=== PATIENT | female | born 1940 | race Caucasian/White ===

== ENCOUNTER → 2017-07-08 08:03 | Outpatient (CLI) | payer MEDICARE, OTHER, SELFPAY ==
[2017-07-08 08:54] LABS: AST(SGOT) 17 U/L (15-37); Alanine Aminotransfer ALT/SGPT 28 U/L (13-56); Albumin, Serum 3.5 g/dL (3.2-5.0); Alkaline Phosphatase 116 U/L (45-117); Bilirubin, Direct 0.12 mg/dL (0.00-0.30); Cholesterol 132 mg/dL (200); Globulin 4.4 g/dL (2.2-4.2); High Density Lipoprotein 41 mg/dL; Protein, Total 7.9 g/dL (6.4-8.2); Triglycerides 171 mg/dL; Very Low Density Lipoprotein 34 mg/dL (5-40)
== END ==
PROVIDERS: Family Provider Family Medicine; PCP Family Medicine; Visit Provider Nurse Practitioner Family
DX: E78.5 Hyperlipidemia, unspecified (principal); Z79.899 Other long term (current) drug therapy
CPT/HCPCS: 36415; 80061; 80076

== ENCOUNTER → 2018-03-28 10:29 | Outpatient (CLI) | payer MEDICARE, OTHER, SELFPAY ==
[2018-03-17 15:46] VITALS: BMI 30.7
--- NOTE | 2018-03-28 10:32 | STEWCON_ITS ---
Reason For Study: S/P CABG Stress Results Protocol: Dobutamine Stress Echo Maximum Predicted HR: 145 bpm Target HR: 123 bpm % Maximum Predicted HR: 94 % DurationHeart Rate Stage (mm:ss) (bpm) BP Dose Comment BASELINE 75 155/75 DILUTED DEFINITY 6 ML USED DSE- 10 MCG 3:41 78 157/74 10.00 DSE- 20 MCG 3:17 91 181/77 20.00 DSE- 30 MCG 3:50 116 154/[id number] 0.25 MG IVP GIVEN @ 1120 DSE- 40 MCG 3:34 136 152/76 40.00 RECOVERY 97 131/73 Stress Duration: 14:22 mm:ss Maximum Stress HR: 136 bpm Baseline Echocardiogram Findings The estimated ejection fraction is 50 %. Stress Echo Wall motion Data Resting WM Intermediate WM Stress WM Resting Wall Motion Wall Motion Stress No regional wall motion No regional wall motion abnormalities noted. abnormalities noted. EKG Data The baseline ECG displays normal sinus rhythm. The patient was titrated from 10 mcg to a maximum of 40 mcg of dobutamine during the stress. The maximum heart rate attained was 136 beats per minute. This was 93% of maximum predicted heart rate. During dobutamine infusion, there were no ST or T wave changes noted to suggest ischemia. No clinical angina was noted. No arrhythmias noted. Interpretation Summary The estimated ejection fraction is 50 %. Normal, adequate, dobutamine echocardiogram. Negative for ischemia by EKG and echocardiographic criteria. No anginal symptoms noted. No arrhythmias noted. Decreased sensitivity due to poor echo windows requiring Definity agent. Hypertensive BP response to dobutamine. Final LVEF of 65%. Test terminated due to attainment of target heart rate. No complications. The study was technically difficult. Contrast injection was performed. Ordering Physician: Tee Jimenez Referring Physician: Tee Jimenez Performed By: Cholo Keyes RCS
== END ==
PROVIDERS: Family Provider Family Medicine; PCP Family Medicine; Referring Provider Internal Medicine Cardiovascular Disease; Visit Provider Internal Medicine Cardiovascular Disease
DX: Z95.1 Presence of aortocoronary bypass graft (principal); I25.10 Atherosclerotic heart disease of native coronary artery without angina pectoris; I49.3 Ventricular premature depolarization; E78.5 Hyperlipidemia, unspecified
CPT/HCPCS: 93017; 93350; J7040; Q9957; A4216; C8928

== ENCOUNTER → 2018-10-10 08:14 | Outpatient (CLI) | payer MEDICARE, OTHER, SELFPAY ==
[2018-10-03 10:11] VITALS: BMI 30.7
[2018-10-10 09:33] LABS: AST(SGOT) 16 U/L (15-37); Alanine Aminotransfer ALT/SGPT 31 U/L (13-56); Albumin, Serum 3.4 g/dL (3.2-5.0); Alkaline Phosphatase 117 U/L (45-117); Bilirubin, Direct 0.09 mg/dL (0.00-0.30); Cholesterol 136 mg/dL (200); High Density Lipoprotein 43 mg/dL; Protein, Total 7.4 g/dL (6.4-8.2); Triglycerides 162 mg/dL; Very Low Density Lipoprotein 32 mg/dL (5-40)
== END ==
PROVIDERS: Family Provider Family Medicine; PCP Family Medicine; Referring Provider Internal Medicine Cardiovascular Disease; Visit Provider Internal Medicine Cardiovascular Disease
DX: E78.5 Hyperlipidemia, unspecified (principal); I25.10 Atherosclerotic heart disease of native coronary artery without angina pectoris
CPT/HCPCS: 36415; 80061; 80076

== ENCOUNTER → 2019-04-20 08:08 | Outpatient (CLI) | payer MEDICARE, OTHER, SELFPAY ==
[2019-04-20 09:03] LABS: Hematocrit 36.1 % (37-47); Hemoglobin 11.4 g/dL (12.0-15.0); Mean Corp Hgb Conc 31.6 g/dL (32-36); Mean Corpuscular Hgb 31.1 pg (27.0-32.0); Mean Corpuscular Volume 98.6 fL (81-99); Platelet Count 213 K/mm3 (150-450); RBC Distribution Width CV 12.8 % (11.6-14.6); Red Blood Count 3.66 M/mm3 (4.2-5.4); White Blood Count 7.3 K/mm3 (4.4-11.0)
[2019-04-20 09:33] LABS: ALB/GLOB Ratio 0.9 RATIO (0.9-2.4); AST(SGOT) 21 U/L (15-37); Alanine Aminotransfer ALT/SGPT 32 U/L (13-56); Albumin, Serum 3.5 g/dL (3.2-5.0); Alkaline Phosphatase 123 U/L (45-117); Anion Gap 6 (5-15); BUN 29 mg/dL (7-18); BUN/Creat Ratio 20.9 RATIO (10-20); Bilirubin, Direct 0.11 mg/dL (0.00-0.30); Chloride 112 mmol/L (98-107); Cholesterol 157 mg/dL (200); Creatinine, Serum 1.39 mg/dL (0.55-1.02); EST Glomerular Filtration Rate 39 mL/min (>60); Est Glom Filt Rate - Afr Amer 47 mL/min (>60); Ferritin 19 ng/mL (8-252); Globulin 4.1 g/dL (2.2-4.2); Glucose 105 mg/dL (74-106); High Density Lipoprotein 50 mg/dL; Iron 76 ug/dL (50-170); Iron Binding Capacity,Total 402 ug/dL (250-450); PERCENT IRON SATURATION 18.9 % (15.0-55.0); Potassium 4.9 mmol/L (3.5-5.1); Protein, Total 7.6 g/dL (6.4-8.2); Sodium Level 143 mmol/L (136-145); Thyroid Stim Hormone (TSH) 2.62 uIU/mL (0.358-3.74); Triglycerides 162 mg/dL; Very Low Density Lipoprotein 32 mg/dL (5-40)
== END ==
PROVIDERS: PCP Student in an Organized Health Care Education/Training Program; Referring Provider Internal Medicine Cardiovascular Disease; Visit Provider Internal Medicine Cardiovascular Disease
DX: E11.9 Type 2 diabetes mellitus without complications (principal); E78.00 Pure hypercholesterolemia, unspecified; E78.5 Hyperlipidemia, unspecified; Z78.0 Asymptomatic menopausal state; Z78.9 Other specified health status
CPT/HCPCS: 80053; 80061; 82248; 82728; 83540; 83550; 84443; 85027

== ENCOUNTER → 2019-04-22 07:49 | Outpatient (CLI) | payer MEDICARE, OTHER, SELFPAY ==
--- NOTE | 2019-04-22 07:50 | ECHOD_ITS ---
Reason For Study: CAD/ASHD Procedure This was a 2D Doppler, Color Flow transthoracic echocardiogram. Exam performed in department. Left Ventricle Normal size and thickness. The estimated ejection fraction is 65 %. Stage 1 diastolic dysfunction. No regional wall motion abnormalities noted. Right Ventricle Normal size and thickness. Normal systolic function. Atria Normal left atrium. Normal right atrium. Normal atrial septum. Mitral Valve Mild diffuse mitral valve thickening. Severe mitral annular calcification extending into the posterior leaflet. Trivial mitral valve insufficiency. Tricuspid Valve Normal tricuspid valve. Trivial tricuspid valve insufficiency. Right ventricular systolic pressure estimated to be 29 mmHg. Aortic Valve Trisinus/trileaflet aortic valve. Aortic sclerosis, no stenosis. Pulmonic Valve Normal pulmonic valve. Great Vessels Normal aortic root. Normal arch. Mild atherosclerosis of the aortic arch. Normal inferior vena cava. Inferior vena cava collapse with sniff. Pericardium/Pleural No pericardial effusion. MMode/2D Measurements & Calculations LVIDd: 4.8 cm IVSd: 1.1 cm Ao root diam: 2.9 cm LVIDs: 3.3 cm LVPWd: 1.2 cm RVDd: 3.1 cm FS: 32.3 % LAV(MOD-bp): 54.3 ml LVAd ap4: 22.6 cm2 SV(MOD-sp4): 38.2 ml LAV(MOD-bp) Indexed: 31.9 ml/m2 EDV(MOD-sp4): 59.6 ml LAV(MOD-sp2): 46.6 ml EDV(sp4-el): 61.8 ml LAV(MOD-sp4): 62.3 ml LVAs ap4: 12.5 cm2 ESV(MOD-sp4): 21.4 ml ESV(sp4-el): 21.1 ml EF(MOD-sp4): 64.1 % EF(sp4-el): 65.9 % SV(sp4-el): 40.7 ml LA A4 area: 19.8 cm2 LA dimension(2D): 4.9 cm RA A4 area: 12.3 cm2 Time Measurements MV dec time: 0.14 sec Doppler Measurements & Calculations MV E max presley: 94.4 cm/sec Lat Peak E' Presley: 6.8 cm/sec Med Peak E' Presley: 3.4 cm/sec MV A max presley: 131.6 cm/sec E/E' lat: 13.8 E/E' med: 27.6 MV E/A: 0.72 MV V2 max: 148.8 cm/sec MV P1/2t max presley: 115.8 cm/sec Ao V2 max: 150.2 cm/sec MV max P.9 mmHg MV P1/2t: 85.0 msec Ao max P.0 mmHg MV V2 mean: 93.8 cm/sec Ao V2 mean: 101.2 cm/sec MV mean P.8 mmHg MV dec slope: 399.3 cm/sec2 Ao mean P.6 mmHg MV V2 VTI: 40.1 cm MVA(P1/2t): 2.6 cm2 Ao V2 VTI: 34.8 cm LV V1 max: 102.8 cm/sec PA V2 max: 108.0 cm/sec TR max presley: 246.0 cm/sec LV V1 max P.2 mmHg TR max P.2 mmHg Interpretation Summary The estimated ejection fraction is 65 %. Stage 1 diastolic dysfunction. Trivial mitral valve insufficiency. Trivial tricuspid valve insufficiency. Right ventricular systolic pressure estimated to be 29 mmHg. Compared to echo report dated 03/23/2013, LV function and RVSP have remained about the same, but mitral annular calcification has gone from moderate to severe. This is of no clinical significance. Ordering Physician: Tee Jimenez Referring Physician: Rosalino Del Valle Performed By: Vilma Felder, MIRELA, RVT
== END ==
PROVIDERS: PCP Student in an Organized Health Care Education/Training Program; Referring Provider Internal Medicine Cardiovascular Disease; Visit Provider Internal Medicine Cardiovascular Disease
DX: I25.10 Atherosclerotic heart disease of native coronary artery without angina pectoris (principal); Z95.1 Presence of aortocoronary bypass graft
CPT/HCPCS: 93306

== ENCOUNTER → 2019-05-06 09:11 | Outpatient (CLI) | payer MEDICARE, OTHER, SELFPAY ==
--- NOTE | 2019-05-06 09:12 | STEWCON_ITS ---
Reason For Study: CAD Stress Results Protocol: Dobutamine Stress Echo With Definity Maximum Predicted HR: 143 bpm Target HR: 122 bpm % Maximum Predicted HR: 85 % Heart Stage Duration Rate BP Comment (mm:ss) (bpm) Basejline 65 156/78No Chest Pain; 6 ML Diluted Definity DSE 10 MCG 3:06 65 146/70No Chest Pain DSE 20 MCG 3:00 82 150/73No Chest Pain DSE 30 MCG 3:00 98 170/72No Chest Pain; Atropine 0.25 MG IVP DSE 40 No Chest Pain; Atropine 0.25 MG At 10:00 Min and 0.50 MG Atropine MCG 4:45 121 165/80At 11:25 Min Recovery 97 142/62No Chest Pain Stress Duration: 13:51 mm:ss Maximum Stress HR: 121 bpm METS: 1 Baseline Echocardiogram Findings The estimated ejection fraction is 65 %. Stress Echo Wall motion Data Resting WM Intermediate WM Stress WM Resting Wall Motion No regional wall motion abnormalities noted. EKG Data The baseline ECG displays normal sinus rhythm. The patient was titrated from 10 mcg to a maximum of 40 mcg of dobutamine during the stress. The maximum heart rate attained was 142 beats per minute. This was 99% of maximum predicted heart rate. During dobutamine infusion, there were no ST or T wave changes noted to suggest ischemia. No clinical angina was noted. Interpretation Summary The estimated ejection fraction is 65 %. Normal, adequate, dobutamine echocardiogram. Negative for ischemia by EKG and echocardiographic criteria. No anginal symptoms noted. Rare PVCs noted. Appropriate blood pressure response to dobutamine. Final LVEF is 75%. Test terminated due to attainment target heart rate. Decrease sensitivity due to poor echo windows requiring Definity agent. Patient tolerated the procedure well. No complications. The study was technically difficult. Contrast injection was performed. Ordering Physician: Tee Jimenez Referring Physician: Tee Jimenez Performed By: Vilma Felder, MIRELA, RVT
== END ==
PROVIDERS: PCP Student in an Organized Health Care Education/Training Program; Referring Provider Internal Medicine Cardiovascular Disease; Visit Provider Internal Medicine Cardiovascular Disease
DX: I25.10 Atherosclerotic heart disease of native coronary artery without angina pectoris (principal); Z95.1 Presence of aortocoronary bypass graft
CPT/HCPCS: 93017; 93350; J7040; Q9957; A4216; C8928

== ENCOUNTER → 2019-10-19 08:49 | Outpatient (CLI) | payer MEDICARE, OTHER, SELFPAY ==
[2019-10-19 09:27] LABS: Hematocrit 37.5 % (37-47); Hemoglobin 12.4 g/dL (12.0-15.0); Mean Corp Hgb Conc 33.1 g/dL (32-36); Mean Corpuscular Hgb 32.1 pg (27.0-32.0); Mean Corpuscular Volume 97.2 fL (81-99); Mean Platelet Vol. 11.2 fl (6.2-12.0); Platelet Count 204 K/mm3 (150-450); RBC Distribution Width CV 12.5 % (11.6-14.6); RBC Distribution Width SD 44.9 fl (35.1-43.9); Red Blood Count 3.86 M/mm3 (4.2-5.4); White Blood Count 8.4 K/mm3 (4.4-11.0)
[2019-10-19 09:54] LABS: Vitamin D,25 Hydroxy 39.1 ng/mL
[2019-10-19 09:55] LABS: AST(SGOT) 17 U/L (15-37); Alanine Aminotransfer ALT/SGPT 34 U/L (13-56); Albumin, Serum 3.6 g/dL (3.2-5.0); Alkaline Phosphatase 116 U/L (45-117); Anion Gap 4 (5-15); BUN 29 mg/dL (7-18); BUN/Creat Ratio 18.4 RATIO (10-20); Bilirubin, Direct 0.12 mg/dL (0.00-0.30); Calcium,Total 8.7 mg/dL (8.5-10.1); Chloride 112 mmol/L (98-107); Cholesterol 146 mg/dL (200); Creatinine, Serum 1.58 mg/dL (0.55-1.02); EST Glomerular Filtration Rate 34 mL/min (>60); Est Glom Filt Rate - Afr Amer 41 mL/min (>60); Ferritin 31 ng/mL (8-252); Globulin 3.9 g/dL (2.2-4.2); Glucose 127 mg/dL (74-106); High Density Lipoprotein 47 mg/dL; Iron Binding Capacity,Total 349 ug/dL (250-450); Phosphorus 4.1 mg/dL (2.5-4.9); Potassium 4.7 mmol/L (3.5-5.1); Protein, Total 7.5 g/dL (6.4-8.2); Sodium Level 142 mmol/L (136-145); Triglycerides 133 mg/dL; Very Low Density Lipoprotein 27 mg/dL (5-40)
== END ==
PROVIDERS: Internal Medicine Cardiovascular Disease; PCP Student in an Organized Health Care Education/Training Program; Referring Provider Student in an Organized Health Care Education/Training Program; Visit Provider Student in an Organized Health Care Education/Training Program
DX: E11.22 Type 2 diabetes mellitus with diabetic chronic kidney disease (principal); N18.3 Chronic kidney disease, stage 3 (moderate); E61.1 Iron deficiency; E78.00 Pure hypercholesterolemia, unspecified; E78.5 Hyperlipidemia, unspecified
CPT/HCPCS: 36415; 80048; 80061; 80076; 82306; 82728; 83550; 83970; 84100; 85027

== ENCOUNTER 2020-03-17 21:50 | Inpatient (IN) | payer MEDICARE, OTHER, SELFPAY ==
[2019-11-26 08:12] VITALS: BMI 28.9
[2020-03-17 21:50] VITALS: BP 168/66; PULSE 98; RESP 16; TEMP 36.3; O2SAT 97; BMI 33.9
--- NOTE | 2020-03-17 21:53 | EKG12_ITS ---
Test Reason : SYNCOPE Blood Pressure : / mmHG Vent. Rate : 091 BPM Atrial Rate : 091 BPM P-R Int : 252 ms QRS Dur : 104 ms QT Int : 386 ms P-R-T Axes : 059 -13 054 degrees QTc Int : 474 ms Sinus rhythm with 1st degree A-V block Low voltage QRS Septal infarct , age undetermined Abnormal ECG Confirmed by JOSE JAMIL, VALENCIA ([id number]), assignment editor CESAR CRESPO ([id number]) on 03/23/2020 6:22:17 AM Referred By: JONH Confirmed By:VALENCIA GARCIA MD
--- NOTE | 2020-03-17 21:54 | ED.RN ---
CALLED FOR EKG PER DR REQUEST, NO OLD EKGS IN [facility], FOUND [facility] IN [facility]
--- NOTE | 2020-03-17 21:55 | ED.VIS.GEN ---
History of Present Illness Chief Complaint: Syncope Informant: Patient, Living Skills Advisor Onset: Weeks - 1 Context: Sudden Onset Timing: Intermittent - 5-10 episodes total, Lasts - minute or less Quality: lightheaded and near-syncope Current Severity: - - gone Maximum Severity: Severe Worsened by: nothing in particular Relieved by: nothing in particular Associated Symptoms: denies. no recent illness. no cp, sob, headache, n/v. Narrative: Patient has been having lightheadedness episodes since 1 week ago, not every day. Tonight it was occurring more often and she was losing consciousness. Her caught her wants. She never fell and injured anything with all of these episodes. Upon EMS picking her up and transporting her, they state they had her on the monitor and witnessed her either go into asystole or fine ventricular fibrillation just before she lost consciousness and this occurred 5 times for them. She is awake now and feels fine. No other prodromal symptoms except for the lightheadedness. She does have a history of heart disease and had a CABG in the past, she does not know the details of all of her cardiac history. She takes no anticoagulants. She does not have a pacemaker. - Past Medical History (1) Atherosclerotic heart disease of [place] coronary artery without angina pectoris Status: Chronic (2) Diabetes mellitus Status: Chronic (3) Hyperlipidemia Status: Chronic (4) Hypertension Status: Chronic Past Medical History - Allergies and Home Meds Allergies/Adverse Reactions: Allergies Sulfa (Sulfonamide Antibiotics) Allergy (Verified 03/17/20 21:54) Unknown Primary Care Physician: Rosalino Del Valle DO [Primary Care Provider] - Doctors: Cardiology - Dr. Lee Surgical History: coronary bypass surgery Lives: Spouse/ Significant Other Smoking Status: Never smoker Review of Systems General: Denies: Chills, Fever, Sweats Eyes: Denies: Visual changes - bilaterally, Diplopia ENT: Denies: Rhinorrhea, Sore throat Cardiovascular: Denies: Chest pain, Palpitations Respiratory: Denies: Dyspnea, Cough, Dyspnea on exertion Gastrointestinal: Denies: Abdominal pain, Nausea, Vomiting, Diarrhea, Melena, Hematochezia Genitourinary: Denies: Dysuria, Hematuria, Frequency Musculoskeletal: Denies: Myalgias, Neck pain, Back pain, Swelling, Extremity Pain Skin: Denies: Rash, Wounds Neurological: Denies: Headache, Weakness, Numbness Physical Exam Vital Signs/Narrative: Vital Signs Temp Pulse Resp BP Pulse Ox 03/17/20 21:50 97.3 F L 98 16 168/66 H 97 Inital Vital Signs reviewed: Yes General: Well nourished, Well developed, No Acute Distress Head: Normocephalic, Atraumatic Eyes: Perrl, EOMI ENT: Moist mucous membranes, No rhinorrhea Neck: Supple, Nontender, No lymphadenopathy, No JVD Cardiovascular: Regular rate, Regular rhythm, No murmurs Respiratory: No distress, CTA bilaterally, Chest nontender Abdomen: Soft, Nontender, Nondistended, Normal bowel sounds Back: Nontender, Normal Inspection Extremities: Nontender, No edema. Negative for: Calf Tenderness Skin: Normal color, No rash, No Trauma Neurological: Alert, Oriented x3, Cranial nerves II-XII grossly intact, Normal Strength, Normal Sensation Psychological: Normal affect, Normal Mood Diagnostic/Tx/Re-eval Laboratory Results 03/17/20 03/17/20 21:55 21:55 WBC 15.0 H RBC 3.22 L Hgb 10.4 L Hct 31.6 L MCV 98.1 MCH 32.3 H MCHC 32.9 RDW Std Deviation 44.3 H RDW Coeff of Vicki 12.3 Plt Count 235 MPV 11.2 Immature Gran % (Auto) 0.600 Neut % (Auto) 82.0 H Lymph % (Auto) 9.3 L [place] % (Auto) 6.3 Eos % (Auto) 1.5 Baso % (Auto) 0.3 Absolute Neuts (auto) 12.3 H Absolute Lymphs (auto) 1.39 Nucleated RBC % 0 Sodium 140 Potassium 4.7 Chloride 113 H Carbon Dioxide 23.0 Anion Gap 4 L BUN 38 H Creatinine 1.53 H Estim Creat Clear Calc 23.24 Est GFR (MDRD) Af Amer 42 L Est GFR (MDRD) Non-Af 35 L BUN/Creatinine Ratio 24.8 H Glucose 215 H Calcium 8.4 L Magnesium 2.7 H Troponin I < 0.015 - Rhythm Strip Rhythm Strip: Sinus Rhythm Rate: 90 Ectopy: None - EKG Initial EKG Interpretation: Sinus Rhythm, No Acute Injury Pattern, AV Block - 1st deg AVB Prior: Unchanged - Medical Decision Making Patient's work-up is as above, no major electrolyte disorders, her magnesium is not low it is actually a little high. In watching her in the ER, she had several episodes of approximately 10-second asystolic pauses with P waves and complete AV blockade. She would recover uneventfully each time. Discussed with Dr. Gray, advises ICU admission and holding her carvedilol which is the only apparent AV robert sarah that she is on. Pacer pads are in place. ED Disposition - Plan for ED Patient: Disposition: Acute Care Hospital [facility] Diagnosis: High-grade atrioventricular block, Cardiac syncope Referrals: Rosalino Del Valle DO [Primary Care Provider] -
--- NOTE | 2020-03-17 22:12 | ED.RN ---
Patient is on the phone with registration and states im blacking out again Pts eyes rolled back and she dropped the phone. Monitor showed asystole. Patient came to within 3 seconds. Patient alert and oriented when yelling her name. Pt denies chest pain, denies headache, denies any symptoms or pain.
[2020-03-17 22:15] VITALS: BP 163/62; PULSE 92; RESP 19; O2SAT 95
[2020-03-17 22:24] LABS: Absolute Lymphocyte Count 1.39 X10^3/uL (0.83-4.51); Absolute Neutrophil Count 12.3 X10^3/uL (2.0-7.7); Basophil# 0.05 X10^3/uL; Basophil% 0.3 % (0-1); Eosinophil# 0.23 X10^3/uL; Eosinophils% 1.5 % (0-5); Hematocrit 31.6 % (37-47); Hemoglobin 10.4 g/dL (12.0-15.0); Lymphocyte # 1.39 X10^3/ul (4.0); Lymphocyte % 9.3 % (19-41); Mean Corp Hgb Conc 32.9 g/dL (32-36); Mean Corpuscular Hgb 32.3 pg (27.0-32.0); Mean Corpuscular Volume 98.1 fL (81-99); Mean Platelet Vol. 11.2 fl (6.2-12.0); Monocyte# 0.94 X10^3/uL; Monocyte% 6.3 % (0-10); NRBC Flagged by Analyzer 0 % (0-5); Neutrophil # 12.27 X10^3/uL (2.7-7.7); Platelet Count 235 K/mm3 (150-450); RBC Distribution Width CV 12.3 % (11.6-14.6); RBC Distribution Width SD 44.3 fl (35.1-43.9); Red Blood Count 3.22 M/mm3 (4.2-5.4)
--- NOTE | 2020-03-17 22:30 | ED.RN ---
patients monitor rang out with asystole alarm, this RN ran to patients bedside. Pt A&Ox3 and denying any pain. Pt states i blacked out again. Dr Gillis aware of all episodes. Rhythm stripe printed and placed in chart.
[2020-03-17 22:36] LABS: Anion Gap 4 (5-15); BUN 38 mg/dL (7-18); BUN/Creat Ratio 24.8 RATIO (10-20); Calcium,Total 8.4 mg/dL (8.5-10.1); Chloride 113 mmol/L (98-107); Creatinine, Serum 1.53 mg/dL (0.55-1.02); EST Glomerular Filtration Rate 35 mL/min (>60); Est Glom Filt Rate - Afr Amer 42 mL/min (>60); Estimated Creatinine Clearance 23.24 ml/min; Glucose 215 mg/dL (74-106); Magnesium 2.7 mg/dL (1.6-2.6); Potassium 4.7 mmol/L (3.5-5.1); Sodium Level 140 mmol/L (136-145)
[2020-03-17 22:45] VITALS: BP 140/63; PULSE 84; RESP 17; O2SAT 95
--- NOTE | 2020-03-17 22:48 | ED.RN ---
Patients monitor rang out asystole again, this RN ran to patients bedside and she states it happened again. continues to deny any symptoms. Dr Gillis aware.
[2020-03-17 23:00] VITALS: BP 132/74; PULSE 88; RESP 16; O2SAT 94
[2020-03-17 23:17] VITALS: BP 121/77; PULSE 85; RESP 18; O2SAT 95
[2020-03-17 23:38] VITALS: BP 156/71; PULSE 85; RESP 17; TEMP 36.6; O2SAT 96
--- NOTE | 2020-03-17 23:54 | HP.PCM_ITS ---
Problem List (1) High-grade atrioventricular block Status: Acute (2) Cardiac syncope Status: Acute (3) S/P CABG x 5 Status: Chronic Comment: Per Dr. Dean @ [facility] (4) Atherosclerotic heart disease of [place] coronary artery without angina pectoris Status: Chronic Qualifiers: [place] vs. transplanted heart: [place] heart Qualified Code(s): I25.10 - Atherosclerotic heart disease of [place] coronary artery without angina pectoris (5) Sinus tachycardia Status: Chronic (6) PVC (premature ventricular contraction) Status: Chronic (7) Diabetes mellitus Status: Chronic (8) Hyperlipidemia Status: Chronic Qualifiers: Hyperlipidemia type: mixed hyperlipidemia Qualified Code(s): E78.2 - Mixed hyperlipidemia (9) Hypertension Status: Chronic Qualifiers: Hypertension type: essential hypertension Qualified Code(s): I10 - Essential (primary) hypertension History of Present Illness Date of Admission: 03/17/20 Chief Complaint: syncope The patient is a 79 year old F with a significant history of CAD status post CABG; diabetes mellitus; hypertension; hyperlipidemia; and PVCs who presents emergency department with syncope. Has symptoms started on the same day of presentation. She described a syncopal episode x1. Also she described an episode where she fell and is unsure whether she had a syncopal episode at that time too. Per paramedics patient had multiple episodes of asystole. At the emergency department EKG showed first-degree AV block. However telemetry showed high-grade AV block. Emergent department doctor discussed the case with cardiology who recommended that patient's beta-sarah should be held and cardiology will follow on consult. At the emergency department patient had multiple episodes of asystole and was paced. Past Medical History Past Medical History (Chronic Problems): Chronic Problems (Last Reviewed 03/18/20 @ 00:[address] Peter Lee MD) S/P CABG x 5 (Chronic 06/13/13) Per Dr. Dean @ [facility] Atherosclerotic heart disease of [place] coronary artery without angina pectoris (Chronic) Sinus tachycardia (Chronic) PVC (premature ventricular contraction) (Chronic) Diabetes mellitus (Chronic) Hyperlipidemia (Chronic) Hypertension (Chronic) Medical History: Medical History (Last Reviewed 03/18/20 @ 00:[address] Peter Lee MD) Atherosclerotic heart disease of [place] coronary artery without angina pectoris (Chronic) I25.10 Sinus tachycardia (Chronic) R00.0 PVC (premature ventricular contraction) (Chronic) I49.3 Diabetes mellitus (Chronic) E11.9 Hyperlipidemia (Chronic) E78.5 Hypertension (Chronic) I10 History of left heart catheterization Onset Date: 04/03/13 Z98.890 Allergies Sulfa (Sulfonamide Antibiotics) Allergy (Verified 03/17/20 21:54) Unknown Home Medications: Ambulatory Orders Medication Instructions Recorded Aspirin [Aspirin, Baby] 81 mg PO DAILY@0800 04/02/13 ferrous sulfate 325 mg (65 mg 325 mg PO DAILY 30 Days 02/05/17 iron) tablet multivitamin 1 tab PO QDAY 02/05/17 insulin glargine 100 unit/mL (3 22 unit SC DAILY ml 10/03/18 mL) subcutaneous pen amlodipine 10 mg tablet 10 mg PO QDAY #90 tab 04/09/19 carvedilol 25 mg tablet 25 mg PO BID #180 tab 04/09/19 hydrochlorothiazide 25 mg tablet 25 mg PO DAILY 04/09/19 isosorbide mononitrate 60 mg 60 mg PO BID #180 tab 04/09/19 tablet,extended release 24 hr losartan 100 mg tablet 100 mg PO DAILY 04/09/19 rosuvastatin 20 mg tablet 20 mg PO DAILY 30 Days #90 tab 04/09/19 Surgical History: Surgical History (Last Reviewed 03/18/20 @ 00:[address] Peter Lee MD) S/P CABG x 5 (Chronic) Onset Date: 06/13/[address] Dean @ [place] H/O endarterectomy Z98.890 with endoscopic vein harvesting and epiaortic mapping History of tubal ligation Z98.51 S/P CABG (coronary artery bypass graft) Onset Date: 06/04/13 Z95.1 HERNANDEZ to LAD, SVG to D1, Lcx, SVG to D2, SVG to RCA Surgical History: coronary bypass surgery Lives: Spouse/ Significant Other Smoking Status: Never smoker - *Family History Maternal Family History: Family History (Last Reviewed 03/18/20 @ 00:[address] Peter Lee MD) Father CAD (coronary artery disease) Mother Diabetes Brother Lung cancer Brother Lung cancer Review of Systems Constitutional: Denies: Chills, Fever, Weight Change HEENT: Denies: Head Aches, Sinus Congestion, Sinus Drainage Cardiovascular: Reports: Light Headedness, Syncope. Denies: Chest Pain, Palpi tations Respiratory: Denies: Cough, Shortness of breath at rest, Sputum production Gastrointestinal: Denies: Abdominal Pain, Nausea, Vomiting Genitourinary: Denies: Dysuria Musculoskeletal: Denies: Joint Pain, Joint Tenderness Skin: Denies: Rash, Wounds Neurological: Denies: Numbness, Tingling, Focal weakness Psychiatric: Denies: Anxiety, Depression, Homicidal Ideations, Suicidal Ideations Hematologic/ Lymphatic: Denies: Easy Bruising, Easy Bleeding VTE Information - Inpt Only VTE Present on Admission: No VTE Mechan Device Prophylaxis: SCD's VTE Pharm Prophylaxis ordered?: No Patient Problems: Active and Suspected Problems (Last Reviewed 03/18/20 @ 00:[address] Peter Lee MD) High-grade atrioventricular block (Acute) Cardiac syncope (Acute) - Physical Exam Vitals/I&O's: Vital Signs Temp Pulse Resp BP Pulse Ox 98 F 85 17 156/71 H 96 03/17/20 23:38 03/17/20 23:38 03/17/20 23:38 03/17/20 23:38 03/17/20 23:38 Oxygen Delivery Method Room Air Weight: 81.5 kg Body Mass Index (BMI) 33.9 General: Alert, Oriented x3, Cooperative HEENT: Atraumatic, PERRLA, EOMI, Normocephalic Neck: Supple, No JVD, Negative Carotid Bruits Lungs: Clear to auscultation, Normal air movement Cardiovascular: Normal S1, Normal S2, No murmurs, Irregular Rate, - - With transcutaneous pacemaker Abdomen: Bowel Sounds Present, Soft, Non Tender Extremities: No edema, Capillary Refill Less than 3 Seconds Skin: No rashes, No breakdown Musculoskeletal: No Tenderness to Palpation of Joints or Extremities Neurological: Cranial nerves II-XII grossly intact Psych/Mental Status: Normal Affect, Appropriate Laboratory Results 03/17/20 21:55: WBC 15.0 H, RBC 3.22 L, Hgb 10.4 L, Hct 31.6 L, MCV 98.1, MCH 32.3 H, MCHC 32.9, RDW Std Deviation 44.3 H, RDW Coeff of Vicki 12.3, Plt Count 235, MPV 11.2, Immature Gran % (Auto) 0.600, Neut % (Auto) 82.0 H, Lymph % (Auto) 9.3 L, [place] % (Auto) 6.3, Eos % (Auto) 1.5, Baso % (Auto) 0.3, Absolute Neuts (auto) 12.3 H, Absolute Lymphs (auto) 1.39, Nucleated RBC % 0 03/17/20 21:55: Sodium 140, Potassium 4.7, Chloride 113 H, Carbon Dioxide 23.0, Anion Gap 4 L, BUN 38 H, Creatinine 1.53 H, Estim Creat Clear Calc 23.24, Est GFR (MDRD) Af Amer 42 L, Est GFR (MDRD) Non-Af 35 L, BUN/Creatinine Ratio 24.8 H , Glucose 215 H, Calcium 8.4 L, Magnesium 2.7 H, Troponin I < 0.015 Assessment/Plan All Active Problems (Last Reviewed 03/18/20 @ 00:[address] Peter Lee MD) High-grade atrioventricular block (Acute) Cardiac syncope (Acute) The patient is a 79 year old F with a significant history of CAD status post CABG; diabetes mellitus; hypertension; hyperlipidemia; and PVCs who presents emergency department with syncope and found to have multiple episodes of asystole and high degree heart block on telemetry. Cardiac syncope Carvedilol held. Transcutaneous pacer placed at emergency department. Patient paced on demand at emergency department; continued Cardiology consult. N.p.o. except meds and anticipation of cutaneous/surgical intervention. CAD status post CABG Aspirin continued Hypertension Blood pressure is not within goal Carvedilol held secondary to high-grade AV block Hydrochlorothiazide continued Imdur continued Losartan continue As needed hydralazine ordered. Trend blood pressure and adjust blood pressure medications. Diabetes mellitus Patient with hyperglycemia on presentation In the setting of n.p.o. we will adjust home basal insulin. Accu-Chek QA [facility] with correction scale insulin ordered. 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 No chemical thromboprophylaxis in the setting of possible continued/surgical intervention. Inpatient E&M: 24751 Init Hosp L3
[2020-03-18] VITALS (28 sets, daily range): BP systolic 112–160; BP diastolic 39–111; PULSE 53–86; RESP 10–21; TEMP 36.6–37.1; O2SAT 92–97; BMI 28.9
[2020-03-18 00:25] LABS: Bedside Glucose 177 mg/dL (70-110)
[2020-03-18 04:07] LABS: Absolute Lymphocyte Count 0.97 X10^3/uL (0.83-4.51); Absolute Neutrophil Count 8.9 X10^3/uL (2.0-7.7); Basophil# 0.01 X10^3/uL; Basophil% 0.1 % (0-1); Eosinophil# 0.02 X10^3/uL; Eosinophils% 0.2 % (0-5); Hematocrit 28.6 % (37-47); Hemoglobin 9.4 g/dL (12.0-15.0); Lymphocyte # 0.97 X10^3/ul (4.0); Lymphocyte % 9.5 % (19-41); Mean Corp Hgb Conc 32.9 g/dL (32-36); Mean Corpuscular Hgb 32.4 pg (27.0-32.0); Mean Corpuscular Volume 98.6 fL (81-99); Mean Platelet Vol. 10.9 fl (6.2-12.0); Monocyte# 0.35 X10^3/uL; Monocyte% 3.4 % (0-10); NRBC Flagged by Analyzer 0 % (0-5); Neutrophil # 8.88 X10^3/uL (2.7-7.7); Neutrophil % 86.6 % (47-70); Platelet Count 204 K/mm3 (150-450); RBC Distribution Width CV 12.4 % (11.6-14.6); RBC Distribution Width SD 44.6 fl (35.1-43.9); White Blood Count 10.3 K/mm3 (4.4-11.0)
[2020-03-18 04:15] LABS: International Normalized Ratio 1.1; Prothrombin Time (Protime)PT. 13.6 SECONDS (11.7-14.9)
[2020-03-18 04:20] LABS: Anion Gap 3 (5-15); BUN 32 mg/dL (7-18); BUN/Creat Ratio 22.9 RATIO (10-20); Calcium,Total 8.3 mg/dL (8.5-10.1); Chloride 113 mmol/L (98-107); EST Glomerular Filtration Rate 39 mL/min (>60); Est Glom Filt Rate - Afr Amer 47 mL/min (>60); Estimated Creatinine Clearance 26.62 ml/min; Glucose 122 mg/dL (74-106); Potassium 4.5 mmol/L (3.5-5.1); Sodium Level 142 mmol/L (136-145)
--- NOTE | 2020-03-18 07:31 | PN_ITS ---
Patient Problems: Active and Suspected Problems (Last Reviewed 03/18/20 @ 00:[address] Peter Lee MD) High-grade atrioventricular block (Acute) Cardiac syncope (Acute) Reason for Visit: High degree AV block with syncopal episode Subjective: Patient is a 79-year-old female admitted with a syncopal episode found to have high degree AV block transfer cutaneous pacemaker placed admitted to the intensive care unit for further management Objective: GENERAL: cooperative HEENT: Atraumatic; EYES; Anicteric, Normal Conjunctiva NECK; supple, normal thyroid, RESPIRATORY: Diminished to auscultation CARDIOVASCULAR: Regular S1 S2, GI: soft, normoactive bowel sounds, : No Renal angle tenderness; EXTREMITIES: No edema, no clubbing, MUSCULOSKELETAL: no muscle waisting NEURO: Awake; no lateralizing signs. SKIN: No Rash PSYCH; Flat affect Vitals/I&O's: Vital Signs Temp Pulse Resp BP Pulse Ox 98.2 F 74 15 143/51 H 96 03/18/20 04:00 03/18/20 06:00 03/18/20 06:00 03/18/20 06:00 03/18/20 06:00 Oxygen Delivery Method Room Air Weight: 71.7 kg Body Mass Index (BMI) 28.9 Intake and Output for Last 24 Hours 03/16/20 03/17/20 03/18/20 23:59 23:59 23:59 Output Total 250 / 250 Balance -250 / -250 Laboratory Results 03/17/20 21:55: WBC 15.0 H, RBC 3.22 L, Hgb 10.4 L, Hct 31.6 L, MCV 98.1, MCH 32.3 H, MCHC 32.9, RDW Std Deviation 44.3 H, RDW Coeff of Vicki 12.3, Plt Count 235, MPV 11.2, Immature Gran % (Auto) 0.600, Neut % (Auto) 82.0 H, Lymph % (Auto) 9.3 L, Bibb % (Auto) 6.3, Eos % (Auto) 1.5, Baso % (Auto) 0.3, Absolute Neuts (auto) 12.3 H, Absolute Lymphs (auto) 1.39, Nucleated RBC % 0 03/17/20 21:55: Sodium 140, Potassium 4.7, Chloride 113 H, Carbon Dioxide 23.0, Anion Gap 4 L, BUN 38 H, Creatinine 1.53 H, Estim Creat Clear Calc 23.24, Est GFR (MDRD) Af Amer 42 L, Est GFR (MDRD) Non-Af 35 L, BUN/Creatinine Ratio 24.8 H , Glucose 215 H, Calcium 8.4 L, Magnesium 2.7 H, Troponin I < 0.015 03/18/20 00:20: POC Glucose 177 H 03/18/20 04:00: WBC 10.3, RBC 2.90 L, Hgb 9.4 L, Hct 28.6 L, MCV 98.6, MCH 32.4 H, MCHC 32.9, RDW Std Deviation 44.6 H, RDW Coeff of Vicki 12.4, Plt Count 204, MPV 10.9, Immature Gran % (Auto) 0.200, Neut % (Auto) 86.6 H, Lymph % (Auto) 9.5 L, Bibb % (Auto) 3.4, Eos % (Auto) 0.2, Baso % (Auto) 0.1, Absolute Neuts (auto) 8.9 H, Absolute Lymphs (auto) 0.97, Nucleated RBC % 0 03/18/20 04:00: Sodium 142, Potassium 4.5, Chloride 113 H, Carbon Dioxide 26.0, Anion Gap 3 L, BUN 32 H, Creatinine 1.40 H, Estim Creat Clear Calc 26.62, Est GFR (MDRD) Af Amer 47 L, Est GFR (MDRD) Non-Af 39 L, BUN/Creatinine Ratio 22.9 H , Glucose 122 H, Calcium 8.3 L 03/18/20 04:00: PT 13.6, INR 1.1 Current Medications Acetaminophen (Acetaminophen 325 Mg Tablet) 650 mg PO Q6H PRN PRN PRN Reason: Pain Score 1-10/Temp > 100.7 F Amlodipine Besylate (Amlodipine 10 Mg Tablet) 10 mg PO DAILY [facility]THA Aspirin (Aspirin 81 Mg Tab.Chew) 81 mg PO DAILY@0800 [facility] Atorvastatin Calcium (Atorvastatin Calcium 40 Mg Tablet) 40 mg PO QHS [facility]THA Dextrose (Dextrose 50%-Water 25 Gm/50 Ml Disp.Syrin) 0 gm IV X1 PRN; Protocol PRN Reason: Hypoglycemia Dextrose (Dextrose 50%-Water 25 Gm/50 Ml Disp.Syrin) 0 gm IV X1 PRN; Protocol PRN Reason: Hypoglycemia Ferrous Sulfate (Ferrous Sulfate 325 Mg Tablet) 325 mg PO DAILYCM [facility] Glucagon (Glucagon 1 Mg/Ml Syringe) 1 mg IM .X1 PRN PRN Reason: Hypoglycemia Hydralazine HCl (Hydralazine 20 Mg/Ml Vial) 5 mg IV Q4H PRN PRN PRN Reason: SBP > 160 OR DBP > 120 Hydrochlorothiazide (Hydrochlorothiazide 25 Mg Tablet) 25 mg PO DAILY [facility] Sodium Chloride () 250 mls @ 15 mls/hr IV .[id number] PRN PRN Reason: Saline Flush Sodium Chloride () 250 mls @ 15 mls/hr IV .[id number] PRN PRN Reason: Additional IVPB Infusion Insulin Glargine (Insulin Glargine 100 Units/Ml Pen) 10 units SC DAILY [facility] Insulin Human Lispro (Insulin Lispro 100 Unit/Ml Insuln.Pen) 0 unit SC Q6 [facility]; Protocol Last Admin: 03/18/20 05:12 Dose: Not Given Documented by: Isosorbide Mononitrate (Isosorbide Mononitrate 60 Mg Tablet) 60 mg PO BID [facility] Losartan Potassium (Losartan Potassium 100 Mg Tablet) 100 mg PO DAILY [facility] Melatonin (Melatonin 3 Mg Tablet) 3 mg PO QHS PRN PRN PRN Reason: INSOMNIA Multivitamins (Multivitamins,Therapeutic Tablet) [facility] Ondansetron HCl (Ondansetron 4 Mg/2 Ml Vial) 4 mg IV Q8H PRN PRN PRN Reason: NAUSEA/VOMITING Prochlorperazine Edisylate (Prochlorperazine 10 Mg/2 Ml Vial) 5 mg IV Q4H PRN PRN PRN Reason: Breakthrough Nausea/Vomiting Senna/Docusate Sodium (Senna/Docusate Sodium 1 Tablet) 2 tablet PO BID PRN PRN PRN Reason: Constipation Sodium Chloride (0.9% Saline Lock 10 Ml Syringe) 10 - 40 ml IV UD PRN PRN Reason: SALINE FLUSH STROKE Vital Signs/Narrative: Vital Signs Temp Pulse Resp BP Pulse Ox 03/18/20 06:00 74 15 143/51 H 96 03/18/20 05:00 70 15 122/58 H 95 03/18/20 04:00 98.2 F 76 16 142/68 H 96 Medical Necessity - Tobacco Use Smoking Status: Never smoker Assessment/Plan All Active Problems (Last Reviewed 03/18/20 @ 00:[address] Peter Lee MD) High-grade atrioventricular block (Acute) Cardiac syncope (Acute) Patient is a 79-year-old female admitted with a syncopal episode found to have high degree AV block transfer cutaneous pacemaker placed admitted to the intensive care unit for further management 1. 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 in anticipation of placement of a permanent pacemaker 2. Coronary artery disease ?Status post CABG patient is on aspirin continued 3. Essential hypertension ?Patient is on HCTZ and losartan continued was on carvedilol held in view of her high degree AV block 4. Diabetes mellitus type II -patient's oral hypoglycemics held. -Placed on long acting insulin, Accu-Cheks a.c. and at bedtime and covered with sliding scale insulin 5. Anemia - Secondary to chronic disorder monitoring H&H and transfuse if patient becomes symptomatic or hemoglobin falls below 7 6. 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 Paroxysmal A. fib ?Rate controlled currently paced 8. DVT prophylaxis ?SCDs for now with plans to initiate systemic anticoagulation after patient's procedure Advance planning; did discuss with the patient regarding advanced directives as well as CODE STATUS. Did explain the various scenarios involved ( FULL CODE, DNR CCA, DNR CCA with no intubation, and DNR CC and what each meant) patient will code with CPR and intubation if needed. Order was placed. Time spent on discussion 18 minutes. Inpatient E&M: 74983 Subs Hosp L3 Procedures: 53004 Advncd Care Plan 30 Min
[2020-03-18] MEDS: hydrALAZINE 20 MG/ML Vial 5 MG IV (08:00)
--- NOTE | 2020-03-18 08:43 | CON.PCM_ITS ---
Reason for Consult Date of Consultation: 03/18/20 History of Present Illness: SILVIO NO, is a 79 F who presented to the emergency room yesterday with a syncopal episode. She says that she has had a few of these episodes over the last week to 10 days. Yesterday she was getting ready for a sandwich and then she felt that she was going to pass out and so he literally slid onto the ground. She was brought to the emergency room and put on telemetric monitoring. While she was there monitoring demonstrated a long pause noted. The she has history of hypertension, diabetes, hyperlipidemia, coronary artery disease status post bypass surgery in June [address] Dean at [facility] with a HERNANDEZ to the LAD, SVG to diagonal 1, SVG to diagonal 2, SVG to lateral circumflex, and SVG to RCA with a right coronary artery endarterectomy, and paroxysmal atrial fibrillation postoperatively. Her echocardiogram dated 03/23/13 showed an EF of 60%, and mild to moderate mitral annular calcification. She has been on a beta- sarah. Pt denies chest, arm, jaw, or neck discomfort. Pt denies symptoms of CHF, or palpitations. Pt denies edema or claudication issues. Pt. denies orthopnea, PND, fever, chills, chronic cough, blood in urine, blood in stool, myalgia, or unexplainable fatigue. Past Medical History Allergies/Adverse Reactions: Allergies Sulfa (Sulfonamide Antibiotics) Allergy (Verified 03/17/20 21:54) Unknown Home Medications: Ambulatory Orders Medication Instructions Recorded Aspirin [Aspirin, Baby] 81 mg PO DAILY@0800 04/02/13 ferrous sulfate 325 mg (65 mg 325 mg PO DAILY 30 Days 02/05/17 iron) tablet multivitamin 1 tab PO QDAY 02/05/17 insulin glargine 100 unit/mL (3 22 unit SC DAILY ml 10/03/18 mL) subcutaneous pen amlodipine 10 mg tablet 10 mg PO QDAY #90 tab 04/09/19 carvedilol 25 mg tablet 25 mg PO BID #180 tab 04/09/19 hydrochlorothiazide 25 mg tablet 25 mg PO DAILY 04/09/19 isosorbide mononitrate 60 mg 60 mg PO BID #180 tab 04/09/19 tablet,extended release 24 hr losartan 100 mg tablet 100 mg PO DAILY 04/09/19 rosuvastatin 20 mg tablet 20 mg PO DAILY 30 Days #90 tab 04/09/19 Past Medical History (Chronic Problems): Chronic Problems (Last Reviewed 03/18/20 @ 00:[address] Peter Lee MD) S/P CABG x 5 (Chronic 06/13/13) Per Dr. Dean @ [facility] Atherosclerotic heart disease of [place] coronary artery without angina pectoris (Chronic) Sinus tachycardia (Chronic) PVC (premature ventricular contraction) (Chronic) Diabetes mellitus (Chronic) Hyperlipidemia (Chronic) Hypertension (Chronic) Surgical History: coronary bypass surgery - *Family History Maternal Family History: Family History (Last Reviewed 03/18/20 @ 00:[address] Peter Lee MD) Father CAD (coronary artery disease) Mother Diabetes Brother Lung cancer Brother Lung cancer Lives: Spouse/ Significant Other Smoking Status: Never smoker Alcohol: None Drugs: None Review of Systems - Review of Systems General: Reports: Fatigue, Weakness. Denies: Fever, Night Sweats HEENT: Denies: Vision Change Cardiovascular: Denies: Chest Discomfort, Shortness of Breath, Orthopnea, PND, Peripheral Edema, Palpitations, Lightheadedness, Dizziness, Near Syncope, Syncope Respiratory: Denies: Cough, Sputum Production, Hemoptysis Gastrointestinal: Denies: Hematemesis, Hematochezia, Melena Genitourinary: Denies: Dysuria, Hematuria Skin: Denies: Rash Neurological: Reports: Dizziness Psychiatric: Denies: Anxiety Endocrine: Denies: Unexplained Weight Loss Hematologic/ Lymphatic: Reports: Anemia Subjectve: Pleasant lady in no distress Objective: Vital Signs Temp Pulse Resp BP Pulse Ox 98.2 F 74 15 143/51 H 96 03/18/20 04:00 03/18/20 06:00 03/18/20 06:00 03/18/20 06:00 03/18/20 06:00 Oxygen Delivery Method Room Air Weight: 158 lb 1.143 oz Body Mass Index (BMI) 28.9 Intake and Output for Last 24 Hours 03/16/20 03/17/20 03/18/20 23:59 23:59 23:59 Output Total 250 / 250 Balance -250 / -250 General: Awake, Alert, Oriented x 3 HEENT: PERRL, EOMI, Sclera Non Icteric Neck: Supple, Good ROM, No Lymph Node Enlargement Lungs: Clear to auscultation Cardiovascular: Regular Rhythm, Normal S1, Normal S2, No Murmurs, No Rubs, No Gallops Vascular: No Carotid Bruits, Normal Femoral Pulses, Normal Radial Pulses, Normal Dorsalis Pedal Pulse, Normal Posterior Tibial Pulses Abdomen: Bowel Sounds Present, Soft, Non Tender, No HSM, No Organomegaly Extremities: No Cyanosis, No Clubbing, No edema Musculoskeletal: No Erythema Skin: No Rashes Lymphatic: No Lymph Node Enlargement Neurological: No Focal Motor or Sensory Deficit Psych/Mental Status: Appropriate 03/17/20 21:55: WBC 15.0 H, RBC 3.22 L, Hgb 10.4 L, Hct 31.6 L, MCV 98.1, MCH 32.3 H, MCHC 32.9, Plt Count 235, MPV 11.2, Immature Gran % (Auto) 0.600, Neut % (Auto) 82.0 H, Lymph % (Auto) 9.3 L, [place]ina % (Auto) 6.3, Eos % (Auto) 1.5, Baso % (Auto) 0.3, Absolute Neuts (auto) 12.3 H, Nucleated RBC % 0 03/17/20 21:55: Sodium 140, Potassium 4.7, Chloride 113 H, Carbon Dioxide 23.0, Anion Gap 4 L, BUN 38 H, Creatinine 1.53 H, Est GFR (MDRD) Af Amer 42 L, Est GFR (MDRD) Non-Af 35 L, BUN/Creatinine Ratio 24.8 H, Glucose 215 H, Calcium 8.4 L, Magnesium 2.7 H, Troponin I < 0.015 03/18/20 04:00: WBC 10.3, RBC 2.90 L, Hgb 9.4 L, Hct 28.6 L, MCV 98.6, MCH 32.4 H, MCHC 32.9, Plt Count 204, MPV 10.9, Immature Gran % (Auto) 0.200, Neut % (Auto) 86.6 H, Lymph % (Auto) 9.5 L, Medina % (Auto) 3.4, Eos % (Auto) 0.2, Baso % (Auto) 0.1, Absolute Neuts (auto) 8.9 H, Nucleated RBC % 0 03/18/20 04:00: Sodium 142, Potassium 4.5, Chloride 113 H, Carbon Dioxide 26.0, Anion Gap 3 L, BUN 32 H, Creatinine 1.40 H, Est GFR (MDRD) Af Amer 47 L, Est GFR (MDRD) Non-Af 39 L, BUN/Creatinine Ratio 22.9 H, Glucose 122 H, Calcium 8.3 L 03/18/20 04:00: PT 13.6, INR 1.1 Rhythm: Sinus rhythm with periods of pauses greater than 10 seconds with capture of the transcutaneous pacemaker EKG: Normal sinus rhythm with no acute changes ECHO: Normal left ventricular ejection fraction estimated EF 65% from 2019 Stress Test: Cardiac Cath: PCI: CT Surgery: Holter monitor: EPS: PPM: CXR: Chest CT Scan: Assessment/Plan 1. Syncope secondary to complete AV block * Patient presented with recurrent syncopal episodes with evidence of high-grade AV block. * The above is likely exacerbated by the beta-sarah. * Would recommend holding off on the beta-sarah for now * Discussed with the patient about a permanent pacemaker implantation. Risk benefits alternatives explained to the patient who understands and agrees to proceed. This will be carried out later today. * 2. Coronary artery disease * Patient status post coronary artery bypass surgery. Appears to be doing well at this time with no evidence of angina. Current EKG demonstrates no acute changes and troponin is negative. * 3. Hypertension * Patient appears to be hypertensive at this time. We will continue to symptomatically treat with known negatively chronotropic agents. * 4. History of atrial fibrillation * Patient appears to have had some postoperative atrial fibrillation. Currently is maintaining sinus rhythm. * On no anticoagulation. * * Thank you for allowing me to participate in the care of your patient. Please don't hesitate to call if any issues arise.
[2020-03-18] MEDS: Dextrose 5%/0.9% NaCl 1,000 ML 75 ML IV (10:00)
--- NOTE | 2020-03-18 11:00 | CASEMGMT ---
RN CM [employer] ARCHITECT CM to room to meet with patient for initial transition planning/care coordination assessment. RN CRYSTAL introduced self and role at [facility].? Pt voices understanding and consents to assessment at this time.? Pt resting in bed in no distress at this time.? Pt is A/O at this time and answers all questions appropriately.?? Care providers, pharmacy, and demographics verified/updated at this time. PCP: Dr Del Valle Specialists: none Preferred Pharmacy: [facility] Insurance: MCR, [employer] Prescription Benefit:? Yes Living Will/HPOA:? States does not have LW or HCPOA .? Interested in more information but states does not want to talk with SW at this time to complete paperwork.? Provided information on advanced directives and given Social Service rac card with number to call if chooses in the future to utilize [facility] social work for advanced directive completion. Educated patient that, if patient so chooses, can come back to [facility] and meet with a SW as an outpatient to complete health care advanced directives. Patient expresses understanding. LNOK: SonRiaz Living Arrangements: Lives alone in one-story home w/2 steps to enter. Independent. Son lives nearby and supportive--stating they talk 1-2 x's/day. He goes grocery shopping/runs errands for her since COVID pandemic. Transportation: Pt states drives self and states no transportation concerns at this time.? Son will take her home @ d/c. DME: ? Has a shower chair. Denies needs for further DME HHC/SNF: No history of either. No needs identified. Denies need for HHC Pt wishes to return home and states has no concerns with going home at time of discharge. CM to follow for any discharge planning/needs.? Pt voices concerns/needs at this time.? Advised pt to ask for CM if any questions/concerns/needs arise.? Voices understanding. PLAN: ?Home w/support of son and discharge plans in place. Sb PATTERSON RN, CM
[2020-03-18] MEDS: amLODIPine 10 MG Tablet PO (11:10)
[2020-03-18] MEDS: Losartan Potassium 100 MG Tablet PO (11:10)
[2020-03-18] MEDS: Aspirin 81 MG TAB.CHEW PO (11:24)
[2020-03-18] MEDS: Ferrous Sulfate 325 MG Tablet PO (11:24)
[2020-03-18 12:26] LABS: Bedside Glucose 123 mg/dL (70-110)
--- NOTE | 2020-03-18 14:25 | CL.IE_ITS ---
Patient: SILVIO NO Study Date: 03/18/2020 Performing: Robi March MD : 1940 Age: 79 Gender: female PROCEDURES PERFORMED [id number] PACER INSERT+DUAL LEADS INDICATIONS Sinoatrial node dysfunction/Sick sinus syndrome PROCEDURE DETAILS The patient was brought to the Catheterization Lab in the postabsorptive nonsedated state. Infor med consent was obtained prior to the procedure. Local anesthetic was given subcutaneously to the le ft subclavian region with Lidocaine 2%. Access was achieved and a guidewire was advanced into the lef t subclavian vein. Incision was made to the left subclavicular area. A peel-away sheath was inserted into the left subclavian vein - 9F. PPM ventricular lead was inserted / positioned to right ventricul ar apex. PPM ventricular lead testing performed. PPM ventricular lead testing performed. A peel-away sheath was inserted into the left subclavian vein - 7f. PPM atrial lead was inserted / positioned to the right atrial appendage. PPM atrial lead testing performed. The Atrial lead sutured in place with 2-0 Silk. The Ventricular PM lead sutured in place with 2-0 Silk. Device pocket was irrigated with an tibiotic - ANCEF. PPM generator was attached to the lead(s) and inserted into the pocket. Subcutaneous closure was completed with 3-0 Vicryl. Skin closure was completed with 4-0 Vicryl. Steri -strips applied to left subclavicular incision. The patient tolerated the procedure well. Estimated Blood Loss: 15 ml's IMPLANTED / EX-PLANTED DEVICES IMPLANTED DEVICE(S): PPM Atrial lead - Dewaxer: [employer], Model # 7840 , Serial # [id number] PPM Ventricular lead - Dewaxer: [employer], Model # 7841 , Serial # [id number] PPM Generator - Dewaxer: [employer], Model # L111 , Serial # [id number] DEVICE PARAMETERS ATRIAL LEAD PARAMETERS: P wave- 1.4 (mV) Current- 1.3 (mA) threshold- 0.6 (V) impedence- 483 (OHMS) VENTRICULAR LEAD PARAMETERS: R wave- 17 (mV) Current- 0.6 (mA) threshold- 0.4 (V) impedence- 724 (OHMS) DEVICE PARAMETERS: Mode- DDD Lower rate- 60 Upper rate- 130 CONCLUSIONS / RECOMMENDATIONS Device Conclusions: Successful implantation of a dual chamber pacemaker Device Recommendations: Follow up with Primary Care Physician PROCEDURE MEDICATIONS Fentanyl 50 mcg IV Versed 1 mg IV Versed 1 mg IV Versed 1 mg IV Oxygen: 2 L/min via nasal cannula Antibiotic given in appropriate timeframe. Ancef 2 Gm IV @ 03/18/2020 12:59:40 Signed By Robi March MD On 03/18/2020 14:24:53 Robi March MD
--- NOTE | 2020-03-18 14:34 | NURSING ---
Pt left for laboratory supervisor at 1225, stable, paced at 40 w/ mA 40.
--- NOTE | 2020-03-18 16:00 | PCM.DC.PACE ---
<Robi March - Last Filed: 03/18/20 16:00> Discharge Diet: No Restrictions Discharge Activity: May Not Drive Call your doctor if your incision/area has: Continuous Slow Oozing, Sudden Increased Bleeding, Increased Pain/ Swelling, Increased Redness, Foul Smelling Discharge, Swelling at the incision site Call your doctor if you observe: Fever of 101 or Higher, Shortness of breath, Dizziness, Fainting spells, Swelling in the ankles, Chest pain, Prolonged hiccoughing, Increased palpitations (irregular heartbeat) Suture Line Care: Avoid Pulling/Pushing, Avoid Pinching/Bending Cleanse incision/area with: Do not get Incision Wet, Keep Dressing Clean & Dry Additional Dressing/Incision Instructions:: When dressing is removed, wash and dry incision. Keep covered with a light bandage if it is rubbing against your clothing. Do not cover the incision with an airtight bandage. Change the bandage daily. Do not remove steri strips. The strips will fall off on their own. Additional Instructions: Signs and Symptoms to Report to Your Doctor at Once - call your doctor's office or Doctor's Registry ([phone]) Call 911 or go to the nearest Emergency Department if you feel you need urgent care. *Infection (fever, increased redness or swelling at the incision site, drainage from the incision increased pain at the pacemaker site) *Shortness of breath *Dizziness *Fainting spells *Swelling in the ankles *Chest pain *Prolonged hiccoughing *Increased palpitaitons (irregular heartbeat) Medications: Take your pain medication as directed. Refer to your discharge instruction sheet for a list of medications you are to take. Allergies/Adverse Reactions: Allergies Sulfa (Sulfonamide Antibiotics) Allergy (Verified 03/17/20 21:54) Unknown Medications to take at Discharge Aspirin [Aspirin, Baby] 81 mg PO DAILY@0800 04/02/13 ferrous sulfate 325 mg (65 mg iron) tablet 325 mg PO DAILY 30 Days 02/05/17 multivitamin 1 tab PO QDAY 02/05/17 insulin glargine 100 unit/mL (3 mL) subcutaneous pen 22 unit SC DAILY ml 10/03/18 amlodipine 10 mg tablet 10 mg PO QDAY #90 tab 04/09/19 hydrochlorothiazide 25 mg tablet 25 mg PO DAILY 04/09/19 isosorbide mononitrate 60 mg tablet,extended release 24 hr 60 mg PO BID #180 tab 04/09/19 losartan 100 mg tablet 100 mg PO DAILY 04/09/19 rosuvastatin 20 mg tablet 20 mg PO DAILY 30 Days #90 tab 04/09/19 Primary Care Physician: Rosalino Del Valle DO [Primary Care Provider] - Test Results: Test results from this visit will be discussed in further detail at your follow-up appointment, if applicable. When: Saturday at 1 pm. [facility] Proposed Discharge Date: 03/19/20 <Osorio Lee - Last Filed: 03/19/20 10:38> Additional Instructions: Signs and Symptoms to Report to Your Doctor at Once - call your doctor's office or Doctor's Registry ([phone]) Call 911 or go to the nearest Emergency Department if you feel you need urgent care. *Infection (fever, increased redness or swelling at the incision site, drainage from the incision increased pain at the pacemaker site) *Shortness of breath *Dizziness *Fainting spells *Swelling in the ankles *Chest pain *Prolonged hiccoughing *Increased palpitaitons (irregular heartbeat) Medications: Take your pain medication as directed. Refer to your discharge instruction sheet for a list of medications you are to take. Test Results: Test results from this visit will be discussed in further detail at your follow-up appointment, if applicable.
[2020-03-18 18:26] LABS: Bedside Glucose 88 mg/dL (70-110)
[2020-03-18] MEDS: Isosorbide Mononitrate 60 MG Tablet PO (21:58)
[2020-03-18] MEDS: Atorvastatin Calcium 40 MG Tablet PO (21:58)
[2020-03-18] MEDS: 0.9% Saline Lock 10 ML Syringe IV (23:33)
[2020-03-18 23:40] LABS: Bedside Glucose 122 mg/dL (70-110)
[2020-03-19 02:58] VITALS: PULSE 69
[2020-03-19 03:45] VITALS: BP 126/57; PULSE 80; RESP 18; TEMP 37.1; O2SAT 94
--- NOTE | 2020-03-19 05:55 | RAD_ITS ---
STUDY: X-RAY CHEST REASON FOR EXAM: Female, 79 years old. Post permanent ICD/pacemaker. TECHNIQUE: PA and lateral views of the chest. COMPARISON: 04/01/2013 FINDINGS: Interval placement of left subclavian dual-lead pacemaker with no pneumothorax. Interval median sternotomy. The lungs are clear and expanded. Elevated right hemidiaphragm which is unchanged. Normal size heart. Normal mediastinum and liza. Normal visualized pulmonary arteries. Normal visualized aortic arch and descending thoracic aorta. Normal visualized thoracic spine. Normal visualized ribs, clavicles, and shoulders. There is no demonstrated abnormality of the visualized soft tissue structures of the upper abdomen. RAD/Chest PA and Lateral IMPRESSION: No active disease. Electronically Signed: Tru Tapia MD at 6:59 EST Tel , Service support ,
[2020-03-19 06:53] VITALS: O2SAT 93
[2020-03-19 07:06] LABS: Bedside Glucose 101 mg/dL (70-110)
[2020-03-19 08:00] VITALS: PULSE 80
[2020-03-19] MEDS: Losartan Potassium 100 MG Tablet PO (08:40)
[2020-03-19] MEDS: Ferrous Sulfate 325 MG Tablet PO (08:40)
[2020-03-19] MEDS: Multivitamins,Therapeutic Tablet 1 TABLET PO (08:40)
[2020-03-19] MEDS: Aspirin 81 MG TAB.CHEW PO (08:40)
[2020-03-19] MEDS: Isosorbide Mononitrate 60 MG Tablet PO (08:41)
[2020-03-19] MEDS: hydroCHLOROthiazide 25 MG Tablet PO (08:41)
[2020-03-19] MEDS: amLODIPine 10 MG Tablet PO (08:42)
[2020-03-19 09:45] VITALS: BP 136/83; PULSE 78; RESP 16; TEMP 36.7; O2SAT 97
--- NOTE | 2020-03-19 10:38 | PCM.PN.CARD ---
Subjectve: The patient is awake and alert. She has no new complaints. She states overall since her PPM was placed she does feel better. Objective: Vital Signs Temp Pulse Resp BP Pulse Ox 98.1 F 78 16 136/83 H 97 03/19/20 09:45 03/19/20 09:45 03/19/20 09:45 03/19/20 09:45 03/19/20 09:45 Oxygen Delivery Method Room Air Weight: 161 lb 6.054 oz Body Mass Index (BMI) 28.9 Intake and Output for Last 24 Hours 03/17/20 03/18/20 03/19/20 23:59 23:59 23:59 Intake Total 1270 / 1320 50 / 50 Output Total 800 / 800 Balance 470 / 520 50 / 50 General: Awake, Alert, Oriented x 3, Cooperative, No Acute Distress HEENT: Atraumatic, Normocephalic, PERRL, EOMI, Sclera Non Icteric Neck: Supple, Good ROM, No JVD Chest Wall: Left Pectoral Incision - Surgical dressing: Clean and dry Lungs: Clear to auscultation Cardiovascular: Regular Rhythm, Normal S1, Normal S2 Abdomen: Bowel Sounds Present, Soft Extremities: No edema Neurological: No Focal Motor or Sensory Deficit Psych/Mental Status: Appropriate Rhythm: Sinus rhythm; electronic ventricular paced rhythm PPM: PPM follow-up report: Per Dr. March: PPM appears to be functioning appropriately. CXR: FINDINGS: Interval placement of left subclavian dual-lead pacemaker with no pneumothorax. Interval median sternotomy. The lungs are clear and expanded. Elevated right hemidiaphragm which is unchanged. Normal size heart. Normal mediastinum and liza. Normal visualized pulmonary arteries. Normal visualized aortic arch and descending thoracic aorta. Normal visualized thoracic spine. Normal visualized ribs, clavicles, and shoulders. There is no demonstrated abnormality of the visualized soft tissue structures of the upper abdomen. RAD/Chest PA and Lateral IMPRESSION: No active disease. Electronically Signed: Tru Tapia MD at 6:59 EST Medical Necessity - Tobacco Use Smoking Status: Never smoker Assessment/Plan 1. 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 At the moment she appears to be symptomatically/hemodynamically stable. The plan is for continued outpatient PPM follow-up. 2. CAD status post CABG The patient has a history of remote CABG. She has been without any acute coronary symptoms. She will continue risk factor modification medical therapy as deemed appropriate. 3. Paroxysmal afibrillation The patient has a history of paroxysmal atrial fibrillation. At the present time she appears to be remaining in sinus rhythm or now an electronic ventricular paced rhythm. She will continue medical therapy and follow-up. 4. Hyperlipidemia She will continue medical management as deemed appropriate. 5. Hypertension Her blood pressure will be followed with adjustment of medications as needed. Comment: The patient's case has been discussed and reviewed with Dr. Dolan. This note was generated using a voice recognition system and there may be incorrect words, spelling or punctuation that were not noted when reviewing the office note prior to saving.
--- NOTE | 2020-03-19 10:38 | PCM.DC ---
- Discharge Diagnoses Current Active Problems: Current Active and Chronic Problems (Last Updated 03/19/20 @ 08:46 by Linda Mullen) High-grade atrioventricular block (Acute) Cardiac syncope (Acute) S/P CABG x 5 (Chronic 06/13/13) Per Dr. Dean @ [place] Atherosclerotic heart disease of [place] coronary artery without angina pectoris (Chronic) Sinus tachycardia (Chronic) PVC (premature ventricular contraction) (Chronic) Diabetes mellitus (Chronic) Hyperlipidemia (Chronic) Hypertension (Chronic) You will use the following diet at home:: No restrictions Discharge Activity: May Not Drive Call your doctor if your incision/area has: Continuous Slow Oozing, Sudden Increased Bleeding, Increased Pain/ Swelling, Increased Redness, Foul Smelling Discharge, Swelling at the incision site Call your doctor if you observe: Fever of 101 or Higher, Shortness of breath, Dizziness, Fainting spells, Swelling in the ankles, Chest pain, Prolonged hiccoughing, Increased palpitations (irregular heartbeat) Suture Line Care: Avoid Pulling/Pushing, Avoid Pinching/Bending Cleanse incision/area with: Do not get Incision Wet, Keep Dressing Clean & Dry Additional Dressing/Incision Instructions:: When dressing is removed, wash and dry incision. Keep covered with a light bandage if it is rubbing against your clothing. Do not cover the incision with an airtight bandage. Change the bandage daily. Do not remove steri strips. The strips will fall off on their own. Allergies/Adverse Reactions: Allergies Sulfa (Sulfonamide Antibiotics) Allergy (Verified 03/17/20 21:54) Unknown Medications to take at Discharge Aspirin [Aspirin, Baby] 81 mg PO DAILY@0800 04/02/13 ferrous sulfate 325 mg (65 mg iron) tablet 325 mg PO DAILY 30 Days 02/05/17 multivitamin 1 tab PO QDAY 02/05/17 insulin glargine 100 unit/mL (3 mL) subcutaneous pen 22 unit SC DAILY ml 10/03/18 amlodipine 10 mg tablet 10 mg PO QDAY #90 tab 04/09/19 hydrochlorothiazide 25 mg tablet 25 mg PO DAILY 04/09/19 isosorbide mononitrate 60 mg tablet,extended release 24 hr 60 mg PO BID #180 tab 04/09/19 losartan 100 mg tablet 100 mg PO DAILY 04/09/19 rosuvastatin 20 mg tablet 20 mg PO DAILY 30 Days #90 tab 04/09/19 Primary Care Physician: Rosalino Del Valle DO [Primary Care Provider] - Please follow up with your Primary Care Physician in: Also schedule an appointment Test Results: Test results from this visit will be discussed in further detail at your follow-up appointment, if applicable. When: Saturday at 1 pm. @[facility] Proposed Discharge Date: 03/19/20
--- NOTE | 2020-03-19 10:39 | DS.PCM_ITS ---
Discharge Date and Diagnosis - Problem List Patient Problems: Active and Suspected Problems (Last Updated 03/19/20 @ 08:46 by Linda Mullen) High-grade atrioventricular block (Acute) Cardiac syncope (Acute) Date of Admission: 03/17/20 Date of Discharge: 03/19/20 - Primary Discharge Diagnosis Acute Problems: Active Problems (Last Updated 03/19/20 @ 08:46 by Linda Mullen) High-grade atrioventricular block (Acute) Cardiac syncope (Acute) - Secondary Discharge Diagnosis Chronic Problems: Chronic Problems (Last Updated 03/19/20 @ 08:46 by Linda Mullen) Sick sinus syndrome (Chronic) Cardiac pacemaker in situ (Chronic 03/18/20) PPM Atrial lead - Project Admin: [employer], Model # 7840 , Serial # [id number] PPM Ventricular lead - Project Admin: [employer], Model # 7841 , Serial # [id number] PPM Generator - Project Admin: [employer], Model # L111 , Serial # [id number] S/P CABG x 5 (Chronic 06/13/13) Per Dr. Dean @ [place] Atherosclerotic heart disease of [place] coronary artery without angina pectoris (Chronic) Sinus tachycardia (Chronic) PVC (premature ventricular contraction) (Chronic) Diabetes mellitus (Chronic) Hyperlipidemia (Chronic) Hypertension (Chronic) Hospital Course and Treatment Imaging Results: 03/19/20 05:55 Chest PA and Lateral [RAD] AM (NON MEDS) Summary of Care Provided: Patient is a 79-year-old female admitted with a syncopal episode found to have high degree AV block transfer cutaneous pacemaker placed admitted to the intensive care unit for further management 1. 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 in anticipation of placement of a permanent pacemaker -03/19/2020; patient underwent pacemaker placement on 03/18/[address] March. Dual-chamber pacemaker was placed 2. Coronary artery disease ?Status post CABG patient is on aspirin continued 3. Essential hypertension ?Patient is on HCTZ and losartan continued was on carvedilol held in view of her high degree AV block 4. Diabetes mellitus type II -patient's oral hypoglycemics held. -Placed on long acting insulin, Accu-Cheks a.c. and at bedtime and covered with sliding scale insulin 5. Anemia - Secondary to chronic disorder monitoring H&H and transfuse if patient becomes symptomatic or hemoglobin falls below 7 6. 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 Paroxysmal A. fib Patient Problems: Active and Suspected Problems (Last Updated 03/19/20 @ 08:46 by Linda Mullen) High-grade atrioventricular block (Acute) Cardiac syncope (Acute) Objective: GENERAL: cooperative HEENT: Atraumatic; EYES; Anicteric, Normal Conjunctiva NECK; supple, normal thyroid, RESPIRATORY: Diminished to auscultation CARDIOVASCULAR: Regular S1 S2, GI: soft, normoactive bowel sounds, : No Renal angle tenderness; EXTREMITIES: Left upper extremity in a sling - Physical Exam Vitals/I&O's: Vital Signs Temp Pulse Resp BP Pulse Ox 98.1 F 78 16 136/83 H 97 03/19/20 09:45 03/19/20 09:45 03/19/20 09:45 03/19/20 09:45 03/19/20 09:45 Oxygen Delivery Method Room Air Weight: 73.2 kg Body Mass Index (BMI) 28.9 Intake and Output for Last 24 Hours 03/17/20 03/18/20 03/19/20 23:59 23:59 23:59 Intake Total 1270 / 1320 50 / 50 Output Total 800 / 800 Balance 470 / 520 50 / 50 Laboratory Results 03/18/20 09:10: COVID-19 (EDVIN) Not Detected 03/18/20 12:20: POC Glucose 123 H 03/18/20 18:18: POC Glucose 88 03/18/20 23:32: POC Glucose 122 H 03/19/20 06:29: POC Glucose 101 03/19/20 09:10: MRSA (PCR) Pending Current Medications Acetaminophen (Acetaminophen 325 Mg Tablet) 650 mg PO Q6H PRN PRN PRN Reason: Pain Score 1-10/Temp > 100.7 F Amlodipine Besylate (Amlodipine 10 Mg Tablet) 10 mg PO DAILY [facility] Last Admin: 03/19/20 08:42 Dose: 10 mg Documented by: Aspirin (Aspirin 81 Mg Tab.Chew) 81 mg PO DAILY@0800 [facility] Last Admin: 03/19/20 08:40 Dose: 81 mg Documented by: Atorvastatin Calcium (Atorvastatin Calcium 40 Mg Tablet) 40 mg PO QHS [facility] Last Admin: 03/18/20 21:58 Dose: 40 mg Documented by: Dextrose (Dextrose 50%-Water 25 Gm/50 Ml Disp.Syrin) 0 gm IV X1 PRN; Protocol PRN Reason: Hypoglycemia Dextrose (Dextrose 50%-Water 25 Gm/50 Ml Disp.Syrin) 0 gm IV X1 PRN; Protocol PRN Reason: Hypoglycemia Ferrous Sulfate ([facility]ous Sulfate 325 Mg Tablet) [facility] Admin: 03/19/20 08:40 Dose: 325 mg Documented by: Glucagon (Glucagon 1 Mg/Ml Syringe) 1 mg IM .X1 PRN PRN Reason: Hypoglycemia Hydralazine HCl (Hydralazine 20 Mg/Ml Vial) 5 mg IV Q4H PRN PRN PRN Reason: SBP > 160 OR DBP > 120 Last Admin: 03/18/20 08:00 Dose: 5 mg Documented by: Hydrochlorothiazide (Hydrochlorothiazide 25 Mg Tablet) 25 mg PO DAILY [facility] Last Admin: 03/19/20 08:41 Dose: 25 mg Documented by: Sodium Chloride () 250 mls @ 15 mls/hr IV .[id number] PRN PRN Reason: Saline Flush Sodium Chloride () 250 mls @ 15 mls/hr IV .[id number] PRN PRN Reason: Additional IVPB Infusion Sodium Chloride () 1,000 mls @ 15 mls/hr IV .Q48H [facility] Last Admin: 03/18/20 10:23 Dose: Not Given Documented by: Insulin Glargine (Insulin Glargine 100 Units/Ml Pen) 10 units SC DAILY [facility] Last Admin: 03/19/20 08:41 Dose: 10 u Documented by: Insulin Human Lispro (Insulin Lispro 100 Unit/Ml Insuln.Pen) 0 unit SC [facility]; Protocol Last Admin: 03/19/20 06:34 Dose: Not Given Documented by: Isosorbide Mononitrate (Isosorbide Mononitrate 60 Mg Tablet) 60 mg PO BID [facility] Last Admin: 03/19/20 08:41 Dose: 60 mg Documented by: Losartan Potassium (Losartan Potassium 100 Mg Tablet) 100 mg PO DAILY [facility] Last Admin: 03/19/20 08:40 Dose: 100 mg Documented by: Melatonin (Melatonin 3 Mg Tablet) 3 mg PO QHS PRN PRN PRN Reason: INSOMNIA Multivitamins (Multivitamins,Therapeutic Tablet) 1 tablet PO DAILY [facility] Last Admin: 03/19/20 08:40 Dose: 1 tablet Documented by: Ondansetron HCl (Ondansetron 4 Mg/2 Ml Vial) 4 mg IV Q8H PRN PRN PRN Reason: NAUSEA/VOMITING Prochlorperazine Edisylate (Prochlorperazine 10 Mg/2 Ml Vial) 5 mg IV Q4H PRN PRN PRN Reason: Breakthrough Nausea/Vomiting Senna/Docusate Sodium (Senna/Docusate Sodium 1 Tablet) 2 tablet PO BID PRN PRN PRN Reason: Constipation Sodium Chloride (0.9% Saline Lock 10 Ml Syringe) 10 - 40 ml IV UD PRN PRN Reason: SALINE FLUSH Last Admin: 03/18/20 23:33 Dose: 10 ml Documented by: Discharge Diet: No Restrictions Discharge Activity: May Not Drive Call your doctor if your incision/area has: Continuous Slow Oozing, Sudden Increased Bleeding, Increased Pain/ Swelling, Increased Redness, Foul Smelling Discharge, Swelling at the incision site Call your doctor if you observe: Fever of 101 or Higher, Shortness of breath, Dizziness, Fainting spells, Swelling in the ankles, Chest pain, Prolonged hiccoughing, Increased palpitations (irregular heartbeat) Suture Line Care: Avoid Pulling/Pushing, Avoid Pinching/Bending Cleanse incision/area with: Do not get Incision Wet, Keep Dressing Clean & Dry Additional Dressing/Incision Instructions:: When dressing is removed, wash and dry incision. Keep covered with a light bandage if it is rubbing against your clothing. Do not cover the incision with an airtight bandage. Change the bandage daily. Do not remove steri strips. The strips will fall off on their own. Home Medications: Medications to take at Discharge Aspirin [Aspirin, Baby] 81 mg PO DAILY@0800 04/02/13 ferrous sulfate 325 mg (65 mg iron) tablet 325 mg PO DAILY 30 Days 02/05/17 multivitamin 1 tab PO QDAY 02/05/17 insulin glargine 100 unit/mL (3 mL) subcutaneous pen 22 unit SC DAILY ml 10/03/18 amlodipine 10 mg tablet 10 mg PO QDAY #90 tab 04/09/19 hydrochlorothiazide 25 mg tablet 25 mg PO DAILY 02/06/20 isosorbide mononitrate 60 mg tablet,extended release 24 hr 60 mg PO BID #180 tab 04/09/19 losartan 100 mg tablet 100 mg PO DAILY 04/09/19 rosuvastatin 20 mg tablet 20 mg PO DAILY 30 Days #90 tab 04/09/19 Primary Care Physician: Rosalino Del Valle DO [Primary Care Provider] - Please follow up with your Primary Care Physician in: Also schedule an appointment When: Saturday at 1 pm. [facility] Additional Instructions: Signs and Symptoms to Report to Your Doctor at Once - call your doctor's office or Doctor's Registry ([phone]) Call 911 or go to the nearest Emergency Department if you feel you need urgent care. *Infection (fever, increased redness or swelling at the incision site, drainage from the incision increased pain at the pacemaker site) *Shortness of breath *Dizziness *Fainting spells *Swelling in the ankles *Chest pain *Prolonged hiccoughing *Increased palpitaitons (irregular heartbeat) Medications: Take your pain medication as directed. Refer to your discharge instruction sheet for a list of medications you are to take. Disposition: Home Minutes spent on discharge:: 45 Patient Condition:: Stable Medical Necessity - Tobacco Use Smoking Status: Never smoker Meaningful Use Info Meaningful Use Diagnoses (Choose all that apply): None applicable Inpatient E&M: [id number] [facility]
[2020-03-19 11:53] LABS: M R Staph aureus DNA By PCR Negative (Negative); Probe Check PASS; Specimen Processing Control PASS
--- NOTE | 2020-03-21 16:11 | CASEMGMT ---
JUSTEN ROJAS Discharge Follow-up Phone Call: KIRSTEN: Denisa Strata: 3 Call Date: 03/21/20 Discharge Date: 03/19/20 Time of Call: 1410 Duration: 1 min Admitting Diagnosis: Cardiac syncope JUSTEN ROJAS attempted to complete follow-up phone call after recent hospitalization. No answer, voice message left with return contact information.
== END 2020-03-19 11:49 | disposition home or self-care (01) | DRG 242 ==
LOC: ED 23:09 → ICU 03-18 07:19 → PCU 03-21 09:29
PROVIDERS: Internal Medicine Cardiovascular Disease; Admitting Provider Hospitalist; Emergency Provider Emergency Medicine; PCP Student in an Organized Health Care Education/Training Program; Visit Provider Internal Medicine
DX: R55 Syncope and collapse (principal); I46.9 Cardiac arrest, cause unspecified; I44.2 Atrioventricular block, complete; I25.10 Atherosclerotic heart disease of native coronary artery without angina pectoris; Z95.1 Presence of aortocoronary bypass graft; E78.2 Mixed hyperlipidemia; I12.9 Hypertensive chronic kidney disease with stage 1 through stage 4 chronic kidney disease, or unspecified chronic kidney disease; E11.22 Type 2 diabetes mellitus with diabetic chronic kidney disease; N18.30 Chronic kidney disease, stage 3 unspecified; E11.65 Type 2 diabetes mellitus with hyperglycemia; I49.5 Sick sinus syndrome; D64.9 Anemia, unspecified; I48.0 Paroxysmal atrial fibrillation
CPT/HCPCS: 33208; 71046; 80048; 82962; 83735; 84484; 85025; 85610; 87635; 87641; 93005; 99152; 99153; 99285; J7030; J7050; A4216; C1894; U0002

== ENCOUNTER 2020-05-18 18:25 | Emergency (ER) | payer OTHER, MEDICARE, SELFPAY ==
[2020-03-18 00:12] VITALS: BMI 28.9
[2020-05-18 18:27] VITALS: BP 153/69; PULSE 100; RESP 20; TEMP 36.7; O2SAT 96; BMI 31.4
--- NOTE | 2020-05-18 18:41 | CT_ITS ---
STUDY: CT BRAIN WITHOUT CONTRAST REASON FOR EXAM: Female, 80 years old. Injury/Pain RADIATION DOSAGE (If Supplied By Facility): CTDIvol = ( 44.99 ) mGy, DLP = ( 745.49 ) mGycm TECHNIQUE: Transaxial CT imaging of the brain was performed without administration of intravenous contrast material. Individualized dose optimization techniques were used for this CT. COMPARISON: No relevant priors. FINDINGS: Normal soft tissue structures. Normal calvarium. Calcification of cavernous carotids. Moderate atrophy and periventricular white matter ischemic changes. 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 Normal basal ganglia and thalami. Normal brainstem. Normal cerebellum. There is no intracranial hemorrhage. There are no findings of an acute ischemic infarction. Postsurgical changes of the orbits. Normal visualized paranasal sinuses. CT/Brain/Head without Contrast IMPRESSION: Moderate atrophy and periventricular white matter ischemic changes.. 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 No evidence for acute intracranial bleed Electronically Signed: Willard Tom MD at 19:54 EDT , Service support ,
--- NOTE | 2020-05-18 18:41 | CT_ITS ---
STUDY: CT CERVICAL SPINE WITHOUT CONTRAST REASON FOR EXAM: Female, 80 years old. Injury/Pain RADIATION DOSAGE (If Supplied By Facility): CTDIvol = ( 22.37 ) mGy, DLP = ( 448.29 ) mGycm TECHNIQUE: High resolution transaxial imaging was performed without contrast material. Sagittal and coronal images were reconstructed. Individualized dose optimization techniques were used for this CT. COMPARISON: None FINDINGS: Normal craniovertebral junction. Normal anterior atlantoaxial articulation. Normal odontoid process. Normal cervical lordosis. Normal vertebral bodies and posterior osseous elements. C2-3: Normal endplates. Normal disc height and morphology. Normal central canal and intervertebral neuroforamina. C3-4: Grade 1 spondylolisthesis Normal endplates. Normal disc height and minor bulging disc osteophyte complex.. Normal central canal and intervertebral neuroforamina. C4-5: Narrowed disc space and endplate spurring. Mild narrowing of the central canal. Severe bilateral neuroforaminal stenosis secondary to bony hypertrophy. C5-6: Narrowed disc space with endplate spurring. Small central osteophyte protrusion narrowing the central canal impinging upon the cord. Severe bilateral neuroforaminal stenosis secondary to bony hypertrophy C6-7: Narrowed disc space and endplate spurring. Mild narrowing of the central canal. Severe bilateral neuroforaminal stenosis secondary to bony hypertrophy. C7-T1: Normal endplates. Normal disc height and morphology. Normal central canal and intervertebral neuroforamina. Ossification of the nuchal ligament at C4-5. CT/Spine Cervical without Contras IMPRESSION: No acute fracture or subluxation.. Moderate spondylosis and multilevel spinal stenosis secondary to bony hypertrophy most severe at 56 and C6-7 Electronically Signed: Willard Tom MD at 19:58 EDT , Service support ,
[2020-05-18] MEDS: Acetaminophen 325 MG Tablet 650 MG PO (18:49)
--- NOTE | 2020-05-18 19:12 | RAD_ITS ---
STUDY: X-RAY - UNILATERAL RIBS ( LEFT ) WITH CHEST REASON FOR EXAM: Female, 80 years old. pain, truama TECHNIQUE - RIBS: 3 view(s) of the ribs. TECHNIQUE - CHEST: PA COMPARISON: None. FINDINGS - RIBS: There appears to be hairline fracture of the left eighth rib and minimal inferior cortical disruption of the seventh rib. FINDINGS - CHEST: The lungs are clear and expanded. There is no demonstrated pleural abnormality. Postop change status post median sternotomy and CABG. Pacer noted on the left with electrodes in satisfactory position Normal size heart. Normal mediastinum and liza. Normal visualized pulmonary arteries. Normal visualized aortic arch and descending thoracic aorta. Normal visualized thoracic spine. Normal visualized ribs, clavicles, and shoulders. There is no demonstrated abnormality of the visualized soft tissue structures of the upper abdomen. RAD/Ribs Uni Min 3V w/PA Chest IMPRESSION: RIBS: Hairline fracture of left eighth rib and minimal fracture of the seventh rib. CHEST: No acute cardiopulmonary pathology.. Electronically Signed: Willard Tom MD at 20:17 EDT , Service support ,
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
[2020-05-18 20:27] VITALS: BP 126/63; PULSE 95; RESP 22; O2SAT 94
[2020-05-18] MEDS: Lidocaine 5% Patch 1 PATCH TOPICAL (21:13)
[2020-05-18 21:14] VITALS: BP 136/78; PULSE 99; RESP 18; O2SAT 98
== END 2020-05-18 21:15 | disposition home or self-care (01) ==
PROVIDERS: Emergency Provider Emergency Medicine; PCP Student in an Organized Health Care Education/Training Program
DX: S22.32XA Fracture of one rib, left side, initial encounter for closed fracture (principal); I25.10 Atherosclerotic heart disease of native coronary artery without angina pectoris; I10 Essential (primary) hypertension; E78.5 Hyperlipidemia, unspecified; E11.9 Type 2 diabetes mellitus without complications; Z79.4 Long term (current) use of insulin; Z79.82 Long term (current) use of aspirin; Z95.0 Presence of cardiac pacemaker; V89.2XXA Person injured in unspecified motor-vehicle accident, traffic, initial encounter
CPT/HCPCS: 70450; 71101; 72125; 99285

== ENCOUNTER 2020-05-21 11:20 | Inpatient (IN) | payer MEDICARE, OTHER, SELFPAY ==
[2020-05-21] VITALS (8 sets, daily range): BP systolic 133–147; BP diastolic 69–79; PULSE 79–95; RESP 16–19; TEMP 36.5–37; O2SAT 91–97; BMI 28.3; BMI 28.0
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
--- NOTE | 2020-05-21 11:41 | EKG12_ITS ---
Test Reason : Blood Pressure : / mmHG Vent. Rate : 078 BPM Atrial Rate : 078 BPM P-R Int : 208 ms QRS Dur : 168 ms QT Int : 452 ms P-R-T Axes : 031 254 046 degrees QTc Int : 515 ms Atrial-sensed ventricular-paced rhythm Abnormal ECG Confirmed by JSOE JAMIL, VALENCIA ([id number]), assignment desk editor BELEN FINN ([id number]) on 05/24/2020 8:53:42 AM Referred By: Confirmed By:VALENCIA GARCIA MD
[2020-05-21] MEDS: Morphine 4 MG/ML Syringe IV (12:09)
[2020-05-21] MEDS: Ondansetron 4 MG/2 ML Vial IV (12:09)
[2020-05-21 12:12] LABS: Absolute Lymphocyte Count 1.34 X10^3/uL (0.83-4.51); Absolute Neutrophil Count 9.8 X10^3/uL (2.0-7.7); Basophil# 0.03 X10^3/uL; Basophil% 0.2 % (0-1); Eosinophil# 0.33 X10^3/uL; Eosinophils% 2.7 % (0-5); Hematocrit 36.7 % (37-47); Hemoglobin 11.8 g/dL (12.0-15.0); Lymphocyte # 1.34 X10^3/ul (4.0); Lymphocyte % 10.8 % (19-41); Mean Corp Hgb Conc 32.2 g/dL (32-36); Mean Corpuscular Hgb 31.6 pg (27.0-32.0); Mean Corpuscular Volume 98.1 fL (81-99); Mean Platelet Vol. 11.3 fl (6.2-12.0); Monocyte# 0.85 X10^3/uL; Monocyte% 6.9 % (0-10); NRBC Flagged by Analyzer 0 % (0-5); Neutrophil # 9.82 X10^3/uL (2.7-7.7); Neutrophil % 79.2 % (47-70); POSITIVE COUNT YES; Platelet Count 198 K/mm3 (150-450); Red Blood Count 3.74 M/mm3 (4.2-5.4); White Blood Count 12.4 K/mm3 (4.4-11.0)
[2020-05-21 12:28] LABS: ALB/GLOB Ratio 0.8 RATIO (0.9-2.4); AST(SGOT) 24 U/L (15-37); Alanine Aminotransfer ALT/SGPT 28 U/L (13-56); Albumin, Serum 3.3 g/dL (3.2-5.0); Alkaline Phosphatase 104 U/L (45-117); Anion Gap 6 (5-15); BUN 41 mg/dL (7-18); BUN/Creat Ratio 25.8 RATIO (10-20); Calcium,Total 8.9 mg/dL (8.5-10.1); Chloride 110 mmol/L (98-107); Creatinine, Serum 1.59 mg/dL (0.55-1.02); EST Glomerular Filtration Rate 33 mL/min (>60); Est Glom Filt Rate - Afr Amer 40 mL/min (>60); Globulin 4.3 g/dL (2.2-4.2); Glucose 160 mg/dL (74-106); Potassium 4.4 mmol/L (3.5-5.1); Protein, Total 7.6 g/dL (6.4-8.2); Sodium Level 142 mmol/L (136-145)
[2020-05-21 12:31] LABS: Differential Indicated SCAN CRITERIA MET
[2020-05-21 12:32] LABS: Platelet Estimate ADEQUATE (ADEQ)
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
[2020-05-21] MEDS: 0.9% Normal Saline 1,000 ML 75 ML IV (16:31)
[2020-05-21] MEDS: oxyCODONE 5 MG Tablet 10 MG PO (16:32)
[2020-05-21] MEDS: Polyethylene Glycol 3350 17 GM PACKET PO (16:32)
[2020-05-21] MEDS: Acetaminophen 325 MG Tablet 650 MG PO (16:32)
[2020-05-21] MEDS: 0.9% Saline Lock 10 ML Syringe IV (16:32)
[2020-05-21 16:41] LABS: Bedside Glucose 74 mg/dL (70-110)
[2020-05-21] MEDS: Isosorbide Mononitrate 60 MG Tablet PO (21:06)
[2020-05-21] MEDS: Atorvastatin Calcium 40 MG Tablet PO (21:06)
[2020-05-22] VITALS (11 sets, daily range): BP systolic 141–147; BP diastolic 64–83; PULSE 99–109; RESP 16–18; TEMP 36.8–37.1; O2SAT 85–98
[2020-05-22] MEDS: oxyCODONE 5 MG Tablet 10 MG PO ×3 (03:41→16:32)
[2020-05-22] MEDS: Acetaminophen 325 MG Tablet 650 MG PO ×2 (03:42→11:52)
[2020-05-22 03:46] LABS: Bedside Glucose 111 mg/dL (70-110)
[2020-05-22] MEDS: 0.9% Normal Saline 1,000 ML 75 ML IV (03:46)
[2020-05-22 05:13] LABS: Absolute Lymphocyte Count 1.66 X10^3/uL (0.83-4.51); Absolute Neutrophil Count 8.1 X10^3/uL (2.0-7.7); Basophil# 0.03 X10^3/uL; Basophil% 0.3 % (0-1); Eosinophil# 0.57 X10^3/uL; Eosinophils% 5.1 % (0-5); Hematocrit 34.1 % (37-47); Hemoglobin 10.7 g/dL (12.0-15.0); Lymphocyte # 1.66 X10^3/ul (4.0); Lymphocyte % 14.8 % (19-41); Mean Corp Hgb Conc 31.4 g/dL (32-36); Mean Corpuscular Volume 98.8 fL (81-99); Mean Platelet Vol. 10.9 fl (6.2-12.0); Monocyte# 0.81 X10^3/uL; Monocyte% 7.2 % (0-10); NRBC Flagged by Analyzer 0 % (0-5); Neutrophil # 8.09 X10^3/uL (2.7-7.7); Neutrophil % 72.2 % (47-70); Platelet Count 204 K/mm3 (150-450); Red Blood Count 3.45 M/mm3 (4.2-5.4); White Blood Count 11.2 K/mm3 (4.4-11.0)
[2020-05-22 06:11] LABS: Bedside Glucose 101 mg/dL (70-110)
[2020-05-22 06:33] LABS: Anion Gap 4 (5-15); BUN 36 mg/dL (7-18); BUN/Creat Ratio 23.8 RATIO (10-20); Calcium,Total 8.2 mg/dL (8.5-10.1); Chloride 113 mmol/L (98-107); Creatinine, Serum 1.51 mg/dL (0.55-1.02); EST Glomerular Filtration Rate 35 mL/min (>60); Est Glom Filt Rate - Afr Amer 43 mL/min (>60); Estimated Creatinine Clearance 23.17 ml/min; Glucose 108 mg/dL (74-106); Potassium 4.7 mmol/L (3.5-5.1); Sodium Level 141 mmol/L (136-145)
[2020-05-22] MEDS: Aspirin 81 MG TAB.CHEW PO (08:42)
[2020-05-22] MEDS: Losartan Potassium 100 MG Tablet PO (08:42)
[2020-05-22] MEDS: amLODIPine 10 MG Tablet PO (08:42)
[2020-05-22] MEDS: Ferrous Sulfate 325 MG Tablet PO (08:42)
[2020-05-22] MEDS: Isosorbide Mononitrate 60 MG Tablet PO ×2 (08:42→22:01)
[2020-05-22] MEDS: hydroCHLOROthiazide 25 MG Tablet PO (08:42)
[2020-05-22] MEDS: Magnesium Hydroxide 30 ML UDC PO (08:58)
[2020-05-22] MEDS: Polyethylene Glycol 3350 17 GM PACKET PO (08:58)
[2020-05-22] MEDS: BRIMONIDINE 0.2% 5ML BOTTLE 1 DRP LEFT EYE ×2 (08:59→22:00)
[2020-05-22] MEDS: Timolol 0.5% 5ML OPTH.BTL 1 DRP LEFT EYE ×2 (08:59→22:00)
--- NOTE | 2020-05-22 09:05 | NURSING ---
SPO2 93% after ambulating on room air, once in chair, pt spo2 89-90% at rest. O2 2L reapplied and encouraged/reinforced/reminded again of I.S. use.
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
[2020-05-22 10:56] LABS: Color, Urine Yellow (Yellow); Glucose, Dipstick Normal (Normal); Ketone-Dipstick Negative (Negative); Leukocyte Esterase-Dipstick 500 /ul (Negative); Nitrite-Dipstick Negative (Negative); Occult Blood-Urine 50 /ul (Negative); Protein-Dipstick 15 mg/dl (Negative); Specific Gravity, Urine 1.015 (1.002-1.030); Urine Bilirubin Dipstick Negative (Negative); Urine Clarity Sl. Cloudy (Clear); Urine Urobilinogen Normal (Normal)
[2020-05-22 11:51] LABS: Bedside Glucose 209 mg/dL (70-110)
[2020-05-22] MEDS: Insulin Lispro 100 UNIT/ML INSULN.PEN SC (11:52)
[2020-05-22 16:45] LABS: Bedside Glucose 129 mg/dL (70-110)
[2020-05-22] MEDS: 0.9% Saline Lock 10 ML Syringe IV (16:52)
[2020-05-22] MEDS: Atorvastatin Calcium 40 MG Tablet PO (22:01)
[2020-05-22 22:10] LABS: Bedside Glucose 122 mg/dL (70-110)
[2020-05-23 03:00] VITALS: BP 112/61; PULSE 86; RESP 16; TEMP 36.8; O2SAT 96
[2020-05-23] MEDS: oxyCODONE 5 MG Tablet 10 MG PO (04:38)
[2020-05-23 05:48] LABS: Absolute Lymphocyte Count 1.57 X10^3/uL (0.83-4.51); Absolute Neutrophil Count 7.8 X10^3/uL (2.0-7.7); Basophil# 0.04 X10^3/uL; Basophil% 0.4 % (0-1); Eosinophil# 0.56 X10^3/uL; Eosinophils% 5.2 % (0-5); Hematocrit 33.4 % (37-47); Hemoglobin 10.4 g/dL (12.0-15.0); Lymphocyte # 1.57 X10^3/ul (4.0); Lymphocyte % 14.6 % (19-41); Mean Corp Hgb Conc 31.1 g/dL (32-36); Mean Corpuscular Hgb 31.2 pg (27.0-32.0); Mean Corpuscular Volume 100.3 fL (81-99); Mean Platelet Vol. 10.8 fl (6.2-12.0); Monocyte% 7.4 % (0-10); NRBC Flagged by Analyzer 0 % (0-5); Neutrophil # 7.78 X10^3/uL (2.7-7.7); Neutrophil % 72.1 % (47-70); Platelet Count 211 K/mm3 (150-450); RBC Distribution Width CV 13.1 % (11.6-14.6); RBC Distribution Width SD 47.8 fl (35.1-43.9); Red Blood Count 3.33 M/mm3 (4.2-5.4); White Blood Count 10.8 K/mm3 (4.4-11.0)
[2020-05-23 06:03] LABS: Anion Gap 6 (5-15); BUN 42 mg/dL (7-18); BUN/Creat Ratio 25.1 RATIO (10-20); Calcium,Total 8.2 mg/dL (8.5-10.1); Chloride 111 mmol/L (98-107); Creatinine, Serum 1.67 mg/dL (0.55-1.02); EST Glomerular Filtration Rate 32 mL/min (>60); Est Glom Filt Rate - Afr Amer 38 mL/min (>60); Estimated Creatinine Clearance 20.95 ml/min; Glucose 113 mg/dL (74-106); Potassium 4.9 mmol/L (3.5-5.1); Sodium Level 143 mmol/L (136-145)
[2020-05-23 06:45] LABS: Bedside Glucose 114 mg/dL (70-110)
[2020-05-23 07:20] VITALS: O2SAT 92
[2020-05-23 08:38] VITALS: BP 136/70; PULSE 104; RESP 16; TEMP 36.6; O2SAT 94
[2020-05-23] MEDS: BRIMONIDINE 0.2% 5ML BOTTLE 1 DRP LEFT EYE (08:41)
[2020-05-23] MEDS: Timolol 0.5% 5ML OPTH.BTL 1 DRP LEFT EYE (08:41)
[2020-05-23] MEDS: Acetaminophen 325 MG Tablet 650 MG PO (08:46)
[2020-05-23] MEDS: hydroCHLOROthiazide 25 MG Tablet PO (08:47)
[2020-05-23] MEDS: Isosorbide Mononitrate 60 MG Tablet PO (08:47)
[2020-05-23] MEDS: Losartan Potassium 100 MG Tablet PO (08:47)
[2020-05-23] MEDS: Ferrous Sulfate 325 MG Tablet PO (08:47)
[2020-05-23] MEDS: Aspirin 81 MG TAB.CHEW PO (08:47)
[2020-05-23] MEDS: Polyethylene Glycol 3350 17 GM PACKET PO (08:47)
[2020-05-23] MEDS: amLODIPine 10 MG Tablet PO (08:47)
[2020-05-23 08:54] VITALS: O2SAT 89
[2020-05-23 08:58] VITALS: O2SAT 94
--- NOTE | 2020-05-23 09:17 | CASEMGMT ---
[facility] Palliative Care Screening Tool completed. Pt did not meet criteria.
[2020-05-23] MEDS: Insulin Lispro 100 UNIT/ML INSULN.PEN SC (11:26)
--- NOTE | 2020-05-23 11:34 | PCM.TXEXTCAR ---
- Diet 05/21/20 15:06 Diet: Consistent Carb - Calorie Controlled Food consistency:: Regular Liquid Consistency:: Regular/Thin Is pt able to select menu?: Yes How many daily calories?: 1800 calorie - Routine Orders/Code Status Enema Type: Fleetz Enema Frequency: Daily PRN Suppository Type: Dulcolax 10mg Suppository Frequency: Daily PRN O2 Frequency: PRN Keep PO Greater than or Equal to (%): 90 - Therapies Weight Bearing: Weight bearing as tolerated Physical Therapy: Eval and Treat Occupational Therapy: Eval and Treat - Allergies/Procedures Done in Hospital Allergies/Adverse Reactions: Allergies Sulfa (Sulfonamide Antibiotics) Allergy (Verified 05/21/20 11:23) Unknown Procedures: None - Type of Care/Length of Stay Estimated LOS: Convalescent Care Less Than 30 days Type of Care Needed: Skilled Rehab Potential: Good Prognosis: Good - Additional Orders/Day of Discharge Day of Discharge: 05/23/20 - Follow Up Care Primary Care Physician: Rosalino Del Valle DO [Primary Care Provider] - Please follow up with your Primary Care Physician in: 1-2 weeks
[2020-05-23 11:35] LABS: Bedside Glucose 183 mg/dL (70-110)
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
--- NOTE | 2020-05-23 11:59 | CASEMGMT ---
Addendum entered by Carmela Masterson 05/23/20 13:40: SW received message from pt's son Riaz requesting call back. SW placed a call back to Riaz and updated him on discharge to [facility] today. SW did update Riaz that [facility] is allowing visitors but visitation is restricted. SW also updated pt on restricted visitation. Plan: [facility] today Original Note: Social Work Assessment SW updated that pt is agreeable to going somewhere for rehabilitation at discharge. Referral Date: 05/23/2020 [place] of Assessment 05/23/2020 Reason for consult: SNF/[facility] placement Informant: MD Personal Status: SW met with pt to complete initial assessment. Pt is alert and orientated and answers questions appropriately. Living Arrangement: Pt states she lives with her dog in a one story home with four steps to enter. Pt states she has railings next to the steps. DME: Pt states her had a walker and wheelchair that she is able to use if needed. Pt states she doesn't normally wear oxygen at home. ADLs: Pt states she was previously independent, states she still drives. Advanced Directives: Pt denied and denied wanting to complete them. Substance Abuse Hx: Pt denied Mental Health Hx: Pt denied PCP: Rosalino Del Valle [facility]: [facility] in [facility], pt states also through [place] SNF: Denied SW spoke with pt about discharge planning. Patient was provided a list of SNF and IRF providers including quality and resource use data and consistent with the patient?s preferred geographic region, medical needs, and insurance network. Pt's preferred provider is [facility]. BRUCE placed a call to Karissa with and provided referral. [facility] is able to accept pt today. SW updated pt on acceptance to [facility] today and discharge to [facility]. Pt asked that her son Riaz be updated. SW placed a call to Riaz, no answer, no identification on voicemail. SW left message for Riaz to give this worker a call back for update. Physician updated that pt can discharge to [facility] today. SW placed a call to Karissa with [facility] and updated her pt will discharge to [facility] today. Plan: [facility] today Carmela Masterson MENTAL HEALTH COUNSELOR, REFLEXOLOGIST
[2020-05-23 12:54] VITALS: BP 118/63; PULSE 91; RESP 16; TEMP 36.9; O2SAT 98
== END 2020-05-23 13:55 | disposition skilled nursing facility (03) | DRG 185 ==
LOC: ED 12:29 → MS3 14:04
PROVIDERS: Admitting Provider Student in an Organized Health Care Education/Training Program; Emergency Provider Emergency Medicine; PCP Student in an Organized Health Care Education/Training Program; Visit Provider Student in an Organized Health Care Education/Training Program
DX: S22.42XA Multiple fractures of ribs, left side, initial encounter for closed fracture (principal); V49.9XXA Car occupant (driver) (passenger) injured in unspecified traffic accident, initial encounter; Y93.9 Activity, unspecified; Y92.9 Unspecified place or not applicable; R53.81 Other malaise; I10 Essential (primary) hypertension; E78.5 Hyperlipidemia, unspecified; E11.9 Type 2 diabetes mellitus without complications; I25.10 Atherosclerotic heart disease of native coronary artery without angina pectoris; I49.3 Ventricular premature depolarization; Z95.0 Presence of cardiac pacemaker; Z95.1 Presence of aortocoronary bypass graft; Z79.4 Long term (current) use of insulin; Z79.899 Other long term (current) drug therapy; Z79.82 Long term (current) use of aspirin
CPT/HCPCS: 36415; 71260; 80048; 80053; 81002; 82962; 84484; 85025; 87077; 87086; 87088; 87186; 93005; 94762; 97110; 97162; 97166; 97530; 99251; 99285; J7030; Q9967; A4216; G0463; J2405

== ENCOUNTER 2020-05-23 14:16 | Inpatient (IN) | payer MEDICARE, OTHER, SELFPAY ==
[2020-05-21 14:35] VITALS: BMI 28.0
[2020-05-23 14:23] VITALS: BP 125/70; PULSE 91; RESP 18; TEMP 36.4; O2SAT 95; BMI 29.1
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
[2020-05-23 15:58] VITALS: O2SAT 95
[2020-05-23 16:50] LABS: Bedside Glucose 117 mg/dL (70-110)
[2020-05-23 18:12] VITALS: O2SAT 95
[2020-05-23 19:18] VITALS: BP 120/74; PULSE 100; RESP 16; TEMP 36.9; O2SAT 16
[2020-05-23] MEDS: Acetaminophen 325 MG Tablet 650 MG PO (20:53)
[2020-05-23] MEDS: Timolol 0.25% 5ML OPTH.BTL 1 DRP LEFT EYE (20:54)
[2020-05-23] MEDS: BRIMONIDINE 0.2% 5ML BOTTLE 1 DRP LEFT EYE (20:54)
[2020-05-23] MEDS: Isosorbide Mononitrate 60 MG Tablet PO (20:57)
[2020-05-23] MEDS: Atorvastatin Calcium 10 MG Tablet PO (20:57)
[2020-05-23] MEDS: Insulin Lispro 100 UNIT/ML INSULN.PEN SC (21:03)
[2020-05-23] MEDS: Menthol/Lanolin/Calamine/Znox 113 GM Tube 1 APPLIC TOPICAL (21:10)
[2020-05-23 21:11] LABS: Bedside Glucose 174 mg/dL (70-110)
[2020-05-23 22:00] VITALS: PULSE 96; RESP 17; O2SAT 95
[2020-05-24] MEDS: oxyCODONE 5 MG Tablet 10 MG PO ×2 (05:25→17:21)
[2020-05-24] MEDS: Acetaminophen 325 MG Tablet 650 MG PO (05:27)
[2020-05-24 06:46] LABS: Bedside Glucose 87 mg/dL (70-110)
[2020-05-24 07:01] VITALS: BP 142/71; PULSE 85; RESP 20; TEMP 36.2; O2SAT 95
[2020-05-24 07:25] VITALS: O2SAT 95
[2020-05-24] MEDS: Senna/Docusate Sodium 1 Tablet 2 TABLET PO ×2 (07:40→20:49)
[2020-05-24] MEDS: Aspirin 81 MG TAB.CHEW PO (07:40)
[2020-05-24] MEDS: Isosorbide Mononitrate 60 MG Tablet PO ×2 (07:40→20:49)
[2020-05-24] MEDS: Multivitamins,Therapeutic Tablet 1 TABLET PO (07:40)
[2020-05-24] MEDS: hydroCHLOROthiazide 25 MG Tablet PO (07:40)
[2020-05-24] MEDS: Losartan Potassium 100 MG Tablet PO (07:40)
[2020-05-24] MEDS: Ferrous Sulfate 325 MG Tablet PO (07:40)
[2020-05-24] MEDS: amLODIPine 10 MG Tablet PO (07:40)
[2020-05-24] MEDS: Timolol 0.25% 5ML OPTH.BTL 1 DRP LEFT EYE ×2 (08:21→20:48)
[2020-05-24] MEDS: Menthol/Lanolin/Calamine/Znox 113 GM Tube 1 APPLIC TOPICAL ×2 (08:23→20:49)
[2020-05-24] MEDS: BRIMONIDINE 0.2% 5ML BOTTLE 1 DRP LEFT EYE ×2 (08:26→20:48)
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
[2020-05-24 12:00] LABS: Bedside Glucose 125 mg/dL (70-110)
[2020-05-24] MEDS: Magnesium Hydroxide 30 ML UDC PO (12:19)
[2020-05-24 17:25] LABS: Bedside Glucose 107 mg/dL (70-110)
--- NOTE | 2020-05-24 18:11 | NURSING ---
Spoke with pts son Ritchie made aware of team on
[2020-05-24 19:16] VITALS: BP 132/70; PULSE 92; RESP 20; TEMP 36.9; O2SAT 96
[2020-05-24 20:30] VITALS: PULSE 92; RESP 16
--- NOTE | 2020-05-24 20:36 | NURSING ---
Straight cathed for 600ml & BS for 0ml remains. Pt tolerated well.
[2020-05-24] MEDS: Atorvastatin Calcium 10 MG Tablet PO (20:49)
[2020-05-24 20:51] LABS: Bedside Glucose 187 mg/dL (70-110)
[2020-05-24 21:26] LABS: Bedside Glucose 172 mg/dL (70-110)
[2020-05-25] MEDS: Acetaminophen 325 MG Tablet 650 MG PO ×2 (04:59→15:02)
[2020-05-25 06:30] LABS: Bedside Glucose 80 mg/dL (70-110)
[2020-05-25 07:25] LABS: Mucous, Urine 0 SEEN /hpf (<or=2+); Squamous Epithelial Cells - UA 0 SEEN /hpf (5-10)
[2020-05-25 07:32] VITALS: BP 148/78; PULSE 99; RESP 18; TEMP 36.7; O2SAT 93
[2020-05-25 07:59] VITALS: O2SAT 95
[2020-05-25 08:03] LABS: Color, Urine Yellow (Yellow); Glucose, Dipstick Normal (Normal); Ketone-Dipstick Negative (Negative); Leukocyte Esterase-Dipstick 100 /ul (Negative); Nitrite-Dipstick Negative (Negative); Occult Blood-Urine 10 /ul (Negative); Protein-Dipstick Negative (Negative); Specific Gravity, Urine 1.015 (1.002-1.030); Urine Bilirubin Dipstick Negative (Negative); Urine Clarity Cloudy (Clear); Urine Urobilinogen Normal (Normal)
[2020-05-25 08:05] VITALS: O2SAT 91
[2020-05-25 08:26] LABS: Bacteria 3+ /hpf (None Seen); Red Blood Cells-Urine 0-5 SEEN /hpf (0-5); White Blood Cells 25-50 SEEN /hpf (0-5)
[2020-05-25] MEDS: amLODIPine 10 MG Tablet PO (08:57)
[2020-05-25] MEDS: Multivitamins,Therapeutic Tablet 1 TABLET PO (08:57)
[2020-05-25] MEDS: Senna/Docusate Sodium 1 Tablet 2 TABLET PO ×2 (08:57→19:58)
[2020-05-25] MEDS: Aspirin 81 MG TAB.CHEW PO (08:57)
[2020-05-25] MEDS: Ferrous Sulfate 325 MG Tablet PO (08:57)
[2020-05-25] MEDS: Losartan Potassium 100 MG Tablet PO (08:57)
[2020-05-25] MEDS: Isosorbide Mononitrate 60 MG Tablet PO ×2 (08:58→19:57)
[2020-05-25] MEDS: hydroCHLOROthiazide 25 MG Tablet PO (08:58)
[2020-05-25] MEDS: Timolol 0.25% 5ML OPTH.BTL 1 DRP LEFT EYE ×2 (08:59→19:58)
[2020-05-25] MEDS: BRIMONIDINE 0.2% 5ML BOTTLE 1 DRP LEFT EYE ×2 (09:07→19:55)
[2020-05-25] MEDS: Menthol/Lanolin/Calamine/Znox 113 GM Tube 1 APPLIC TOPICAL ×2 (09:09→19:56)
[2020-05-25 09:13] VITALS: O2SAT 92
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
[2020-05-25 11:15] LABS: Bedside Glucose 241 mg/dL (70-110)
[2020-05-25] MEDS: Insulin Lispro 100 UNIT/ML INSULN.PEN SC (12:04)
[2020-05-25] MEDS: Amox/Clavulanate 500 MG Tablet PO ×2 (12:05→22:12)
--- NOTE | 2020-05-25 15:55 | NURSING ---
1140 voided 50ml bladder scan for 200ml. 1550 pt has not voided bladder scan for 295ml. will continue to monitor
[2020-05-25] MEDS: Glimepiride 1 MG Tablet PO (16:34)
[2020-05-25 16:40] LABS: Bedside Glucose 109 mg/dL (70-110)
--- NOTE | 2020-05-25 18:22 | NURSING ---
pt unable to void. bladder scan for 415ml. 16 welsh Abbasi cath placed p/order. 450ml clear yellow urine out on insertion. Pt tolerated well.
[2020-05-25 19:12] VITALS: BP 119/65; PULSE 91; RESP 16; TEMP 36.6; O2SAT 96
[2020-05-25] MEDS: Psyllium 1 PACKET PO (19:58)
[2020-05-25] MEDS: Atorvastatin Calcium 10 MG Tablet PO (19:58)
[2020-05-25 20:11] VITALS: PULSE 90; RESP 16; O2SAT 96
[2020-05-25 21:01] LABS: Bedside Glucose 113 mg/dL (70-110)
--- NOTE | 2020-05-26 00:40 | NURSING ---
DRY HOUSE WORKER assisted pt with BSC. Pt had nausea without vomiting. No BM results and pt repositioned into bed. Renee Liat provided. Pt stated that she is not a pill taker and thinks all the evening pills upset her stomach. Will continue to monitor.
[2020-05-26 06:30] LABS: Bedside Glucose 75 mg/dL (70-110)
--- NOTE | 2020-05-26 06:52 | NURSING ---
BS this a.m. was 75 and pt was asymptomatic. Cranberry juice was provided.
[2020-05-26] MEDS: Ferrous Sulfate 325 MG Tablet PO (08:12)
[2020-05-26] MEDS: Aspirin 81 MG TAB.CHEW PO (08:12)
[2020-05-26] MEDS: hydroCHLOROthiazide 25 MG Tablet PO (08:13)
[2020-05-26] MEDS: Multivitamins,Therapeutic Tablet 1 TABLET PO (08:13)
[2020-05-26] MEDS: BRIMONIDINE 0.2% 5ML BOTTLE 1 DRP LEFT EYE ×2 (08:13→19:51)
[2020-05-26] MEDS: Losartan Potassium 100 MG Tablet PO (08:13)
[2020-05-26] MEDS: Isosorbide Mononitrate 60 MG Tablet PO ×2 (08:14→19:52)
[2020-05-26] MEDS: amLODIPine 10 MG Tablet PO (08:14)
[2020-05-26] MEDS: Psyllium 1 PACKET PO (08:14)
[2020-05-26] MEDS: Timolol 0.25% 5ML OPTH.BTL 1 DRP LEFT EYE ×2 (08:14→19:51)
[2020-05-26] MEDS: Menthol/Lanolin/Calamine/Znox 113 GM Tube 1 APPLIC TOPICAL ×2 (08:16→19:53)
[2020-05-26] MEDS: Acetaminophen 325 MG Tablet 650 MG PO (08:18)
[2020-05-26 08:20] LABS: Bedside Glucose 208 mg/dL (70-110)
[2020-05-26 08:42] VITALS: BP 154/67; PULSE 94; RESP 18; TEMP 36.5; O2SAT 96
--- NOTE | 2020-05-26 10:53 | CASEMGMT ---
Social Work IDT met with patient and son via conference call for Team meeting. Discussed patient's progress in therapy and nursing. Pt having increased confusion. ST order evaled and currently recommending 24/7 supervision at DC. Pt has significantly poor safety awareness and cognitive impairment. However, pt is being treated for UTI. Son reports to pt forgetting to take meds prior. Explained Medicare approved 13 days with DC 06/05. Encouraged son and pt to begin discussing/brainstorming alternative DC plan - help at home or SNF. Provided son with contact information to contact SW to discuss options. Son agreeable. Will ReTeam next week. SW to continue to follow. Emerald Adler, TEMPERATURE REGULATOR PYROMETER MAINTENANCE OF WAY SUPERINTENDENT
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
[2020-05-26] MEDS: Amox/Clavulanate 500 MG Tablet PO ×2 (11:42→22:09)
[2020-05-26 12:01] LABS: Bedside Glucose 111 mg/dL (70-110)
[2020-05-26 12:47] LABS: Anion Gap 6 (5-15); BUN 40 mg/dL (7-18); BUN/Creat Ratio 27.6 RATIO (10-20); Calcium,Total 8.7 mg/dL (8.5-10.1); Chloride 105 mmol/L (98-107); Creatinine, Serum 1.45 mg/dL (0.55-1.02); EST Glomerular Filtration Rate 37 mL/min (>60); Est Glom Filt Rate - Afr Amer 45 mL/min (>60); Estimated Creatinine Clearance 24.13 ml/min; Glucose 98 mg/dL (74-106); Potassium 4.4 mmol/L (3.5-5.1); Sodium Level 138 mmol/L (136-145)
[2020-05-26] MEDS: Acetaminophen 500 MG Tablet 1000 MG PO ×2 (13:46→21:29)
[2020-05-26] MEDS: Calcium Carbonate 500 MG Tablet PO ×2 (13:46→15:57)
[2020-05-26] MEDS: Glimepiride 1 MG Tablet PO (15:57)
[2020-05-26 16:55] LABS: Bedside Glucose 137 mg/dL (70-110)
[2020-05-26 19:49] VITALS: BP 157/78; PULSE 88; RESP 18; TEMP 36.5; O2SAT 97
[2020-05-26] MEDS: Atorvastatin Calcium 10 MG Tablet PO (19:52)
[2020-05-26 21:36] LABS: Bedside Glucose 147 mg/dL (70-110)
[2020-05-27] MEDS: Acetaminophen 500 MG Tablet 1000 MG PO ×3 (06:20→22:31)
[2020-05-27 07:00] LABS: Bedside Glucose 82 mg/dL (70-110)
[2020-05-27 07:40] VITALS: BP 153/73; PULSE 96; RESP 18; TEMP 36.2; O2SAT 97
[2020-05-27] MEDS: Aspirin 81 MG TAB.CHEW PO (08:19)
[2020-05-27] MEDS: Multivitamins,Therapeutic Tablet 1 TABLET PO (08:19)
[2020-05-27] MEDS: Calcium Carbonate 500 MG Tablet PO ×3 (08:19→16:47)
[2020-05-27] MEDS: Timolol 0.25% 5ML OPTH.BTL 1 DRP LEFT EYE ×2 (08:19→20:27)
[2020-05-27] MEDS: Ferrous Sulfate 325 MG Tablet PO (08:19)
[2020-05-27] MEDS: BRIMONIDINE 0.2% 5ML BOTTLE 1 DRP LEFT EYE ×2 (08:19→20:25)
[2020-05-27] MEDS: amLODIPine 10 MG Tablet PO (08:20)
[2020-05-27] MEDS: Losartan Potassium 100 MG Tablet PO (08:20)
[2020-05-27] MEDS: hydroCHLOROthiazide 25 MG Tablet PO (08:20)
[2020-05-27] MEDS: Isosorbide Mononitrate 60 MG Tablet PO ×2 (08:20→20:27)
[2020-05-27] MEDS: Cholecalciferol (VIT D3) 25 MCG TABLET (1,000 UNITS) 50 MCG PO (08:21)
--- NOTE | 2020-05-27 10:57 | PCM.PN.BLA ---
Progress Note Continues to be afebrile VSS - systolic BP has been a little high - will continue to monitor. Diastolic is Within goal. oral intake is still poor BS record reviewed....BS's are coming under good control - no hypoglycemia Urine grew a pansensitive E. Coli. will continue the Augmentin for a total of 7 days. Encourage increased water intake STROKE Vital Signs/Narrative: Vital Signs Temp Pulse Resp BP Pulse Ox 05/27/20 07:40 97.2 F L 96 18 153/73 H 97 Inpatient E&M: [id number] Subs Hosp L1
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
[2020-05-27] MEDS: Amox/Clavulanate 500 MG Tablet PO ×2 (11:25→22:31)
[2020-05-27 12:25] LABS: Bedside Glucose 85 mg/dL (70-110)
[2020-05-27] MEDS: Glimepiride 1 MG Tablet PO (16:47)
[2020-05-27 18:01] LABS: Bedside Glucose 87 mg/dL (70-110)
[2020-05-27 19:27] VITALS: BP 146/74; PULSE 98; RESP 16; TEMP 36.6; O2SAT 95
[2020-05-27] MEDS: Menthol/Lanolin/Calamine/Znox 113 GM Tube 1 APPLIC TOPICAL (20:26)
[2020-05-27] MEDS: Atorvastatin Calcium 10 MG Tablet PO (20:27)
[2020-05-27 22:40] LABS: Bedside Glucose 118 mg/dL (70-110)
--- NOTE | 2020-05-28 04:30 | NURSING ---
read and agree with rail car driver assessment. llrn
[2020-05-28] MEDS: Acetaminophen 500 MG Tablet 1000 MG PO ×3 (06:35→21:56)
[2020-05-28 07:06] LABS: Bedside Glucose 53 mg/dL (70-110)
[2020-05-28 07:12] VITALS: O2SAT 94
--- NOTE | 2020-05-28 07:35 | NURSING ---
0658 Blood sugar (53). Gave OJ and jennifer crackers. Pt asymptomatic. 0735 Re-checked blood sugar (102). OT currently working with Pt. Pt remains asymptomatic. RN aware.
[2020-05-28 07:40] LABS: Bedside Glucose 102 mg/dL (70-110)
[2020-05-28 08:21] VITALS: BP 127/66; PULSE 89; RESP 16; TEMP 36.6; O2SAT 93
[2020-05-28] MEDS: Cholecalciferol (VIT D3) 25 MCG TABLET (1,000 UNITS) 50 MCG PO (08:59)
[2020-05-28] MEDS: Calcium Carbonate 500 MG Tablet PO ×3 (08:59→16:57)
[2020-05-28] MEDS: Aspirin 81 MG TAB.CHEW PO (08:59)
[2020-05-28] MEDS: Isosorbide Mononitrate 60 MG Tablet PO ×2 (08:59→21:55)
[2020-05-28] MEDS: Ferrous Sulfate 325 MG Tablet PO (08:59)
[2020-05-28] MEDS: hydroCHLOROthiazide 25 MG Tablet PO (08:59)
[2020-05-28] MEDS: amLODIPine 10 MG Tablet PO (09:01)
[2020-05-28] MEDS: Multivitamins,Therapeutic Tablet 1 TABLET PO (09:01)
[2020-05-28] MEDS: Losartan Potassium 100 MG Tablet PO (09:01)
[2020-05-28] MEDS: BRIMONIDINE 0.2% 5ML BOTTLE 1 DRP LEFT EYE ×2 (09:02→22:07)
[2020-05-28] MEDS: Timolol 0.25% 5ML OPTH.BTL 1 DRP LEFT EYE ×2 (11:12→21:44)
[2020-05-28 11:46] LABS: Bedside Glucose 172 mg/dL (70-110)
[2020-05-28] MEDS: Amox/Clavulanate 500 MG Tablet PO ×2 (11:58→21:56)
[2020-05-28] MEDS: Insulin Lispro 100 UNIT/ML INSULN.PEN SC (11:59)
[2020-05-28] MEDS: Menthol/Lanolin/Calamine/Znox 113 GM Tube 1 APPLIC TOPICAL (14:49)
[2020-05-28 16:51] LABS: Bedside Glucose 80 mg/dL (70-110)
[2020-05-28] MEDS: Glimepiride 1 MG Tablet PO (16:57)
[2020-05-28 19:34] VITALS: BP 102/63; PULSE 98; RESP 16; TEMP 36.7; O2SAT 96
[2020-05-28] MEDS: Atorvastatin Calcium 10 MG Tablet PO (21:55)
[2020-05-28 22:05] LABS: Bedside Glucose 64 mg/dL (70-110)
[2020-05-28 22:15] LABS: Bedside Glucose 72 mg/dL (70-110)
--- NOTE | 2020-05-28 22:39 | NURSING ---
2149 Checked Pt's blood sugar (64). Pt alert and oriented x3 and asymptomatic at this time. Drank a carton of OJ and ate two jennifer crackers with peanut butter. Rechecked blood sugar at 2206 (72). Then gave vanilla ice cream. Will continue to monitor and re-check blood sugar during night. RN aware.
[2020-05-29 01:26] LABS: Bedside Glucose 108 mg/dL (70-110)
--- NOTE | 2020-05-29 04:10 | NURSING ---
REVIEWED AND AGREE WITH PRIVACY OFFICER'S HANDOFF AND FUNCTIONAL ASSESSMENT CHARTING.
[2020-05-29 04:51] LABS: Bedside Glucose 59 mg/dL (70-110)
[2020-05-29] MEDS: Acetaminophen 500 MG Tablet 1000 MG PO ×3 (05:08→21:58)
[2020-05-29 06:44] VITALS: O2SAT 93
[2020-05-29 07:06] LABS: Bedside Glucose 110 mg/dL (70-110)
[2020-05-29 07:06] LABS: Bedside Glucose 93 mg/dL (70-110)
[2020-05-29 08:21] VITALS: BP 145/76; PULSE 90; RESP 18; TEMP 36.6; O2SAT 95
[2020-05-29] MEDS: BRIMONIDINE 0.2% 5ML BOTTLE 1 DRP LEFT EYE ×2 (08:56→21:57)
[2020-05-29] MEDS: hydroCHLOROthiazide 25 MG Tablet PO (08:57)
[2020-05-29] MEDS: Cholecalciferol (VIT D3) 25 MCG TABLET (1,000 UNITS) 50 MCG PO (08:57)
[2020-05-29] MEDS: Isosorbide Mononitrate 60 MG Tablet PO ×2 (08:57→21:57)
[2020-05-29] MEDS: Calcium Carbonate 500 MG Tablet PO ×3 (08:57→16:47)
[2020-05-29] MEDS: Multivitamins,Therapeutic Tablet 1 TABLET PO (08:57)
[2020-05-29] MEDS: Aspirin 81 MG TAB.CHEW PO (08:57)
[2020-05-29] MEDS: Ferrous Sulfate 325 MG Tablet PO (09:00)
[2020-05-29] MEDS: amLODIPine 10 MG Tablet PO (09:00)
[2020-05-29] MEDS: Losartan Potassium 100 MG Tablet PO (09:00)
[2020-05-29] MEDS: Timolol 0.25% 5ML OPTH.BTL 1 DRP LEFT EYE ×2 (09:04→21:40)
[2020-05-29 09:25] LABS: Bedside Glucose 181 mg/dL (70-110)
[2020-05-29] MEDS: Amox/Clavulanate 500 MG Tablet PO ×2 (11:22→21:59)
[2020-05-29 11:30] LABS: Bedside Glucose 86 mg/dL (70-110)
[2020-05-29] MEDS: Glimepiride 1 MG Tablet PO (12:46)
[2020-05-29 16:31] LABS: Bedside Glucose 118 mg/dL (70-110)
[2020-05-29 19:02] VITALS: BP 145/72; PULSE 89; RESP 18; TEMP 37.1; O2SAT 96
[2020-05-29] MEDS: Atorvastatin Calcium 10 MG Tablet PO (21:58)
[2020-05-29 22:16] LABS: Bedside Glucose 95 mg/dL (70-110)
[2020-05-30 02:25] LABS: Bedside Glucose 125 mg/dL (70-110)
--- NOTE | 2020-05-30 06:21 | NURSING ---
NOVA GLUCOSE MONITOR IS 67. PT IS ASYMPTOMATIC. ORANGE JUICE/SUGAR PACKET GIVEN.
[2020-05-30] MEDS: Acetaminophen 500 MG Tablet 1000 MG PO ×3 (06:23→21:47)
[2020-05-30 06:31] LABS: Bedside Glucose 67 mg/dL (70-110)
[2020-05-30 06:55] LABS: Bedside Glucose 92 mg/dL (70-110)
[2020-05-30 07:13] VITALS: O2SAT 95
[2020-05-30 07:54] VITALS: BP 143/74; PULSE 94; RESP 16; TEMP 36.7; O2SAT 98
[2020-05-30] MEDS: Glimepiride 1 MG Tablet PO (08:05)
[2020-05-30] MEDS: Ferrous Sulfate 325 MG Tablet PO (08:05)
[2020-05-30] MEDS: Calcium Carbonate 500 MG Tablet PO ×3 (08:05→16:47)
[2020-05-30] MEDS: Psyllium 1 PACKET PO (08:05)
[2020-05-30] MEDS: Aspirin 81 MG TAB.CHEW PO (08:05)
[2020-05-30] MEDS: Multivitamins,Therapeutic Tablet 1 TABLET PO (08:05)
[2020-05-30] MEDS: BRIMONIDINE 0.2% 5ML BOTTLE 1 DRP LEFT EYE ×2 (08:06→22:00)
[2020-05-30] MEDS: Losartan Potassium 100 MG Tablet PO (08:06)
[2020-05-30] MEDS: hydroCHLOROthiazide 25 MG Tablet PO (08:06)
[2020-05-30] MEDS: Isosorbide Mononitrate 60 MG Tablet PO ×2 (08:06→21:46)
[2020-05-30] MEDS: Timolol 0.25% 5ML OPTH.BTL 1 DRP LEFT EYE ×2 (08:07→21:44)
[2020-05-30] MEDS: amLODIPine 10 MG Tablet PO (08:07)
[2020-05-30] MEDS: Cholecalciferol (VIT D3) 25 MCG TABLET (1,000 UNITS) 50 MCG PO (08:08)
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
[2020-05-30] MEDS: Amox/Clavulanate 500 MG Tablet PO ×2 (11:16→22:00)
[2020-05-30 11:35] LABS: Bedside Glucose 115 mg/dL (70-110)
[2020-05-30 16:56] LABS: Bedside Glucose 96 mg/dL (70-110)
[2020-05-30 19:28] VITALS: BP 134/63; PULSE 94; RESP 16; TEMP 36.8; O2SAT 97
[2020-05-30] MEDS: Atorvastatin Calcium 10 MG Tablet PO (21:47)
[2020-05-30 22:05] LABS: Bedside Glucose 149 mg/dL (70-110)
--- NOTE | 2020-05-31 02:11 | NURSING ---
Addendum entered by Cathleen Archer 05/31/20 02:13: Reviewed and agree with DISPENSING LEAD documentation and charting. Original Note: Agree with DISPENSING LEAD documentation and charting.
[2020-05-31] MEDS: Acetaminophen 500 MG Tablet 1000 MG PO ×3 (05:02→22:29)
[2020-05-31 07:00] LABS: Bedside Glucose 91 mg/dL (70-110)
[2020-05-31 07:22] VITALS: O2SAT 93
[2020-05-31] MEDS: Cholecalciferol (VIT D3) 25 MCG TABLET (1,000 UNITS) 50 MCG PO (07:29)
[2020-05-31] MEDS: Aspirin 81 MG TAB.CHEW PO (07:29)
[2020-05-31] MEDS: Isosorbide Mononitrate 60 MG Tablet PO ×2 (07:29→20:06)
[2020-05-31] MEDS: Ferrous Sulfate 325 MG Tablet PO (07:29)
[2020-05-31] MEDS: amLODIPine 10 MG Tablet PO (07:29)
[2020-05-31] MEDS: Multivitamins,Therapeutic Tablet 1 TABLET PO (07:29)
[2020-05-31] MEDS: Senna/Docusate Sodium 1 Tablet 2 TABLET PO ×2 (07:30→20:07)
[2020-05-31] MEDS: hydroCHLOROthiazide 25 MG Tablet PO (07:30)
[2020-05-31] MEDS: Calcium Carbonate 500 MG Tablet PO ×3 (07:30→16:43)
[2020-05-31] MEDS: Glimepiride 1 MG Tablet PO (07:30)
[2020-05-31] MEDS: Losartan Potassium 100 MG Tablet PO (07:30)
[2020-05-31] MEDS: Timolol 0.25% 5ML OPTH.BTL 1 DRP LEFT EYE ×2 (07:31→20:07)
[2020-05-31] MEDS: Menthol/Lanolin/Calamine/Znox 113 GM Tube 1 APPLIC TOPICAL ×2 (07:32→20:06)
[2020-05-31] MEDS: BRIMONIDINE 0.2% 5ML BOTTLE 1 DRP LEFT EYE ×2 (07:35→20:05)
[2020-05-31] MEDS: Psyllium 1 PACKET PO ×2 (07:39→20:07)
[2020-05-31 07:42] VITALS: BP 142/60; PULSE 94; RESP 16; TEMP 36.6; O2SAT 97
--- NOTE | 2020-05-31 11:05 | NURSING ---
Blood sugar check 46-4oz OJ given. Recheck 64-Lunch tray given. Recheck 164. Dr Hernandez aware.
[2020-05-31 11:16] LABS: Bedside Glucose 46 mg/dL (70-110)
[2020-05-31 11:26] LABS: Bedside Glucose 64 mg/dL (70-110)
[2020-05-31] MEDS: Amox/Clavulanate 500 MG Tablet PO ×2 (12:02→22:29)
[2020-05-31 12:36] LABS: Bedside Glucose 164 mg/dL (70-110)
[2020-05-31 16:50] LABS: Bedside Glucose 72 mg/dL (70-110)
[2020-05-31 19:11] VITALS: BP 145/68; PULSE 91; RESP 16; TEMP 36.6; O2SAT 96
[2020-05-31] MEDS: Atorvastatin Calcium 10 MG Tablet PO (20:07)
[2020-05-31 21:11] LABS: Bedside Glucose 127 mg/dL (70-110)
[2020-06-01] MEDS: Acetaminophen 500 MG Tablet 1000 MG PO ×3 (05:01→21:42)
[2020-06-01 06:15] LABS: Bedside Glucose 101 mg/dL (70-110)
[2020-06-01] MEDS: Timolol 0.25% 5ML OPTH.BTL 1 DRP LEFT EYE ×2 (09:14→21:42)
[2020-06-01] MEDS: Multivitamins,Therapeutic Tablet 1 TABLET PO (09:18)
[2020-06-01] MEDS: Calcium Carbonate 500 MG Tablet PO ×3 (09:18→16:15)
[2020-06-01] MEDS: Aspirin 81 MG TAB.CHEW PO (09:18)
[2020-06-01] MEDS: hydroCHLOROthiazide 25 MG Tablet PO (09:19)
[2020-06-01] MEDS: Ferrous Sulfate 325 MG Tablet PO (09:19)
[2020-06-01] MEDS: Losartan Potassium 100 MG Tablet PO (09:19)
[2020-06-01] MEDS: Cholecalciferol (VIT D3) 25 MCG TABLET (1,000 UNITS) 50 MCG PO (09:19)
[2020-06-01] MEDS: Senna/Docusate Sodium 1 Tablet 2 TABLET PO (09:19)
[2020-06-01] MEDS: Isosorbide Mononitrate 60 MG Tablet PO ×2 (09:19→21:41)
[2020-06-01] MEDS: amLODIPine 10 MG Tablet PO (09:19)
[2020-06-01] MEDS: BRIMONIDINE 0.2% 5ML BOTTLE 1 DRP LEFT EYE ×2 (09:20→21:41)
[2020-06-01] MEDS: Menthol/Lanolin/Calamine/Znox 113 GM Tube 1 APPLIC TOPICAL ×2 (09:20→21:41)
[2020-06-01 09:45] VITALS: BP 153/81; PULSE 89; RESP 16; TEMP 36.4; O2SAT 97
[2020-06-01] MEDS: Glimepiride 1 MG Tablet PO (11:05)
[2020-06-01 11:15] LABS: Bedside Glucose 103 mg/dL (70-110)
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
[2020-06-01 16:41] LABS: Bedside Glucose 114 mg/dL (70-110)
[2020-06-01 19:45] VITALS: BP 126/65; PULSE 91; RESP 17; TEMP 36.4; O2SAT 99
[2020-06-01] MEDS: Atorvastatin Calcium 10 MG Tablet PO (21:41)
[2020-06-01 22:36] LABS: Bedside Glucose 79 mg/dL (70-110)
[2020-06-02] MEDS: Acetaminophen 500 MG Tablet 1000 MG PO ×3 (05:22→21:09)
[2020-06-02 07:15] LABS: Bedside Glucose 89 mg/dL (70-110)
[2020-06-02] MEDS: Aspirin 81 MG TAB.CHEW PO (07:58)
[2020-06-02] MEDS: Ferrous Sulfate 325 MG Tablet PO (07:58)
[2020-06-02] MEDS: Calcium Carbonate 500 MG Tablet PO ×3 (07:58→18:46)
[2020-06-02] MEDS: Multivitamins,Therapeutic Tablet 1 TABLET PO (07:58)
[2020-06-02] MEDS: hydroCHLOROthiazide 25 MG Tablet PO (07:59)
[2020-06-02] MEDS: Losartan Potassium 100 MG Tablet PO (07:59)
[2020-06-02] MEDS: amLODIPine 10 MG Tablet PO (07:59)
[2020-06-02] MEDS: Timolol 0.25% 5ML OPTH.BTL 1 DRP LEFT EYE ×2 (07:59→20:02)
[2020-06-02] MEDS: BRIMONIDINE 0.2% 5ML BOTTLE 1 DRP LEFT EYE ×2 (07:59→20:02)
[2020-06-02] MEDS: Isosorbide Mononitrate 60 MG Tablet PO ×2 (07:59→20:02)
[2020-06-02] MEDS: Cholecalciferol (VIT D3) 25 MCG TABLET (1,000 UNITS) 50 MCG PO (08:00)
[2020-06-02] MEDS: Menthol/Lanolin/Calamine/Znox 113 GM Tube 1 APPLIC TOPICAL ×2 (08:03→21:41)
[2020-06-02 08:38] VITALS: BP 146/72; PULSE 96; RESP 16; TEMP 36.6; O2SAT 97
--- NOTE | 2020-06-02 10:09 | CASEMGMT ---
Addendum entered by Emerald Adler 06/03/20 08:51: Son left message with SW that he prefers pt have HHC vs outpatient as that was more successful for her previously and prefers [facility]. Cancelled [facility] referral and referred to [facility] PT. Original Note: Social Work IDT met with patient, son and DIL via conference call for Team meeting. Discussed patient's progress in therapy and nursing. Nursing reports UTI has cleared and cognition improving. However, still recommending 24/7 supervision at [place]. A friend is arranged to stay with pt at home at [place]. Pt agreeable to outpatient therapy and prefers [facility]. Referral made for PT. Explained CCN - pt agreeable to referral. Referral made. No DME needs. Son prefers DC /. Son to transport. Plan: DC home with 24/7 supervision and family support, [facility] PT, CCN Emerald Adler, FELT HAT STEAMER TEAM ASSEMBLY LINE MACHINE OPERATOR
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
[2020-06-02 12:01] LABS: Bedside Glucose 75 mg/dL (70-110)
[2020-06-02] MEDS: Glimepiride 1 MG Tablet 0.5 MG PO (12:16)
[2020-06-02] MEDS: Lisinopril 10 MG Tablet PO (13:14)
[2020-06-02 13:27] VITALS: BP 121/69; BP 124/66; BP 137/60; PULSE 103; PULSE 111; PULSE 99
[2020-06-02] MEDS: 0.9% Normal Saline 1,000 ML 75 ML IV (13:55)
[2020-06-02 17:16] LABS: Bedside Glucose 132 mg/dL (70-110)
[2020-06-02 19:30] VITALS: BP 119/68; PULSE 97; RESP 18; TEMP 37.1; O2SAT 95
[2020-06-02] MEDS: Atorvastatin Calcium 10 MG Tablet PO (20:02)
[2020-06-02 21:51] LABS: Bedside Glucose 164 mg/dL (70-110)
[2020-06-03] MEDS: 0.9% Normal Saline 1,000 ML 75 ML IV (04:01)
[2020-06-03] MEDS: Acetaminophen 500 MG Tablet 1000 MG PO ×3 (05:33→22:52)
[2020-06-03 06:00] VITALS: BP 150/71; BP 151/78; BP 164/78; PULSE 81; PULSE 88; PULSE 90
[2020-06-03 07:10] LABS: Bedside Glucose 75 mg/dL (70-110)
[2020-06-03] MEDS: Isosorbide Mononitrate 60 MG Tablet PO ×2 (08:00→22:51)
[2020-06-03] MEDS: BRIMONIDINE 0.2% 5ML BOTTLE 1 DRP LEFT EYE ×2 (08:00→22:50)
[2020-06-03] MEDS: Calcium Carbonate 500 MG Tablet PO ×3 (08:00→16:46)
[2020-06-03] MEDS: Aspirin 81 MG TAB.CHEW PO (08:00)
[2020-06-03] MEDS: Multivitamins,Therapeutic Tablet 1 TABLET PO (08:00)
[2020-06-03] MEDS: Timolol 0.25% 5ML OPTH.BTL 1 DRP LEFT EYE ×2 (08:00→22:51)
[2020-06-03] MEDS: Ferrous Sulfate 325 MG Tablet PO (08:00)
[2020-06-03] MEDS: Cholecalciferol (VIT D3) 25 MCG TABLET (1,000 UNITS) 50 MCG PO (08:01)
[2020-06-03] MEDS: amLODIPine 10 MG Tablet PO (08:01)
[2020-06-03] MEDS: Lisinopril 10 MG Tablet PO (08:03)
[2020-06-03] MEDS: Menthol/Lanolin/Calamine/Znox 113 GM Tube 1 APPLIC TOPICAL ×2 (08:06→22:51)
[2020-06-03 08:16] VITALS: BP 150/71; PULSE 81; RESP 16; TEMP 36.6; O2SAT 96
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
[2020-06-03 11:16] LABS: Bedside Glucose 102 mg/dL (70-110)
[2020-06-03] MEDS: Glimepiride 1 MG Tablet 0.5 MG PO (11:56)
[2020-06-03 18:05] LABS: Bedside Glucose 89 mg/dL (70-110)
[2020-06-03 21:15] LABS: Bedside Glucose 105 mg/dL (70-110)
[2020-06-03 22:00] VITALS: BP 152/76; PULSE 95; RESP 16; TEMP 36.9; O2SAT 99
[2020-06-03] MEDS: Atorvastatin Calcium 10 MG Tablet PO (22:51)
[2020-06-04 06:36] LABS: Hematocrit 34.7 % (37-47); Hemoglobin 10.9 g/dL (12.0-15.0); Mean Corp Hgb Conc 31.4 g/dL (32-36); Mean Corpuscular Hgb 31.2 pg (27.0-32.0); Mean Corpuscular Volume 99.4 fL (81-99); Mean Platelet Vol. 9.9 fl (6.2-12.0); Platelet Count 393 K/mm3 (150-450); RBC Distribution Width SD 50.5 fl (35.1-43.9); Red Blood Count 3.49 M/mm3 (4.2-5.4); White Blood Count 8.8 K/mm3 (4.4-11.0)
[2020-06-04 06:40] VITALS: BP 132/61; BP 134/75; BP 147/75; PULSE 91; PULSE 93; PULSE 97
[2020-06-04] MEDS: Acetaminophen 500 MG Tablet 1000 MG PO ×3 (06:54→21:41)
[2020-06-04 07:04] LABS: Anion Gap 4 (5-15); BUN 35 mg/dL (7-18); BUN/Creat Ratio 27.8 RATIO (10-20); Chloride 112 mmol/L (98-107); Creatinine, Serum 1.26 mg/dL (0.55-1.02); EST Glomerular Filtration Rate 44 mL/min (>60); Est Glom Filt Rate - Afr Amer 53 mL/min (>60); Estimated Creatinine Clearance 27.77 ml/min; Glucose 87 mg/dL (74-106); Potassium 4.8 mmol/L (3.5-5.1); Sodium Level 142 mmol/L (136-145)
[2020-06-04 07:11] LABS: Bedside Glucose 89 mg/dL (70-110)
[2020-06-04 08:03] VITALS: BP 139/86; PULSE 86; RESP 18; TEMP 36.6; O2SAT 94
[2020-06-04] MEDS: Calcium Carbonate 500 MG Tablet PO ×3 (08:25→16:58)
[2020-06-04] MEDS: Ferrous Sulfate 325 MG Tablet PO (08:25)
[2020-06-04] MEDS: Aspirin 81 MG TAB.CHEW PO (08:25)
[2020-06-04] MEDS: Lisinopril 10 MG Tablet PO (08:25)
[2020-06-04] MEDS: Isosorbide Mononitrate 60 MG Tablet PO ×2 (08:25→21:42)
[2020-06-04] MEDS: Multivitamins,Therapeutic Tablet 1 TABLET PO (08:25)
[2020-06-04] MEDS: Cholecalciferol (VIT D3) 25 MCG TABLET (1,000 UNITS) 50 MCG PO (08:25)
[2020-06-04] MEDS: amLODIPine 10 MG Tablet PO (08:29)
[2020-06-04] MEDS: Timolol 0.25% 5ML OPTH.BTL 1 DRP LEFT EYE ×2 (08:30→21:41)
[2020-06-04] MEDS: BRIMONIDINE 0.2% 5ML BOTTLE 1 DRP LEFT EYE ×2 (08:31→21:44)
[2020-06-04] MEDS: Menthol/Lanolin/Calamine/Znox 113 GM Tube 1 APPLIC TOPICAL ×2 (08:36→21:43)
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
[2020-06-04 11:20] LABS: Bedside Glucose 84 mg/dL (70-110)
[2020-06-04] MEDS: Glimepiride 1 MG Tablet 0.5 MG PO (11:35)
[2020-06-04 16:36] LABS: Bedside Glucose 85 mg/dL (70-110)
[2020-06-04 19:29] VITALS: BP 137/69; PULSE 87; RESP 16; TEMP 36.8; O2SAT 97
[2020-06-04 19:39] VITALS: PULSE 87; RESP 16; O2SAT 97
[2020-06-04 21:25] LABS: Bedside Glucose 146 mg/dL (70-110)
[2020-06-04] MEDS: Atorvastatin Calcium 10 MG Tablet PO (21:41)
[2020-06-05 06:00] VITALS: BP 135/74; BP 149/72; BP 158/81; PULSE 104; PULSE 108; PULSE 97
[2020-06-05] MEDS: Acetaminophen 500 MG Tablet 1000 MG PO ×2 (06:38→13:10)
[2020-06-05 06:56] LABS: Bedside Glucose 93 mg/dL (70-110)
[2020-06-05 07:41] VITALS: BP 145/78; PULSE 95; RESP 16; TEMP 36.6; O2SAT 94
[2020-06-05] MEDS: amLODIPine 10 MG Tablet PO (08:24)
[2020-06-05] MEDS: Aspirin 81 MG TAB.CHEW PO (08:24)
[2020-06-05] MEDS: Lisinopril 10 MG Tablet PO (08:24)
[2020-06-05] MEDS: Isosorbide Mononitrate 60 MG Tablet PO (08:24)
[2020-06-05] MEDS: Ferrous Sulfate 325 MG Tablet PO (08:24)
[2020-06-05] MEDS: Cholecalciferol (VIT D3) 25 MCG TABLET (1,000 UNITS) 50 MCG PO (08:24)
[2020-06-05] MEDS: Timolol 0.25% 5ML OPTH.BTL 1 DRP LEFT EYE (08:26)
[2020-06-05] MEDS: Calcium Carbonate 500 MG Tablet PO ×2 (08:27→12:00)
[2020-06-05] MEDS: Multivitamins,Therapeutic Tablet 1 TABLET PO (08:28)
[2020-06-05] MEDS: BRIMONIDINE 0.2% 5ML BOTTLE 1 DRP LEFT EYE (08:32)
[2020-06-05 11:21] LABS: Bedside Glucose 76 mg/dL (70-110)
[2020-06-05] MEDS: Glimepiride 1 MG Tablet 0.5 MG PO (12:00)
[2020-06-05 13:55] VITALS: BP 145/78; PULSE 95; RESP 16; TEMP 36.6; O2SAT 94
--- NOTE | 2020-06-05 13:55 | NURSING ---
Patient and son verbalized understanding to discharge instructions given.
== END 2020-06-05 13:55 | disposition home health service (06) | DRG 560 ==
PROVIDERS: Admitting Provider Internal Medicine; PCP Student in an Organized Health Care Education/Training Program; Visit Provider Internal Medicine
DX: S22.42XD Multiple fractures of ribs, left side, subsequent encounter for fracture with routine healing (principal); N30.00 Acute cystitis without hematuria; S06.0X9D Concussion with loss of consciousness of unspecified duration, subsequent encounter; V49.9XXD Car occupant (driver) (passenger) injured in unspecified traffic accident, subsequent encounter; E78.2 Mixed hyperlipidemia; E11.319 Type 2 diabetes mellitus with unspecified diabetic retinopathy without macular edema; H40.9 Unspecified glaucoma; K44.9 Diaphragmatic hernia without obstruction or gangrene; B35.1 Tinea unguium; K59.03 Drug induced constipation; T45.4X5A Adverse effect of iron and its compounds, initial encounter; E11.22 Type 2 diabetes mellitus with diabetic chronic kidney disease; I25.10 Atherosclerotic heart disease of native coronary artery without angina pectoris; I12.9 Hypertensive chronic kidney disease with stage 1 through stage 4 chronic kidney disease, or unspecified chronic kidney disease; N18.32 Chronic kidney disease, stage 3b; D53.9 Nutritional anemia, unspecified; Z95.0 Presence of cardiac pacemaker; Z95.1 Presence of aortocoronary bypass graft; Z79.899 Other long term (current) drug therapy; Z79.82 Long term (current) use of aspirin; Z79.4 Long term (current) use of insulin; B96.20 Unspecified Escherichia coli [E. coli] as the cause of diseases classified elsewhere
CPT/HCPCS: 36415; 80048; 81001; 82962; 85027; 87086; 87088; 87186; 92507; 92523; 97110; 97116; 97161; 97166; 97530; 97535; 97802; 97803; 99251; J7030; G0463

== ENCOUNTER → 2020-05-31 11:27 | Outpatient (CLI) | payer MEDICARE, OTHER, SELFPAY ==
[2020-05-23 14:23] VITALS: BMI 29.1
[2020-05-31] MEDS: COVID-19 VACC, MRNA(PFIZER)/PF 30 MCG/0.3 ML SYRINGE IM (13:06)
== END ==
LOC: IMMUN 11:30
PROVIDERS: PCP Student in an Organized Health Care Education/Training Program; Visit Provider Family Medicine
DX: Z23 Encounter for immunization (principal)
CPT/HCPCS: 0002A; 91300

== ENCOUNTER → 2020-09-21 08:46 | Outpatient (CLI) | payer MEDICARE, OTHER, SELFPAY ==
[2020-07-25 10:30] VITALS: BMI 27.6
[2020-09-21 09:31] LABS: Hematocrit 39.2 % (37-47); Hemoglobin 12.9 g/dL (12.0-15.0); Mean Corp Hgb Conc 32.9 g/dL (32-36); Mean Corpuscular Hgb 31.9 pg (27.0-32.0); Platelet Count 248 K/mm3 (150-450); RBC Distribution Width CV 12.6 % (11.6-14.6); RBC Distribution Width SD 45.1 fl (35.1-43.9); Red Blood Count 4.04 M/mm3 (4.2-5.4); White Blood Count 9.7 K/mm3 (4.4-11.0)
[2020-09-21 09:57] LABS: PTHIN 65.5 pg/mL (18.4-80.1)
[2020-09-21 10:01] LABS: Vitamin D,25 Hydroxy 44.8 ng/mL
[2020-09-21 10:05] LABS: AST(SGOT) 19 U/L (15-37); Alanine Aminotransfer ALT/SGPT 36 U/L (13-56); Albumin, Serum 3.7 g/dL (3.2-5.0); Alkaline Phosphatase 128 U/L (45-117); Anion Gap 4 (5-15); BUN 27 mg/dL (7-18); BUN/Creat Ratio 20.3 RATIO (10-20); Bilirubin, Direct 0.12 mg/dL (0.00-0.30); Calcium,Total 8.9 mg/dL (8.5-10.1); Chloride 107 mmol/L (98-107); Cholesterol 183 mg/dL (200); Creatinine, Serum 1.33 mg/dL (0.55-1.02); EST Glomerular Filtration Rate 41 mL/min (>60); Est Glom Filt Rate - Afr Amer 50 mL/min (>60); Ferritin 41 ng/mL (8-252); Globulin 4.2 g/dL (2.2-4.2); Glucose 94 mg/dL (74-106); High Density Lipoprotein 65 mg/dL; Phosphorus 4.2 mg/dL (2.5-4.9); Potassium 4.4 mmol/L (3.5-5.1); Protein, Total 7.9 g/dL (6.4-8.2); Sodium Level 137 mmol/L (136-145); Thyroid Stim Hormone (TSH) 1.81 uIU/mL (0.358-3.74); Triglycerides 137 mg/dL; Very Low Density Lipoprotein 27 mg/dL (5-40)
== END ==
PROVIDERS: PCP Student in an Organized Health Care Education/Training Program; Referring Provider Student in an Organized Health Care Education/Training Program; Visit Provider Student in an Organized Health Care Education/Training Program
DX: E11.22 Type 2 diabetes mellitus with diabetic chronic kidney disease (principal); N18.30 Chronic kidney disease, stage 3 unspecified; E61.1 Iron deficiency
CPT/HCPCS: 36415; 80048; 80061; 80076; 82306; 82728; 83970; 84100; 84443; 85027

== ENCOUNTER 2021-03-15 08:27 | Outpatient (CLI) | payer MEDICARE, OTHER, SELFPAY ==
[2021-03-15 09:09] LABS: Hematocrit 39.2 % (37-47); Hemoglobin 12.8 g/dL (12.0-15.0); Mean Corp Hgb Conc 32.7 g/dL (32-36); Mean Corpuscular Hgb 32.2 pg (27.0-32.0); Mean Corpuscular Volume 98.5 fL (81-99); Mean Platelet Vol. 11.2 fl (6.2-12.0); Platelet Count 228 K/mm3 (150-450); RBC Distribution Width CV 12.2 % (11.6-14.6); RBC Distribution Width SD 44.9 fl (35.1-43.9); Red Blood Count 3.98 M/mm3 (4.2-5.4); White Blood Count 8.1 K/mm3 (4.4-11.0)
[2021-03-15 09:26] LABS: Hemoglobin A1c 6.2 % (3.8-5.6)
[2021-03-15 09:38] LABS: PTHIN 57.8 pg/mL (18.4-80.1)
[2021-03-15 09:42] LABS: Albumin, Serum 3.7 g/dL (3.2-5.0); BUN 21 mg/dL (7-18); Calcium,Total 9.3 mg/dL (8.5-10.1); Chloride 105 mmol/L (98-107); Cholesterol 155 mg/dL (200); Creatinine, Serum 1.31 mg/dL (0.55-1.02); EST Glomerular Filtration Rate 42 mL/min (>60); Est Glom Filt Rate - Afr Amer 50 mL/min (>60); Ferritin 90 ng/mL (8-252); Glucose 112 mg/dL (74-106); High Density Lipoprotein 54 mg/dL; Phosphorus 3.7 mg/dL (2.5-4.9); Potassium 4.6 mmol/L (3.5-5.1); Sodium Level 142 mmol/L (136-145); Triglycerides 141 mg/dL; Very Low Density Lipoprotein 28 mg/dL (5-40)
[2021-03-15 09:43] LABS: Vitamin D,25 Hydroxy 39.6 ng/mL
== END 2021-03-15 23:59 | disposition short-term general hospital (02) ==
PROVIDERS: PCP Student in an Organized Health Care Education/Training Program; Referring Provider Student in an Organized Health Care Education/Training Program; Visit Provider Student in an Organized Health Care Education/Training Program
DX: E11.22 Type 2 diabetes mellitus with diabetic chronic kidney disease (principal); N18.30 Chronic kidney disease, stage 3 unspecified; E61.1 Iron deficiency
CPT/HCPCS: 36415; 80061; 80069; 82306; 82728; 83036; 83970; 85027

== ENCOUNTER 2021-04-27 08:49 | Outpatient (CLI) | payer MEDICARE, OTHER, SELFPAY ==
[2021-04-27 09:23] LABS: Magnesium 1.9 mg/dL (1.6-2.6)
== END 2021-04-27 23:59 | disposition home or self-care (01) ==
LOC: LAB 08:52
PROVIDERS: PCP Student in an Organized Health Care Education/Training Program; Referring Provider Student in an Organized Health Care Education/Training Program; Visit Provider Student in an Organized Health Care Education/Training Program
DX: M81.0 Age-related osteoporosis without current pathological fracture (principal)
CPT/HCPCS: 36415; 83735

== ENCOUNTER 2021-06-07 15:39 | Observation (INO) | payer MEDICARE, OTHER, SELFPAY ==
[2021-06-07 15:41] VITALS: BP 182/61; PULSE 124; RESP 12; TEMP 36.6; O2SAT 95; BMI 28.9
--- NOTE | 2021-06-07 16:31 | EKG12_ITS ---
Test Reason : DIZZY Blood Pressure : / mmHG Vent. Rate : 088 BPM Atrial Rate : 088 BPM P-R Int : 196 ms QRS Dur : 170 ms QT Int : 452 ms P-R-T Axes : 055 -84 065 degrees QTc Int : 546 ms Atrial-sensed ventricular-paced rhythm Abnormal ECG Confirmed by JOSE JAMIL, VALENCIA ([id number]), food editor ABDULKADIR MARTINEZ ([id number]) on 06/14/2021 10:24:59 AM Referred By: CAMILLA Confirmed By:VALENCIA GARCIA MD
--- NOTE | 2021-06-07 16:36 | EDS_ITS ---
HPI History of Present Illness Chief Complaint: Dizziness Informant: patient Narrative Narrative: Patient is a 81-year-old female with history of dementia, coronary artery disease, sick sinus syndrome requiring pacemaker ([employer]), diabetes mellitus, hypertension and hyperlipidemia presenting for dizziness. Patient states throughout the day she just felt dizzy today. Patient states last time she felt this way was when she needed a pacemaker. She states she has a sensation of feeling like she might pass out. Denies any room spinning sensation. Currently does not have any significant symptoms. Did have an episode of vomiting upon arrival to the ER. Currently denies any abdominal pain but is complaining of nausea. Denies any recent change in bowel habits, urinary symptoms, black or blood in her stool or weight changes. No fever chills. No upper respiratory symptoms. [facility] Medical History Atherosclerotic heart disease of [place] coronary artery without angina pectoris Diabetes mellitus Essential hypertension History of left heart catheterization (04/03/13) Hyperlipidemia PVC (premature ventricular contraction) Sick sinus syndrome Sinus tachycardia Home Medications aspirin 81 mg PO DAILY@0800 04/02/13 [History Last Taken 04/03/13] ferrous sulfate 325 mg (65 mg iron) tablet 325 mg PO DAILY 30 Days 02/05/17 [History Last Taken Unknown] brimonidine 1 drop LEFT EYE BID 05/21/20 [History Last Taken Unknown] timolol maleate 1 drop LEFT EYE BID 05/21/20 [History Last Taken Unknown] calcium carbonate 500 mg PO BIDCM tablet 06/04/20 [Rx Last Taken Unknown] insulin glargine 18 units SC DAILY pen 06/04/20 [Rx Last Taken Unknown] cholecalciferol (vitamin D3) 50 mcg (2,000 unit) capsule 50 mcg PO DAILY 07/25/20 [History Last Taken Unknown] blrictml-hek-bfjqn acid 0.4 mg-lycopene 300 mcg-lutein 250 mcg tablet 1 tab PO DAILY 07/25/20 [History Last Taken Unknown] amlodipine 10 mg tablet 10 mg PO QDAY #90 tab 03/09/21 [Rx Last Taken Unknown] isosorbide mononitrate 60 mg tablet,extended release 24 hr 60 mg PO BID #180 tab 03/09/21 [Rx Last Taken Unknown] losartan 100 mg tablet 100 mg PO DAILY #90 tab 03/09/21 [Rx Last Taken Unknown] rosuvastatin 20 mg tablet 20 mg PO DAILY #90 tab 03/09/21 [Rx Last Taken Unknown] Allergy/AdvReac Type Severity Reaction Status Date / Time Sulfa (Sulfonamide Allergy Unknown Verified 06/07/21 15:44 Antibiotics) Family History Father CAD (coronary artery disease) Mother Diabetes Brother Lung cancer Brother Lung cancer Surgical History 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) H/O endarterectomy History of coronary artery bypass surgery (~06/13/13) History of tubal ligation 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) Social History (Updated 06/07/21 @ 20:[address] Jazmin Marquez MD) household members: none Smoking Status: Never smoker alcohol intake: never substance use type: does not use ROS ROS ED Constitutional Constitutional ED: Reports other Details: Dizziness ; Denies chills or fever(s) Eyes Eyes: Denies blurry vision or diplopia ENT ENT ED: Denies rhinorrhea or sore throat Cardiovascular Cardiovascular: Denies chest pain or palpitations Respiratory/Chest Respiratory/Chest: Denies cough or dyspnea Gastrointestinal Gastrointestinal: Reports nausea and vomiting; Denies abdominal pain or diarrhea Genitourinary Genitourinary ED: Denies dysuria Musculoskeletal Musculoskeletal: Denies arthralgias or myalgias Integumentary Denies rash Neurologic Neurologic: Denies headache(s), paresthesias or weakness EXAM Physical Exam Const Vital Signs: 06/07/21 15:41 06/07/21 15:44 06/07/21 17:36 Temperature 97.8 F Temperature Source Temporal Pulse Rate 124 H Pulse Rate [Lying] 93 Pulse Rate [Sitting (for 1 minute prior to obtaining)] 99 Respiratory Rate 12 Respiratory Effort Normal Non-Labored Respiratory Pattern Normal Blood Pressure 182/61 H Blood Pressure [Lying] 141/69 H Blood Pressure [Sitting (for 1 minute prior to obtaining)] 141/77 H Blood Pressure Mean 101 Blood Pressure Mean [Lying] 93 Blood Pressure Mean [Sitting (for 1 minute prior to obtaining)] 98 Pulse Ox 95 Oxygen Delivery Method Room Air Positive well nourished and well developed General Appearance ED: well developed and NAD HEENT Reports moist mucous membranes Negative for trauma Eyes PERRL and EOMs intact bilaterally Eyes Narrative: No nystagmus Neck supple and no JVD Resp normal respiratory effort and clear to auscultation bilaterally Auscultation: Negative for wheezes Cardio regular rhythm and no murmurs Rate: tachycardic GI normal to inspection, nondistended, normoactive bowel sounds and non-tender Palpation: soft Back/Spine no CVA tenderness Extremity normal to inspection Neuro oriented x3 Neuro Narrative: Normal coordination with normal [id number]. No truncal ataxia Sensorium / Orientation: alert Motor Exam: general weakness Psych mental status grossly normal Skin no rashes or lesions noted and no wounds MDM MDM MDM Narrative Medical decision making narrative: Patient evaluated for vague sense of dizziness. She does have significant history of sick sinus syndrome which is why she has a pacemaker as well as coronary artery disease status post CABG, diabetes and grade 1 diastolic dysfunction. She did not have any truncal ataxia or altered coordination on exam. I have not able to reproduce her symptoms with range of motion of the head and she has no nystagmus. I have a lower suspicion for vertigo. Patient does not have any other systemic symptoms except for her vomiting. EKG shows a paced rhythm. Patient not able to stand up for completion of orthostatic vital signs. No significant change from laying to sitting. Patient does have a mild elevation of her creatinine from 1.3-1.63. This is nonspecific however. She is mildly hyperglycemic with a glucose of 222 however her anion gap is normal at 5. Urinalysis does show positive nitrates, red blood cells, white blood cells and 1+ bacteria on straight catheterization. Is possible that she could have a UTI contributing to the symptoms. Urine culture sent. Patient started on IV Rocephin. Patient is not having any abdominal or back pain of a lower suspicion for kidney stone or other pathology causing the hematuria. Patient is admitted for further monitoring of her dizziness especially as she lives home alone and is a fall risk as well as treatment of her UTI. Lab Data Attestation: I reviewed the patient's lab results. Labs: Laboratory Results - last 24 hr 06/07/21 06/07/21 06/07/21 16:00 16:00 18:00 WBC 9.6 RBC 3.79 L Hgb 12.3 Hct 36.7 L MCV 96.8 MCH 32.5 H MCHC 33.5 RDW Std Deviation 43.5 RDW Coeff of Vicki 12.2 Plt Count 210 MPV 12.3 H Immature Gran % (Auto) 0.400 Neut % (Auto) 66.7 Lymph % (Auto) 18.8 L [place] % (Auto) 10.3 H Eos % (Auto) 3.4 Baso % (Auto) 0.4 Absolute Neuts (auto) 6.4 Absolute Lymphs (auto) 1.81 Nucleated RBC % 0 Sodium 139 Potassium 5.0 Chloride 108 H Carbon Dioxide 26.0 Anion Gap 5 BUN 27 H Creatinine 1.63 H Estim Creat Clear Calc 22.13 Est GFR (MDRD) Af Amer 39 L Est GFR (MDRD) Non-Af 32 L BUN/Creatinine Ratio 16.6 Glucose 222 H Calcium 9.5 Magnesium 2.5 Total Bilirubin 0.50 AST 41 H ALT 27 Alkaline Phosphatase 94 Troponin I High Sens 13 Total Protein 7.6 Albumin 3.2 Globulin 4.4 H Albumin/Globulin Ratio 0.7 L Urine Color Yellow Urine Clarity Sl. Cloudy Urine pH 6.0 Ur Specific [place] 1.015 Urine Protein 30 H Urine Glucose (UA) Normal Urine Ketones Negative Urine Occult Blood 150 H Urine Nitrite Positive H Urine Bilirubin Negative Urine Urobilinogen Normal Ur Leukocyte Esterase 25 H Urine RBC 10-25 SEEN Urine WBC 10-25 SEEN Ur Squamous Epith Cells 0 SEEN Urine Bacteria 1+ Urine Mucus 0 SEEN 06/07/21 18:15 WBC RBC Hgb Hct MCV MCH MCHC RDW Std Deviation RDW Coeff of Vicki Plt Count MPV Immature Gran % (Auto) Neut % (Auto) Lymph % (Auto) [place] % (Auto) Eos % (Auto) Baso % (Auto) Absolute Neuts (auto) Absolute Lymphs (auto) Nucleated RBC % Sodium Potassium Chloride Carbon Dioxide Anion Gap BUN Creatinine Estim Creat Clear Calc Est GFR (MDRD) Af Amer Est GFR (MDRD) Non-Af BUN/Creatinine Ratio Glucose Calcium Magnesium Total Bilirubin AST ALT Alkaline Phosphatase Troponin I High Sens 17 Total Protein Albumin Globulin Albumin/Globulin Ratio Urine Color Urine Clarity Urine pH Ur Specific [place] Urine Protein Urine Glucose (UA) Urine Ketones Urine Occult Blood Urine Nitrite Urine Bilirubin Urine Urobilinogen Ur Leukocyte Esterase Urine RBC Urine WBC Ur Squamous Epith Cells Urine Bacteria Urine Mucus Radiography Chest X-Ray - ED: 1 View, Read by ED Physician, Read by Radiologist and No Acute Disease Diagnostic Testing: Clinical Impression(s) from Imaging Studies Chest X-Ray 06/07/21 16:45 IMPRESSION: No acute cardiopulmonary process identified. Electronically Signed: Barry Friend MD at 17:16 EDT Reading Location ID and State: [facility] Tel , Service support , Rhythm Strip Rhythm Strip: Sinus Rhythm Rate: 88 Ectopy: None EKG Initial EKG: Attestation: I personally reviewed and interpreted this EKG as follows: Interpretation: Paced Comments: Atrial sensed ventricular paced rhythm at a rate of 88 Left axis deviation Widened QRS of [address] segment changes Discharge Plan Dx/Rx/DC Orders Clinical Impression: Near syncope, Dehydration, History of coronary artery bypass surgery, UTI (urinary tract infection) Disposition Disposition: Acute Care Hospital [facility] Discharge Date/Time: 06/07/21 20:01
--- NOTE | 2021-06-07 16:45 | RAD_ITS ---
STUDY: X-RAY CHEST REASON FOR EXAM: Female, 81 years old. TECHNIQUE: Single frontal view of the chest. COMPARISON: 03/19/2020 FINDINGS: Left cardiac device. Median sternotomy wires. Nonspecific elevation of the right hemidiaphragm. The lungs are clear and expanded. There is no demonstrated pleural abnormality. Normal size heart. Normal mediastinum and liza. Normal visualized pulmonary arteries. Normal visualized aortic arch and descending thoracic aorta. Normal visualized thoracic spine. Normal visualized ribs, clavicles, and shoulders. There is no demonstrated abnormality of the visualized soft tissue structures of the upper abdomen. RAD/Chest 1 View (Portable) IMPRESSION: No acute cardiopulmonary process identified. Electronically Signed: Barry Friend MD at 17:16 EDT ,
[2021-06-07] MEDS: Ondansetron 4 MG/2 ML Vial IV (16:47)
[2021-06-07 17:09] LABS: Absolute Lymphocyte Count 1.81 X10^3/uL (0.83-4.51); Absolute Neutrophil Count 6.4 X10^3/uL (2.0-7.7); Basophil# 0.04 X10^3/uL; Basophil% 0.4 % (0-1); Eosinophil# 0.33 X10^3/uL; Eosinophils% 3.4 % (0-5); Hematocrit 36.7 % (37-47); Hemoglobin 12.3 g/dL (12.0-15.0); Lymphocyte # 1.81 X10^3/ul (0.83-4.51); Lymphocyte % 18.8 % (19-41); Mean Corp Hgb Conc 33.5 g/dL (32-36); Mean Corpuscular Hgb 32.5 pg (27.0-32.0); Mean Corpuscular Volume 96.8 fL (81-99); Mean Platelet Vol. 12.3 fl (6.2-12.0); Monocyte# 0.99 X10^3/uL; Monocyte% 10.3 % (0-10); NRBC Flagged by Analyzer 0 % (0-5); Neutrophil # 6.43 X10^3/uL (2.7-7.7); Neutrophil % 66.7 % (47-70); Platelet Count 210 K/mm3 (150-450); RBC Distribution Width CV 12.2 % (11.6-14.6); RBC Distribution Width SD 43.5 fl (35.1-43.9); Red Blood Count 3.79 M/mm3 (4.2-5.4); White Blood Count 9.6 K/mm3 (4.4-11.0)
[2021-06-07 17:24] LABS: ALB/GLOB Ratio 0.7 RATIO (0.9-2.4); AST(SGOT) 41 U/L (15-37); Alanine Aminotransfer ALT/SGPT 27 U/L (13-56); Albumin, Serum 3.2 g/dL (3.2-5.0); Alkaline Phosphatase 94 U/L (45-117); Anion Gap 5 (5-15); BUN 27 mg/dL (7-18); BUN/Creat Ratio 16.6 RATIO (10-20); Calcium,Total 9.5 mg/dL (8.5-10.1); Chloride 108 mmol/L (98-107); Creatinine, Serum 1.63 mg/dL (0.55-1.02); EST Glomerular Filtration Rate 32 mL/min (>60); Est Glom Filt Rate - Afr Amer 39 mL/min (>60); Estimated Creatinine Clearance 22.13 ml/min; Globulin 4.4 g/dL (2.2-4.2); Glucose 222 mg/dL (74-106); Magnesium 2.5 mg/dL (1.6-2.6); Protein, Total 7.6 g/dL (6.4-8.2); Sodium Level 139 mmol/L (136-145); Troponin-I HS 13 pg/mL (3.0-54.0)
[2021-06-07 17:36] VITALS: BP 141/69; BP 141/77; PULSE 93; PULSE 99
[2021-06-07 18:04] LABS: Mucous, Urine 0 SEEN /hpf (<or=2+); Squamous Epithelial Cells - UA 0 SEEN /hpf (5-10)
[2021-06-07 18:18] LABS: Color, Urine Yellow (Yellow); Glucose, Dipstick Normal (Normal); Ketone-Dipstick Negative (Negative); Leukocyte Esterase-Dipstick 25 /ul (Negative); Nitrite-Dipstick Positive (Negative); Occult Blood-Urine 150 /ul (Negative); Protein-Dipstick 30 mg/dl (Negative); Specific Gravity, Urine 1.015 (1.002-1.030); Urine Bilirubin Dipstick Negative (Negative); Urine Clarity Sl. Cloudy (Clear); Urine Urobilinogen Normal (Normal)
[2021-06-07 18:24] LABS: White Blood Cells 10-25 SEEN /hpf (0-5)
[2021-06-07 18:25] LABS: Bacteria 1+ /hpf (None Seen); Red Blood Cells-Urine 10-25 SEEN /hpf (0-5)
[2021-06-07 18:42] LABS: Troponin-I HS 17 pg/mL (3.0-54.0)
[2021-06-07] MEDS: Ceftriaxone 1 GM/50 ML BAG IV (19:25)
--- NOTE | 2021-06-07 19:51 | HP.PCM_ITS ---
Documented by User: ANGEL De La Rosa 06/07/21 20:07 HPI - General General Date of Admission: 06/07/21 Date of Service: 06/07/21 Chief Complaint: Dizziness HPI Narrative SILVIO NO, is a 81 F who presents with complaints of dizziness that started earlier today. Patient states last time she felt this way was when she needed a pacemaker. Review of pacemaker interrogation shows that patient has had int ermittent periods of nonsustained SVT. Patient currently does not have any symptoms but states that she had symptoms earlier prior to arrival. Patient did have 1 episode of emesis in the ER but denies feeling sick or but continues to complain of nausea following emesis. Patient has a medical history of hypertension, diabetes mellitus, hyperlipidemia, sick sinus syndrome for which she received a pacemaker for. [facility] Medical History Atherosclerotic heart disease of [place] coronary artery without angina pectoris Diabetes mellitus Essential hypertension History of left heart catheterization (04/03/13) Hyperlipidemia PVC (premature ventricular contraction) Sick sinus syndrome Sinus tachycardia Home Medications aspirin 81 mg PO DAILY@0800 04/02/13 [History Last Taken 04/03/13] ferrous sulfate 325 mg (65 mg iron) tablet 325 mg PO DAILY 30 Days 02/05/17 [History Last Taken Unknown] brimonidine 1 drop LEFT EYE BID 05/21/20 [History Last Taken Unknown] timolol maleate 1 drop LEFT EYE BID 05/21/20 [History Last Taken Unknown] calcium carbonate 500 mg PO BIDCM tablet 06/04/20 [Rx Last Taken Unknown] insulin glargine 18 units SC DAILY pen 06/04/20 [Rx Last Taken Unknown] cholecalciferol (vitamin D3) 50 mcg (2,000 unit) capsule 50 mcg PO DAILY 07/25/20 [History Last Taken Unknown] xsyamnbe-gpd-ydetx acid 0.4 mg-lycopene 300 mcg-lutein 250 mcg tablet 1 tab PO DAILY 07/25/20 [History Last Taken Unknown] amlodipine 10 mg tablet 10 mg PO QDAY #90 tab 03/09/21 [Rx Last Taken Unknown] isosorbide mononitrate 60 mg tablet,extended release 24 hr 60 mg PO BID #180 tab 03/09/21 [Rx Last Taken Unknown] losartan 100 mg tablet 100 mg PO DAILY #90 tab 03/09/21 [Rx Last Taken Unknown] rosuvastatin 20 mg tablet 20 mg PO DAILY #90 tab 03/09/21 [Rx Last Taken Unknown] Allergy/AdvReac Type Severity Reaction Status Date / Time Sulfa (Sulfonamide Allergy Unknown Verified 06/07/21 15:44 Antibiotics) Family History Father CAD (coronary artery disease) Mother Diabetes Brother Lung cancer Brother Lung cancer Surgical History 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) H/O endarterectomy History of coronary artery bypass surgery (~06/13/13) History of tubal ligation 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) Social History (Updated 06/07/21 @ 20:[address] Jazmin Marquez MD) household members: none Smoking Status: Never smoker alcohol intake: never substance use type: does not use ROS Constitutional Constitutional: Denies anorexia, chills, fatigue, fever(s), malaise or weakness Cardiovascular Cardiovascular: Reports nausea, palpitations and vomiting; Denies chest pain or edema Respiratory/Chest Respiratory/Chest: Denies cough, shortness of breath at rest, shortness of breath with exertion or wheezing Gastrointestinal Gastrointestinal: Denies abdominal pain, constipation or diarrhea Genitourinary Genitourinary: Denies dysuria Musculoskeletal Musculoskeletal: Denies back pain, extremity pain, joint pain or joint stiffness Integumentary Integumentary: Denies dry skin Neurologic Neurologic: Reports dizziness; Denies abnormal gait, abnormal speech, confusion or focal weakness Psychiatric Psychiatric: Denies anxiety or depression Endocrine Endocrinology: Denies change in body appearance Hematologic/Lymphatic Hematologic/Lymphatic: Denies anemia Vital Signs Vital Signs Vital Signs: 06/07/21 15:41 06/07/21 15:44 06/07/21 17:36 Temperature 97.8 F Temperature Source Temporal Pulse Rate 124 H Pulse Rate [Lying] 93 Pulse Rate [Sitting (for 1 minute prior to obtaining)] 99 Respiratory Rate 12 Respiratory Effort Normal Non-Labored Respiratory Pattern Normal Blood Pressure 182/61 H Blood Pressure [Lying] 141/69 H Blood Pressure [Sitting (for 1 minute prior to obtaining)] 141/77 H Blood Pressure Mean 101 Blood Pressure Mean [Lying] 93 Blood Pressure Mean [Sitting (for 1 minute prior to obtaining)] 98 Pulse Ox 95 Oxygen Delivery Method Room Air Weight Weight: 158 lb 1.143 oz Body Mass Index (BMI) 28.9 Physical Exam Const alert, oriented x3 and no apparent distress General Appearance: cooperative HEENT normocephalic and head/scalp atraumatic Eyes conjunctivae normal and no scleral icterus Neck supple General: trachea midline Lymph Lymphatic: no lymphadenopathy noted Resp normal respiratory effort, normal air movement and clear to auscultation bilaterally Cardio regular rate, regular rhythm, S1 normal heart sound, S2 normal heart sound and peripheral pulses 2+ throughout GI normal to inspection, nondistended, normoactive bowel sounds, soft to palpation and non-tender Extremity normal capillary refill and no clubbing, cyanosis or edema General Extremity: no tenderness to palpation of joints or extremities Skin General Skin Exam: no breakdown and turgor normal Lesions: no lesions Rashes: no rashes Neuro no focal motor deficits and no sensory deficits noted Speech: speech normal Motor Exam: Negative for general weakness Psych thought process normal, cooperative and affect normal Appearance: appropriate Results Lab / Micro Data Result Diagrams: 06/07/21 16:00 06/07/21 16:00 Labs: Laboratory Results - last 24 hr 06/07/21 16:00: WBC 9.6, RBC 3.79 L, Hgb 12.3, Hct 36.7 L, MCV 96.8, MCH 32.5 H, MCHC 33.5, RDW Std Deviation 43.5, RDW Coeff of Vicki 12.2, Plt Count 210, MPV 12.3 H, Immature Gran % (Auto) 0.400, Neut % (Auto) 66.7, Lymph % (Auto) 18.8 L, [place] % (Auto) 10.3 H, Eos % (Auto) 3.4, Baso % (Auto) 0.4, Absolute Neuts (auto) 6.4, Absolute Lymphs (auto) 1.81, Nucleated RBC % 0 06/07/21 16:00: Sodium 139, Potassium 5.0, Chloride 108 H, Carbon Dioxide 26.0, Anion Gap 5, BUN 27 H, Creatinine 1.63 H, Estim Creat Clear Calc 22.13, Est GFR (MDRD) Af Amer 39 L, Est GFR (MDRD) Non-Af 32 L, BUN/Creatinine Ratio 16.6, Glucose 222 H, Calcium 9.5, Magnesium 2.5, Total Bilirubin 0.50, AST 41 H, ALT 27, Alkaline Phosphatase 94, Troponin I High Sens 13, Total Protein 7.6, Albumin 3.2, Globulin 4.4 H, Albumin/Globulin Ratio 0.7 L 06/07/21 18:00: Urine Color Yellow, Urine Clarity Sl. Cloudy, Urine pH 6.0, Ur Specific [place] 1.015, Urine Protein 30 H, Urine Glucose (UA) Normal, Urine Ketones Negative, Urine Occult Blood 150 H, Urine Nitrite Positive H, Urine Bilirubin Negative, Urine Urobilinogen Normal, Ur Leukocyte Esterase 25 H, Urine RBC 10-25 SEEN, Urine WBC 10-25 SEEN, Ur Squamous Epith Cells 0 SEEN, Urine Bacteria 1+, Urine Mucus 0 SEEN 06/07/21 18:15: Troponin I High Sens 17 Rhythm Strip Rhythm Strip: Sinus Rhythm Rate: 88 Ectopy: None Radiology Impression Chest X-Ray 06/07/21 16:45 IMPRESSION: No acute cardiopulmonary process identified. Electronically Signed: Barry Friend MD at 17:16 EDT Reading Location ID and State: [facility] / [place] Tel , Service support , Assessment & Plan Assessment/Plan (1) Near syncope: PLAN: 1. Near syncope -Admit to PCU for cardiac monitoring -Echocardiogram in a.m. -Trend cardiac enzymes -Daily weights -PT and OT to eval and treat -Orthostatic vital signs x1 -Twelve-lead EKG daily -CBC, CMP daily -Repeat chest x-ray in a.m. -Pacer ICD check completed in ER -Respiratory panel ordered 2. Nausea and vomiting -Clear liquid diet secondary to nausea and vomiting -As needed Zofran, Compazine ordered 3. Hypertension -Continue amlodipine, isosorbide, losartan -Vital signs per protocol, stable -As needed hydralazine IV ordered 4. Diabetes mellitus type 2 -Continue insulin glargine -ACH S blood sugars with sliding scale insulin ordered 5. Hyperlipidemia -Continue rosuvastatin not yet is been very to come back DVT prophylaxis-subcu heparin This patient was seen by ANGEL De La Rosa under the supervision of Dr. Marquez. 32 minutes spent in clinical coordination of patient's plan of care. Documented by User: Dr. Jazmin Marquez MD 06/07/21 20:08 HPI - General General Date of Admission: 06/07/21 [facility] Medical History Atherosclerotic heart disease of [place] coronary artery without angina pectoris Diabetes mellitus Essential hypertension History of left heart catheterization (04/03/13) Hyperlipidemia PVC (premature ventricular contraction) Sick sinus syndrome Sinus tachycardia Home Medications aspirin 81 mg PO DAILY@0800 04/02/13 [History Last Taken 04/03/13] ferrous sulfate 325 mg (65 mg iron) tablet 325 mg PO DAILY 30 Days 02/05/17 [History Last Taken Unknown] brimonidine 1 drop LEFT EYE BID 05/21/20 [History Last Taken Unknown] timolol maleate 1 drop LEFT EYE BID 05/21/20 [History Last Taken Unknown] calcium carbonate 500 mg PO BIDCM tablet 06/04/20 [Rx Last Taken Unknown] insulin glargine 18 units SC DAILY pen 06/04/20 [Rx Last Taken Unknown] cholecalciferol (vitamin D3) 50 mcg (2,000 unit) capsule 50 mcg PO DAILY 07/25/20 [History Last Taken Unknown] nduafign-zkt-vuzdj acid 0.4 mg-lycopene 300 mcg-lutein 250 mcg tablet 1 tab PO DAILY 07/25/20 [History Last Taken Unknown] amlodipine 10 mg tablet 10 mg PO QDAY #90 tab 03/09/21 [Rx Last Taken Unknown] isosorbide mononitrate 60 mg tablet,extended release 24 hr 60 mg PO BID #180 tab 03/09/21 [Rx Last Taken Unknown] losartan 100 mg tablet 100 mg PO DAILY #90 tab 03/09/21 [Rx Last Taken Unknown] rosuvastatin 20 mg tablet 20 mg PO DAILY #90 tab 03/09/21 [Rx Last Taken Unknown] Allergy/AdvReac Type Severity Reaction Status Date / Time Sulfa (Sulfonamide Allergy Unknown Verified 06/07/21 15:44 Antibiotics) Family History Father CAD (coronary artery disease) Mother Diabetes Brother Lung cancer Brother Lung cancer Surgical History 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) H/O endarterectomy History of coronary artery bypass surgery (~06/13/13) History of tubal ligation 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) Social History (Updated 06/07/21 @ 20:[address] Jazmin Marquez MD) household members: none Smoking Status: Never smoker alcohol intake: never substance use type: does not use Results Lab / Micro Data Result Diagrams: 06/07/21 16:00 06/07/21 16:00
[2021-06-07] MEDS: 0.9% Normal Saline 1,000 ML 100 ML IV ×2 (19:57→20:29)
[2021-06-07 20:00] VITALS: BP 149/74; PULSE 89; RESP 18; TEMP 36.6; O2SAT 96
--- NOTE | 2021-06-07 20:09 | ECHOD_ITS ---
Procedure This was a 2D Doppler, Color Flow transthoracic echocardiogram. Exam performed portable in patient room. Left Ventricle Normal left ventricle. The estimated ejection fraction is 55-60 %. Right Ventricle Normal right ventricle. Normal systolic function. Atria The left atrium is mildly enlarged. Normal right atrium. Mitral Valve There is severe mitral annular calcification. Trivial mitral valve insufficiency. Tricuspid Valve Normal tricuspid valve. Mild tricuspid valve insufficiency. Aortic Valve Mild diffuse aortic valve calcification. No aortic valve insufficiency. Pulmonic Valve The pulmonic valve is not well visualized. Great Vessels Normal aortic root. Pericardium/Pleural No pericardial effusion. MMode/2D Measurements & Calculations LVIDd: 5.1 cm IVSd: 1.1 cm Ao root diam: 3.0 cm LVIDs: 3.5 cm LVPWd: 1.1 cm RVDd: 3.8 cm FS: 31.5 % LAV(MOD-bp): 51.7 ml LVAd ap4: 29.4 cm2 SV(MOD-sp4): 56.3 ml LAV(MOD-bp) Indexed: 29.9 ml/m2 LVLd ap4: 7.5 cm LAV(MOD-sp2): 54.1 ml EDV(MOD-sp4): 96.5 ml LAV(MOD-sp4): 49.1 ml EDV(sp4-el): 98.3 ml LVAs ap4: 17.8 cm2 LVLs ap4: 6.6 cm ESV(MOD-sp4): 40.2 ml ESV(sp4-el): 41.0 ml EF(MOD-sp4): 58.4 % EF(sp4-el): 58.3 % SV(sp4-el): 57.3 ml LA A4 area: 18.0 cm2 LA dimension(2D): 4.3 cm RA A4 area: 15.3 cm2 Time Measurements MV dec time: 0.29 sec Doppler Measurements & Calculations MV E max becca: 96.2 cm/sec Ao V2 max: 156.6 cm/sec LV V1 max: 99.3 cm/sec MV A max becca: 174.2 cm/sec Ao max P.9 mmHg LV V1 max P.0 mmHg MV E/A: 0.55 PA V2 max: 105.0 cm/sec TR max becca: 323.3 cm/sec TR max P.8 mmHg ECHO/Echo Complete Interpretation Summary The estimated ejection fraction is 55-60 %. Grade #1 Diastolic Dysfunction RVSP 45 mmhg Mild -moderate pulmonary Hypertension Ordering Physician: Jazmin Marquez Referring Physician: BENY STRAUSS Performed By: Ning Jackson RDCS
[2021-06-07 20:10] VITALS: PULSE 84
[2021-06-07 20:11] VITALS: BP 166/83; PULSE 95; RESP 18; TEMP 36.8; O2SAT 95
[2021-06-07 20:15] VITALS: BMI 27.1
[2021-06-07 21:03] VITALS: O2SAT 95
[2021-06-07] MEDS: Timolol 0.25% 5ML OPTH.BTL 1 DRP LEFT EYE (21:28)
[2021-06-07] MEDS: Heparin Injection (Vial) 5,000 UNIT/ML VIAL 5000 UNIT SC (21:28)
[2021-06-07] MEDS: Isosorbide Mononitrate 60 MG Tablet PO (21:28)
[2021-06-07] MEDS: Atorvastatin Calcium 40 MG Tablet PO (21:28)
[2021-06-07] MEDS: BRIMONIDINE 0.2% 5ML BOTTLE 1 DRP LEFT EYE (21:29)
[2021-06-07] MEDS: Insulin Lispro 100 UNIT/ML INSULN.PEN SC (21:29)
[2021-06-07 22:42] LABS: Troponin-I HS 18 pg/mL (3.0-54.0)
[2021-06-08] VITALS (9 sets, daily range): BP systolic 114–144; BP diastolic 58–93; PULSE 81–105; RESP 16; TEMP 36.7–37.6; O2SAT 91–94
[2021-06-08 00:46] LABS: Bedside Glucose 181 mg/dL (74-106)
[2021-06-08 04:54] LABS: Absolute Lymphocyte Count 1.47 X10^3/uL (0.83-4.51); Absolute Neutrophil Count 8.6 X10^3/uL (2.0-7.7); Basophil# 0.04 X10^3/uL; Basophil% 0.4 % (0-1); Eosinophil# 0.27 X10^3/uL; Eosinophils% 2.4 % (0-5); Hematocrit 34.8 % (37-47); Hemoglobin 11.5 g/dL (12.0-15.0); Lymphocyte # 1.47 X10^3/ul (0.83-4.51); Lymphocyte % 13.1 % (19-41); Mean Corpuscular Volume 96.9 fL (81-99); Mean Platelet Vol. 10.8 fl (6.2-12.0); Monocyte% 7.1 % (0-10); NRBC Flagged by Analyzer 0 % (0-5); Neutrophil # 8.61 X10^3/uL (2.7-7.7); Neutrophil % 76.6 % (47-70); Platelet Count 206 K/mm3 (150-450); RBC Distribution Width SD 42.6 fl (35.1-43.9); Red Blood Count 3.59 M/mm3 (4.2-5.4); White Blood Count 11.2 K/mm3 (4.4-11.0)
[2021-06-08 05:39] LABS: ALB/GLOB Ratio 0.8 RATIO (0.9-2.4); AST(SGOT) 18 U/L (15-37); Alanine Aminotransfer ALT/SGPT 24 U/L (13-56); Albumin, Serum 2.8 g/dL (3.2-5.0); Alkaline Phosphatase 82 U/L (45-117); Anion Gap 4 (5-15); BUN 21 mg/dL (7-18); BUN/Creat Ratio 17.5 RATIO (10-20); Calcium,Total 8.2 mg/dL (8.5-10.1); Chloride 111 mmol/L (98-107); EST Glomerular Filtration Rate 46 mL/min (>60); Est Glom Filt Rate - Afr Amer 56 mL/min (>60); Estimated Creatinine Clearance 30.07 ml/min; Globulin 3.7 g/dL (2.2-4.2); Glucose 113 mg/dL (74-106); Potassium 4.4 mmol/L (3.5-5.1); Protein, Total 6.5 g/dL (6.4-8.2); Sodium Level 140 mmol/L (136-145); Thyroid Stim Hormone (TSH) 0.93 uIU/mL (0.358-3.74)
[2021-06-08 05:40] LABS: Procalcitonin 0.53 ng/mL (0.00-0.09)
--- NOTE | 2021-06-08 05:55 | EKG12_ITS ---
Test Reason : AM EKG Blood Pressure : / mmHG Vent. Rate : 095 BPM Atrial Rate : 095 BPM P-R Int : 180 ms QRS Dur : 164 ms QT Int : 428 ms P-R-T Axes : 034 265 059 degrees QTc Int : 537 ms Sinus rhythm with Premature supraventricular complexes with occasional Premature ventricular complexe s Non-specific intra-ventricular conduction block Lateral infarct , age undetermined Inferior infarct , age undetermined Abnormal ECG When compared with ECG of 07-JUN-2021 16:42, MANUAL COMPARISON REQUIRED, DATA IS UNCONFIRMED Confirmed by CALI JAMIL, NARESH ([id number]), social media editor BELEN FINN ([id number]) on 06/16/2021 1:20:12 PM Referred By: DR ROWLAND Confirmed By:PIETRO LEIVA MD
--- NOTE | 2021-06-08 05:55 | RAD_ITS ---
INDICATION: Hypoxia EXAMINATION/TECHNIQUE: X-RAY - XR Chest 1 View COMPARISON: 06/07/2021 FINDINGS: LINES/DEVICES: Left chest pacemaker remains in similar position. LUNGS: Persistent elevation of the right hemidiaphragm. No focal consolidation, pleural effusion or pneumothorax. MEDIASTINUM AND CARDIOVASCULAR STRUCTURES: Surgical changes in the mediastinum, similar compared to the prior. BONES AND SOFT TISSUES: Unremarkable. RAD/Chest 1 View (Portable) IMPRESSION: No acute cardiopulmonary disease. Electronically Signed: Juan Farrar MD at 6:29 EDT ,
[2021-06-08] MEDS: 0.9% Normal Saline 1,000 ML 100 ML IV (06:21)
[2021-06-08 06:50] LABS: Bedside Glucose 127 mg/dL (74-106)
[2021-06-08] MEDS: amLODIPine 10 MG Tablet PO (07:53)
[2021-06-08] MEDS: Heparin Injection (Vial) 5,000 UNIT/ML VIAL 5000 UNIT SC (07:53)
[2021-06-08] MEDS: Isosorbide Mononitrate 60 MG Tablet PO (07:53)
[2021-06-08] MEDS: Losartan Potassium 100 MG Tablet PO (07:53)
[2021-06-08] MEDS: Ferrous Sulfate 325 MG Tablet PO (07:53)
[2021-06-08] MEDS: Calcium Carbonate 500 MG Tablet PO ×2 (07:53→16:08)
[2021-06-08] MEDS: Aspirin 81 MG TAB.CHEW PO (07:53)
[2021-06-08] MEDS: BRIMONIDINE 0.2% 5ML BOTTLE 1 DRP LEFT EYE (07:54)
[2021-06-08] MEDS: Timolol 0.25% 5ML OPTH.BTL 1 DRP LEFT EYE (07:54)
[2021-06-08] MEDS: Ceftriaxone 1 GM/50 ML BAG IV (10:43)
[2021-06-08] MEDS: Insulin Glargine-YFGN 100 UNIT/ML Pen 18 UNIT SC (10:44)
--- NOTE | 2021-06-08 10:58 | CASEMGMT ---
RN CM NUISANCE ANIMAL DAMAGE CONTROL AGENT CM to room to meet with patient for initial transition planning/care coordination assessment. JUSTEN ROJAS introduced self and role at [facility]. Pt voices understanding and consents to assessment at this time. Pt resting in bed in no distress at this time. SonRiaz, @ bedside. Pt is A/O at this time and answers all questions appropriately. Care providers, pharmacy, and demographics verified/updated at this time. PCP: Dr Rosalino Del Valle Preferred Pharmacy: [facility] Retail Insurance: Elinor DEMPSEY Prescription Benefit: Yes Living Will/HPOA: Has completed both LW and HPOA, who is her son, Riaz Bangura LNOK: Son/Riaz DONG Living Arrangements: Pt is . She lives alone in one story home w/4 steps to enter, w/railings. Independent w/ADL's and IADL's. Son buys her groceries. Pt manages her own medications. Transportation: Son, Dtr-in-law, friend. Pt does not drive. DME: States has the following DME: shower chair, functioning glucometer w/supplies. Has walker and W/C available, but does not use any DME to ambulate. Pt states no need for further DME at this time. HHC/SNF: Hx [facility] RU and has had [facility] and [facility]. Pt wishes to discharge home and does not feel she needs HHC at this time. PLAN: Home. PT/OT evals pending. CM to f/u with pt once evals are completed to discuss any d/c planning needs. Sb PATTERSON RN, CM
--- NOTE | 2021-06-08 11:57 | CT_ITS ---
STUDY: CT BRAIN WITHOUT CONTRAST REASON FOR EXAM: Female, 81 years old. Ataxia RADIATION DOSAGE (If Supplied By Facility): CTDIvol = ( 44.99 ) mGy, DLP = ( 762.36 ) mGycm TECHNIQUE: Transaxial CT imaging of the brain was performed without administration of intravenous contrast material. Individualized dose optimization techniques were used for this CT. COMPARISON: Comparison is made with prior study of 05/18/2020. FINDINGS: Normal soft tissue structures. Normal calvarium. There is mild cerebral atrophy with widening of the extra-axial spaces and ventricular dilatation. There are areas of decreased attenuation within the white matter tracts of the supratentorial brain, consistent with microvascular disease changes. Stable encephalomalacia in the posterior left lateral occipital lobes. There are small punctate calcifications of the basal ganglia which are seen in the aging brain as a normal variant. Normal brainstem. Normal cerebellum. There is no intracranial hemorrhage. There are no findings of an acute ischemic infarction. Atherosclerotic calcification of the vertebral arteries and cavernous portions of the internal carotid arteries bilaterally. Normal visualized paranasal sinuses. CT/Brain/Head without Contrast IMPRESSION: Chronic involutional changes of the brain. Stable encephalomalacia in the left posterior parietal occipital lobes. Electronically Signed: Nas Thorne MD at 12:34 EDT ,
--- NOTE | 2021-06-08 12:04 | CASEMGMT ---
Social Work Per RNCM pt did not do well while ambulating today. SW met with pt and introduced self and role of SW. Pt lives at home alone and states that her daughter in law lives very close and can be to her home in minutes if needed. SW broached the topic of short term SNF for Rehab. Pt adamantly refused SNF placement at this time. SW also discussed [facility] TCU and pt continued to decline willingness for SNF. Continued medical work up at this time. SW will remain available for continued d/c needs. LANA Orellana
[2021-06-08 12:10] LABS: Bedside Glucose 241 mg/dL (74-106)
--- NOTE | 2021-06-08 15:31 | CASEMGMT ---
Addendum entered by Westley Ireland 06/08/21 15:53: Call placed to pt's son, Riaz. He was made aware of therapy eval and recommendations. He was also made aware pt states she would go to SNF if he feels that she should and that [facility] TCU is her 1st choice. Riaz agreeable to TCU, stating that would be great, stating he was concerned about her going home alone and is very appreciative of this plan. Riaz aware TCU currently reviewing pt's chart to determine if they are able to accept pt and if so, pt would most likely discharge to TCU today. Riaz voices understanding and appreciation. Original Note: JUSTEN ROJAS NOTE: To room to talk w/pt to discuss discharge planning. Pt aware of therapy recommendations and discharge home alone would not be safe, as she is very unsteady and at risk for falling, and requires assistance w/walking. Pt states she prefers to return home, but states she understands the concerns, and states if her son or dtr-in-law feel she needs to go somewhere short-term for therapy, that she would be agreeable, stating, I'll do whatever they say. Pt states, if they would like her to go somewhere, her 1st preference is to stay @ [facility] for therapy, stating, I want to go wherever I was before. Pt made aware that she was on RU, and that TCU would be more appropriate level of care. Pt states she would like TCU as her 1st preference then. Pt states her son and dtr-in-law are both at work, but states her dtr-in-law may be more available to reach and provided this JUSTEN ROJAS her #. Jessica Bangura: [phone]. Sb BSN JUSTEN ROJAS
[2021-06-08] MEDS: Insulin Lispro 100 UNIT/ML INSULN.PEN SC (16:07)
[2021-06-08 16:31] LABS: Bedside Glucose 207 mg/dL (74-106)
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
--- NOTE | 2021-06-08 17:06 | CASEMGMT ---
Social Work BRUCE received referral from Westley JHAVERI that pt is now willing to go to TCU. Westley also spoke with pt son who is agreeable. Referral to [facility] in TCU and they are able to accept pt today. BRUCE updated pt and she is agreeable. Dr. Lora notified and states pt will discharge today. TCU aware and green sheet placed on chart to assist with discharge when orders are placed. Pt will need negative covid test prior to discharge. Plan: TCU, skilled level of care. LANA Orellana
--- NOTE | 2021-06-08 19:51 | PCM.DC.SUM ---
Providers Date of Admission: 06/07/21 Date of Discharge: 06/08/21 Primary Care Physician: Dr. Rosalino Strauss DO Reason For Visit: NEAR SYNCOPE, NAUSEA Diagnosis Discharge Diagnosis (1) Near syncope: Status: Acute Code(s): R55 - Syncope and collapse (2) Essential hypertension: Status: Chronic Code(s): I10 - Essential (primary) hypertension (3) Alzheimers disease: Status: Suspected Code(s): G30.9 - Alzheimer's disease, unspecified; F02.80 - Dementia in other diseases classified elsewhere without behavioral disturbance (4) Diabetes mellitus: Status: Chronic Code(s): E11.9 - Type 2 diabetes mellitus without complications Qualifiers: Diabetes mellitus type: type 2 Diabetes mellitus watermaster insulin use: with nursing home use Diabetes mellitus complication status: with ophthalmic complications Diabetic retinopathy severity: with unspecified retinopathy severity (5) Atherosclerotic heart disease of [place] coronary artery without angina pectoris: Status: Chronic Code(s): I25.10 - Atherosclerotic heart disease of [place] coronary artery without angina pectoris Qualifiers: [place] vs. transplanted heart: [place] heart Qualified Code(s): I25.10 - Atherosclerotic heart disease of [place] coronary artery without angina pectoris (6) Physical debility: Status: Acute Code(s): R53.81 - Other malaise (7) Chronic renal failure, stage 3b: Status: Chronic Code(s): N18.32 - Chronic kidney disease, stage 3b (8) Cerebrovascular disease: Status: Chronic Code(s): I67.9 - Cerebrovascular disease, unspecified Plan: 1. 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 #8 chronic kidney disease stage IIIb secondary to type 2 diabetes Medications at Discharge Home Medications cholecalciferol (vitamin D3) 50 mcg (2,000 unit) capsule 50 mcg PO DAILY 07/25/20 orclhpji-lkd-brkzl acid 0.4 mg-lycopene 300 mcg-lutein 250 mcg tablet 1 tab PO DAILY 07/25/20 amlodipine 10 mg PO DAILY 06/08/21 aspirin 81 mg PO DAILYCM 06/08/21 atorvastatin 40 mg PO QHS 06/08/21 brimonidine 1 drp LEFT EYE BID 06/08/21 calcium carbonate 500 mg PO BIDCM 06/08/21 cephalexin 500 mg PO BID 06/08/21 ferrous sulfate [FeroSul] 325 mg PO DAILYCM 06/08/21 insulin glargine-yfgn 18 unit SUBCUT DAILY 06/08/21 isosorbide mononitrate 60 mg PO BID 06/08/21 losartan 100 mg PO DAILY 06/08/21 timolol maleate 1 drp LEFT EYE BID 06/08/21 Hospital Course Operations None Procedures 2-D Echocardiogram Summary of Care Provided Minutes Spent on Discharge: 30 Hospital Course: 81-year-old white female was seen in the emergency room at [facility] with a chief complaint of lightheadedness. Patient lives alone and she has a history of dementia (exact type of dementia unknown) patient also has a past history of cerebrovascular disease. Patient complained of a sensation as if she was going to pass out, she denied actual syncope. Work-up in the emergency room included labs which were remarkable for creatinine of 1.63, BUN of 27, glucose of 222, and patient's urinalysis was abnormal showing 10-25 RBCs, 10-25 WBCs, and +1 bacteria as well as positive nitrites. EKG showed a paced rhythm, chest x-ray was unremarkable for acute process. Patient was placed in observation status on PCU and seen by PT and OT, she was placed on IV antibiotics for presumed urinary tract infection, she was unsteady on walking and required assistance, patient agreed to short-term placement in a senior care facility for rehab services, patient was able to be accepted in TCU on 06/08/2021. CT scan of the brain was performed which showed an old stroke in the left posterior parietal occipital lobe with encephalomalacia. Patient's echocardiogram showed a normal EF with no significant valvular dysfunction. Her pacemaker was interrogated which showed one episode of nonsustained ventricular tachycardia since 03/09/2021. On 06/08/2021, patient was seen and examined: On examination she appeared her stated age, she does not appear to be in any distress. Vital signs as documented. Skin warm and dry and without overt rashes. Neck without JVD, thyroid appears normal, trachea is midline, neck is supple. Lungs clear, normal air movement was noted. Heart exam notable for regular rhythm, normal sounds and absence of murmurs, rubs or gallops. Abdomen unremarkable and without evidence of organomegaly, masses, or abdominal aortic enlargement, bowel sounds are present in all 4 quadrants, no abdominal tenderness was noted. Extremities nonedematous, no cyanosis was noted, no clubbing was noted. Neuro: Cranial nerves II through XII are grossly intact, no focal motor deficits were noted, sensation to light touch and pinprick is intact, motor exam 5/5 throughout. Psych: Patient is alert, she answers simple questions appropriately. Patient was felt to be stable for transfer to TCU for short-term inpatient rehab services on 06/08/2021. Weight / BMI Weight Weight: 67.9 kg Body Mass Index (BMI) 27.1 ABG / Lab / Microbiology Data Result Diagrams: 06/08/21 04:46 06/08/21 04:46 Laboratory: Laboratory Results - last 24 hr 06/07/21 21:21: POC Glucose 181 H 06/07/21 22:15: Troponin I High Sens 18 06/08/21 04:46: Procalcitonin 0.53 H 06/08/21 04:46: WBC 11.2 H, RBC 3.59 L, Hgb 11.5 L, Hct 34.8 L, MCV 96.9, MCH 32.0, MCHC 33.0, RDW Std Deviation 42.6, RDW Coeff of Vicki 12.0, Plt Count 206, MPV 10.8, Immature Gran % (Auto) 0.400, Neut % (Auto) 76.6 H, Lymph % (Auto) 13.1 L, [place] % (Auto) 7.1, Eos % (Auto) 2.4, Baso % (Auto) 0.4, Absolute Neuts (auto) 8.6 H, Absolute Lymphs (auto) 1.47, Nucleated RBC % 0 06/08/21 04:46: Sodium 140, Potassium 4.4, Chloride 111 H, Carbon Dioxide 25.0, Anion Gap 4 L, BUN 21 H, Creatinine 1.20 H, Estim Creat Clear Calc 30.07, Est GFR (MDRD) Af Amer 56 L, Est GFR (MDRD) Non-Af 46 L, BUN/Creatinine Ratio 17.5, Glucose 113 H, Calcium 8.2 L, Total Bilirubin 0.30, AST 18, ALT 24, Alkaline Phosphatase 82, Total Protein 6.5, Albumin 2.8 L, Globulin 3.7, Albumin/Globulin Ratio 0.8 L, TSH 0.93 06/08/21 06:23: POC Glucose 127 H 06/08/21 12:04: POC Glucose 241 H 06/08/21 16:06: POC Glucose 207 H Microbiology: Microbiology 06/08/21 16:25 Nasal Secretion SARS-CoV-2 Antigen (Rapid) - Final 06/07/21 18:00 Urine Catheter - Catheter Urine Culture - Preliminary Gram negative flavio 06/07/21 19:40 Mucosa - Nasopharyngeal Respiratory Panel (PCR) - Final Radiography Diagnostic Testing: Radiology Impression Echocardiogram 06/07/21 20:09 Interpretation Summary The estimated ejection fraction is 55-60 %. Grade #1 Diastolic Dysfunction RVSP 45 mmhg Mild -moderate pulmonary Hypertension Ordering Physician: Jazmin Marquez Referring Physician: ROSALINO STRAUSS Performed By: Ning Jackson RDCS Chest X-Ray 06/08/21 05:55 IMPRESSION: No acute cardiopulmonary disease. Electronically Signed: Juan Farrar MD at 6:29 EDT , Brain CT 06/08/21 11:57 IMPRESSION: Chronic involutional changes of the brain. Stable encephalomalacia in the left posterior parietal occipital lobes. Electronically Signed: Nas Thorne MD at 12:34 EDT , Meaningful Use Info Meaningful Use Diagnoses (Choose all that apply): None applicable Discharge Plan Admission Admit Date/Time: 06/07/21 19:28 Primary Reason for Your Visit: debility, presyncope Attending Provider: Ritchie Lora Primary Care Provider: Rosalino Strauss Discharge Orders/Prescriptions Prescriptions: Discontinued ferrous sulfate 325 mg (65 mg iron) tablet 325 mg PO DAILY 30 Days RF: 0 amlodipine 10 mg tablet 10 mg PO QDAY Qty: 90 RF: 3 isosorbide mononitrate 60 mg tablet extended release 24 hr 60 mg PO BID Qty: 180 RF: 3 losartan 100 mg tablet 100 mg PO DAILY Qty: 90 RF: 3 rosuvastatin 20 mg tablet 20 mg PO DAILY Qty: 90 RF: 3 aspirin 81 MG tablet,chewable 81 mg PO DAILY@0800 RF: 0 timolol maleate 1 DROP drops 1 drop LEFT EYE BID RF: 0 brimonidine 1 DROP bottle 1 drop LEFT EYE BID RF: 0 calcium carbonate 500 MG tablet 500 mg PO BIDCM RF: 0 insulin glargine 100 UNITS/ML insulin pen 18 units SC DAILY RF: 0 No Action cholecalciferol (vitamin D3) 50 mcg (2,000 unit) capsule 50 mcg PO DAILY RF: 0 Centrum Silver 0.4-300-250 mg-mcg-mcg tablet 1 tab PO DAILY RF: 0 atorvastatin 40 mg tablet 40 mg PO QHS RF: 0 isosorbide mononitrate 60 mg tablet extended release 24 hr 60 mg PO BID RF: 0 amlodipine 10 mg tablet 10 mg PO DAILY RF: 0 timolol maleate 0.25 % drops 1 drp LEFT EYE BID RF: 0 cephalexin 500 mg capsule 500 mg PO BID RF: 0 ferrous sulfate [FeroSul] 325 mg (65 mg iron) tablet 325 mg PO DAILYCM RF: 0 calcium carbonate 200 mg calcium (500 mg) tablet,chewable 500 mg PO BIDCM RF: 0 brimonidine 0.2 % drops 1 drp LEFT EYE BID RF: 0 aspirin 81 mg tablet,chewable 81 mg PO DAILYCM RF: 0 losartan 100 mg tablet 100 mg PO DAILY RF: 0 insulin glargine-yfgn 100 unit/mL (3 mL) insulin pen 18 unit subcut DAILY RF: 0 Referrals / Follow Up: Rosalino Strauss DO [Primary Care Provider] - Disposition Disposition (needs filled in before D/C Order can be placed): Group Home Facility Charges/Coding Visit Charges OBSV E&M: 13407 Observation care discharge
== END 2021-06-08 17:22 | disposition skilled nursing facility (03) ==
LOC: ED 16:40 → PCU 19:52
PROVIDERS: Admitting Provider Family Medicine; Emergency Provider Emergency Medicine; PCP Student in an Organized Health Care Education/Training Program; Visit Provider Internal Medicine
DX: R55 Syncope and collapse (principal); G30.9 Alzheimer's disease, unspecified; F02.80 Dementia in other diseases classified elsewhere, unspecified severity, without behavioral disturbance, psychotic disturbance, mood disturbance, and anxiety; E11.22 Type 2 diabetes mellitus with diabetic chronic kidney disease; E11.39 Type 2 diabetes mellitus with other diabetic ophthalmic complication; I47.1 Supraventricular tachycardia; Z79.4 Long term (current) use of insulin; N18.32 Chronic kidney disease, stage 3b; N30.00 Acute cystitis without hematuria; R11.2 Nausea with vomiting, unspecified; E78.5 Hyperlipidemia, unspecified; Z95.1 Presence of aortocoronary bypass graft; E86.0 Dehydration; I12.9 Hypertensive chronic kidney disease with stage 1 through stage 4 chronic kidney disease, or unspecified chronic kidney disease; R09.02 Hypoxemia; I25.10 Atherosclerotic heart disease of native coronary artery without angina pectoris; I69.398 Other sequelae of cerebral infarction; Z79.82 Long term (current) use of aspirin; Z79.899 Other long term (current) drug therapy; Z95.0 Presence of cardiac pacemaker; R94.31 Abnormal electrocardiogram [ECG] [EKG]; I08.1 Rheumatic disorders of both mitral and tricuspid valves
CPT/HCPCS: 36415; 70450; 71045; 80053; 81001; 82962; 83735; 84145; 84443; 84484; 85025; 87077; 87086; 87088; 87186; 87426; 87633; 93005; 93306; 96361; 96365; 96366; 96372; 96375; 97162; 97166; 99218; 99285; J7030; J7040; A4216; G0378; J2405

== ENCOUNTER 2021-06-08 18:34 | Inpatient (IN) | payer MEDICARE, OTHER, SELFPAY ==
[2021-06-08 18:38] VITALS: BP 123/66; PULSE 85; RESP 18; TEMP 36.6; O2SAT 95; BMI 23.8
--- NOTE | 2021-06-08 19:54 | HP.PCM_ITS ---
HPI - General General Date of Admission: 06/08/21 HPI Narrative 06/07/2021 SILVIO NO, is a 81 Female who presents to [facility] Department with dizziness. Dizzy, same feeling before she got pacemaker. Near syncope, vomiting x 1, nauseous. Creatinine 1.63, UA consistent with urinary tract infection, urine culture sent. Rocephin IV given. 06/07/2021 Admit to Hospital. Pacemaker interrogation showed runs of SVT. Echo, cycle cardiac enzymes, monitoring for near syncope. Clear liquid diet for nausea/vomiting. Rocephin IV for urinary tract infection. 06/07/2021 Echo EF 55 - 60%. Grade 1 diastolic dysfunction. Right ventricular systolic pressure 45mm HG. Mild-Moderate pulmonary hypertension. 06/08/2021 Urine culture growing > 100,000 gram negative rods. 06/08/2021 Admit to TCU with debility, here for rehabilitation, strengthening, prior to discharge home alone. [facility] Medical History Atherosclerotic heart disease of [place] coronary artery without angina pectoris Diabetes mellitus Essential hypertension History of left heart catheterization (04/03/13) Hyperlipidemia PVC (premature ventricular contraction) Sick sinus syndrome Sinus tachycardia Home Medications cholecalciferol (vitamin D3) 50 mcg (2,000 unit) capsule 50 mcg PO DAILY 07/25/20 [History Last Taken Unknown] vluramrp-ynw-betcw acid 0.4 mg-lycopene 300 mcg-lutein 250 mcg tablet 1 tab PO DAILY 07/25/20 [History Last Taken Unknown] amlodipine 10 mg PO DAILY 06/08/21 [History Last Taken Unknown] aspirin 81 mg PO DAILYCM 06/08/21 [History Last Taken Unknown] atorvastatin 40 mg PO QHS 06/08/21 [History Last Taken Unknown] brimonidine 1 drp LEFT EYE BID 06/08/21 [History Last Taken Unknown] calcium carbonate 500 mg PO BIDCM 06/08/21 [History Last Taken Unknown] cephalexin 500 mg PO BID 06/08/21 [History Last Taken Unknown] ferrous sulfate [FeroSul] 325 mg PO DAILYCM 06/08/21 [History Last Taken Unknown] insulin glargine-yfgn 18 unit SUBCUT DAILY 06/08/21 [History Last Taken Unknown] isosorbide mononitrate 60 mg PO BID 06/08/21 [History Last Taken Unknown] losartan 100 mg PO DAILY 06/08/21 [History Last Taken Unknown] timolol maleate 1 drp LEFT EYE BID 06/08/21 [History Last Taken Unknown] Allergy/AdvReac Type Severity Reaction Status Date / Time Sulfa (Sulfonamide Allergy Unknown Verified 06/07/21 15:44 Antibiotics) Family History Father CAD (coronary artery disease) Mother Diabetes Brother Lung cancer Brother Lung cancer Surgical History 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) H/O endarterectomy History of coronary artery bypass surgery (~06/13/13) History of tubal ligation 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) Social History household members: none Smoking Status: Never smoker alcohol intake: never substance use type: does not use ROS Constitutional Constitutional: Denies chills, fever(s) or weight gain ENT HEENT: Denies headache(s), nasal congestion or nasal discharge Cardiovascular Cardiovascular: Denies chest pain or palpitations Respiratory/Chest Respiratory/Chest: Denies cough, excessive phlegm production or shortness of breath with exertion Gastrointestinal Gastrointestinal: Denies abdominal pain, nausea or vomiting Genitourinary Genitourinary: Denies dysuria Musculoskeletal Musculoskeletal: Denies joint pain or joint swelling Integumentary Integumentary: Denies rash or wounds Neurologic Neurologic: Denies focal weakness, numbness or tingling Psychiatric Psychiatric: Denies anxiety, auditory hallucinations, depression, homicidal ideation or suicidal ideation Vital Signs Vital Signs Vital Signs: 06/08/21 18:38 Temperature 97.8 F Temperature Source Temporal Pulse Rate 85 Respiratory Rate 18 Blood Pressure 123/66 H Blood Pressure Mean 85 Blood Pressure Source Monitor Blood Pressure Position Semi-Fowlers Blood Pressure Location Right Arm Pulse Ox 95 Oxygen Delivery Method Room Air Weight Weight: 58.967 kg Body Mass Index (BMI) 23.8 Physical Exam Const alert General Appearance: cooperative HEENT normocephalic Eyes PERRL and EOMs intact bilaterally Neck supple, no JVD and no carotid bruits Resp normal respiratory effort, normal air movement and clear to auscultation bilaterally Cardio regular rate and regular rhythm GI normal to inspection, nondistended, normoactive bowel sounds, non-tender and non -distended Extremity normal capillary refill General Extremity: Negative for edema Skin no rashes or lesions noted General Skin Exam: no breakdown Psych affect normal Appearance: appropriate Results Lab / Micro Data Result Diagrams: 06/09/21 05:06 06/09/21 05:06 Assessment & Plan Assessment/Plan (1) Debility: (2) Dizziness: (3) Acute kidney injury: (4) Dehydration: (5) Urinary tract infection: (6) Alzheimer disease: (7) Coronary artery disease: (8) Sick sinus syndrome: (9) Diabetes mellitus: (10) Hypertension: (11) Hyperlipidemia: (12) Iron deficiency anemia: (13) Glaucoma: (14) Vitamin D deficiency: PLAN: 81 year old female with below past medical history hospitalized for dizziness secondary to dehydration, complicated by acute kidney injury, urinary tract infection, admitted to TCU with debility, here for rehabilitation, strengthening, prior to discharge home alone. * Debility - PT/OT. * Pain - Tylenol 1000mg q6h prn pain (1-10). * Bowel - Miralax 17gm daily, Senna/colace 1 tablet bid, Dulcolax 10mg daily prn. * Adult immunization - Administer pneumonia vaccine, flu vaccine, covid19 vaccine. * DVT prophylaxis - HAS-BLED score 2 intermediate risk of bleeding, [place] score 5 high risk of venous thromboembolism, overall risk intermediate, Hold DVT prophylaxis due to anemia. * Hypertension - Amlodipine 10mg daily. * Coronary Artery Disease - Losartan 100mg daily, Imdur 60mg bid, Aspirin 81mg daily. * Hyperlipidemia - Atorvastatin 40mg qhs. * Glaucoma - Brimonidine 1gtt os bid, Timolol 1gtt os bid. * GERD - TUMS 500mg bid. * GNR urinary tract infection - Keflex 500mg bid thru 06/14/2021, monitor C+S. * Iron deficiency anemia - Ferrous sulfate 325mg daily. * Diabetes Mellitus II - Glargine 18 units sc daily.
[2021-06-08] MEDS: Atorvastatin Calcium 40 MG Tablet PO (20:19)
[2021-06-08 22:38] VITALS: PULSE 85; O2SAT 95
[2021-06-09 05:49] LABS: Absolute Lymphocyte Count 1.64 X10^3/uL (0.83-4.51); Absolute Neutrophil Count 5.4 X10^3/uL (2.0-7.7); Basophil# 0.03 X10^3/uL; Basophil% 0.4 % (0-1); Eosinophil# 0.36 X10^3/uL; Eosinophils% 4.4 % (0-5); Hematocrit 32.8 % (37-47); Hemoglobin 10.9 g/dL (12.0-15.0); Lymphocyte # 1.64 X10^3/ul (0.83-4.51); Lymphocyte % 19.9 % (19-41); Mean Corp Hgb Conc 33.2 g/dL (32-36); Mean Corpuscular Hgb 32.7 pg (27.0-32.0); Mean Corpuscular Volume 98.5 fL (81-99); Mean Platelet Vol. 11.5 fl (6.2-12.0); Monocyte# 0.77 X10^3/uL; Monocyte% 9.3 % (0-10); NRBC Flagged by Analyzer 0 % (0-5); Neutrophil # 5.43 X10^3/uL (2.7-7.7); Neutrophil % 65.8 % (47-70); Platelet Count 206 K/mm3 (150-450); RBC Distribution Width CV 12.2 % (11.6-14.6); RBC Distribution Width SD 44.4 fl (35.1-43.9); Red Blood Count 3.33 M/mm3 (4.2-5.4); White Blood Count 8.3 K/mm3 (4.4-11.0)
[2021-06-09] MEDS: Isosorbide Mononitrate 60 MG Tablet PO ×2 (06:14→16:45)
[2021-06-09] MEDS: Losartan Potassium 100 MG Tablet PO (06:14)
[2021-06-09] MEDS: Cephalexin 500 MG Capsule PO (06:14)
[2021-06-09] MEDS: amLODIPine 10 MG Tablet PO (06:14)
[2021-06-09] MEDS: BRIMONIDINE 0.2% 5ML BOTTLE 1 DRP LEFT EYE ×2 (06:15→16:46)
[2021-06-09] MEDS: Insulin Glargine-YFGN 100 UNIT/ML Pen 18 UNIT SC (06:15)
[2021-06-09] MEDS: Timolol 0.25% 5ML OPTH.BTL 1 DRP LEFT EYE ×2 (06:15→16:47)
[2021-06-09] MEDS: Senna/Docusate Sodium 1 Tablet PO ×2 (06:19→16:45)
[2021-06-09] MEDS: Polyethylene Glycol 3350 17 GM PACKET PO (06:19)
[2021-06-09 06:21] LABS: Bedside Glucose 121 mg/dL (74-106)
[2021-06-09 06:23] LABS: Anion Gap 1 (5-15); BUN 22 mg/dL (7-18); BUN/Creat Ratio 17.5 RATIO (10-20); Calcium,Total 7.9 mg/dL (8.5-10.1); Chloride 112 mmol/L (98-107); Creatinine, Serum 1.26 mg/dL (0.55-1.02); EST Glomerular Filtration Rate 44 mL/min (>60); Est Glom Filt Rate - Afr Amer 53 mL/min (>60); Estimated Creatinine Clearance 28.63 ml/min; Glucose 117 mg/dL (74-106); Potassium 4.3 mmol/L (3.5-5.1); Sodium Level 142 mmol/L (136-145)
[2021-06-09] MEDS: 0.9% Saline Lock 10 ML Syringe IV (07:58)
[2021-06-09] MEDS: Ferrous Sulfate 325 MG Tablet PO (07:59)
[2021-06-09] MEDS: Aspirin 81 MG TAB.CHEW PO (07:59)
[2021-06-09] MEDS: Calcium Carbonate 500 MG Tablet PO ×2 (07:59→17:20)
--- NOTE | 2021-06-09 09:40 | PHA.CONS1_ITS ---
Progress Note - Pharmacy Subjective: TCU ADMISSION Objective: Allergies Sulfa (Sulfonamide Antibiotics) Allergy (Verified 06/07/21 15:44) Unknown Current Medications Generic Name Dose Route Start Last Admin Trade Name Roberto Carlos PRN Reason Stop Dose Admin Acetaminophen 1,000 mg 06/08/21 20:10 Acetaminophen 500 Mg Tablet PO Q6H PRN PRN Pain Score 1-10 Amlodipine Besylate 10 mg 06/09/21 06:00 06/09/21 06:14 Amlodipine 10 Mg Tablet PO 10 mg DAILY MARTHA Administration Aspirin 81 mg 06/09/21 08:00 06/09/21 07:59 Aspirin 81 Mg Tab.Chew PO 81 mg DAILYCM MARTHA Administration Atorvastatin Calcium 40 mg 06/08/21 22:00 06/08/21 20:19 Atorvastatin Calcium 40 Mg Tablet PO 40 mg QHS MARTHA Administration Bisacodyl 10 mg 06/08/21 20:10 Bisacodyl 5 Mg Tablet PO DAILY PRN Constipation Brimonidine Tartrate 1 drp 06/09/21 06:00 06/09/21 06:15 Brimonidine 0.2% 5ml Bottle LEFT EYE 1 drp BID MARTHA Administration Calcium Carbonate 500 mg 06/09/21 08:00 06/09/21 07:59 Calcium Carbonate 500 Mg Tablet PO 500 mg BIDCM MARTHA Administration Cephalexin 500 mg 06/09/21 06:00 06/09/21 06:14 Cephalexin 500 Mg Capsule PO 06/14/21 23:59 500 mg BID MARTHA Administration Ferrous Sulfate 325 mg 06/09/21 08:00 06/09/21 07:59 Ferrous Sulfate 325 Mg Tablet PO 325 mg DAILY MARTHA Administration Isosorbide Mononitrate 60 mg 06/09/21 06:00 06/09/21 06:14 Isosorbide Mononitrate 60 Mg Tablet PO 60 mg BID MARTHA Administration Losartan Potassium 100 mg 06/09/21 06:00 06/09/21 06:14 Losartan Potassium 100 Mg Tablet PO 100 mg DAILY MARTHA Administration Polyethylene Glycol 17 gm 06/09/21 06:00 06/09/21 06:19 Polyethylene Glycol 3350 17 Gm Packet PO 17 gm DAILY MARTHA Administration Senna/Docusate Sodium 1 tablet 06/09/21 06:00 06/09/21 06:19 Senna/Docusate Sodium 1 Tablet PO 1 tablet BID MARTHA Administration Sodium Chloride 10 - 40 ml 06/08/21 18:59 06/09/21 07:58 0.9% Saline Lock 10 Ml Syringe IV 10 ml UD PRN Administration SALINE FLUSH Timolol Maleate 1 drp 06/09/21 06:00 06/09/21 06:15 Timolol 0.25% 5ml Opth.Btl LEFT EYE 1 applic BID MARTHA Administration Tuberculin PPD 0.1 ml 06/09/21 10:00 Tuberculin,Purif.Prot.Deriv. 50 Tu/Ml Vial ID 06/09/21 10:01 X1 ONE Tuberculin PPD 0.1 ml 06/16/21 10:00 Tuberculin,Purif.Prot.Deriv. 50 Tu/Ml Vial ID 06/16/21 10:01 X1 ONE Problem List (Last Reviewed 06/08/21 @ 19:[address] Mc Neri MD) Vitamin D deficiency (Acute) Glaucoma (Acute) Iron deficiency anemia (Acute) Hyperlipidemia (Acute) Hypertension (Chronic) Diabetes mellitus (Acute) Sick sinus syndrome (Acute) Coronary artery disease (Acute) Alzheimer disease (Acute) Urinary tract infection (Acute) Dehydration (Acute) Acute kidney injury (Acute) Dizziness (Acute) Debility (Acute) Vital Signs Temp Pulse Resp BP Pulse Ox 97.8 F 85 18 123/66 H 95 06/08/21 18:38 06/08/21 22:38 06/08/21 18:38 06/08/21 18:38 06/08/21 22:38 Oxygen Delivery Method Room Air Weight: 58.967 kg Body Mass Index (BMI) 23.8 Sodium 142 mmol/L (136-145) 06/09/21 05:06 Potassium 4.3 mmol/L (3.5-5.1) 06/09/21 05:06 Chloride 112 mmol/L (98-107) H 06/09/21 05:06 Carbon Dioxide 29.0 mmol/L (21.0-32.0) 06/09/21 05:06 Anion Gap 1 (5-15) L 06/09/21 05:06 BUN 22 mg/dL (7-18) H 06/09/21 05:06 Creatinine 1.26 mg/dL (0.55-1.02) H 06/09/21 05:06 Est GFR (MDRD) Af Amer 53 mL/min (>60) L 06/09/21 05:06 Est GFR (MDRD) Non-Af 44 mL/min (>60) L 06/09/21 05:06 BUN/Creatinine Ratio 17.5 RATIO (10-20) 06/09/21 05:06 Glucose 117 mg/dL (74-106) H 06/09/21 05:06 Assessment/Plan: 1. Pain: Tylenol 1000mg PO Q6h PRN pain 1-10. Please continue to monitor for increased/decreased S/S pain, PRN medication usage. --The patient has not utilized any doses since admission at this time 2. CAD/ HTN: Amlodipine 10mg PO Daily, Aspirin 81mg PO Daily, Lipitor 40mg PO QHS, Imdur 60mg PO BID, Losartan 100mg PO Daily. Please continue to monitor BP (last 123/66), pulse (last 85 BPM), S/S bleeding/bruising (monitor close given hx of anemia), H/H, lipid panel annually or sooner as clinically indicated. 3. Type II Diabetes: Insulin Glargine-YFGN 18 unit SC Daily. Please continue to monitor for S/S hypoglycemia, BG levels, A1c every 3 months as clinically indic ated. Last A1c was 6.2% in 03/2021, can consider obtaining another level, as it has been 3 months since last check, thank you. 4. Iron Deficiency Anemia: Ferrous sulfate 325mg PO Daily. Please continue to monitor H/H (last Hgb 10.8 and Hct 32.8 on 06/09/21), iron studies as clinically indicated, S/S bleeding. 5. Glaucoma: Brimonidine 1 gtt Left Eye BID, Timolol 1 gtt Left eye BID. Please continue to monitor and follow up with ophthalmology as clinically indicated. 6. GERD: Tums 500mg PO BIDCM. Please continue to monitor for medication effectiveness, reduction in GERD symptoms. May also encourage non-pharmacologic treatments to help minimize GERD flare-ups. 7. UTI: Keflex 500mg PO BID thru 06/14/21. Current UCX growing ESBL(+) E.coli, not sensitive to keflex. Please consider modifying antibiotic therapy to complete course. Of note, patient's culture results are sensitive to fluoroquinolones, would not recommend Macrobid as pt's renal function is < 30mL/min. Psychotropic Medications: None Unnecessary Medications: None Bowel Regimen: Miralax 17g PO Daily, Senna/Docusate 1 tab PO BID, Dulcolax 10mg PO Daily PRN. Please continue to monitor for increased/decreased constipation and/or diarrhea. Date of Note:: 06/09/21
[2021-06-09] MEDS: Tuberculin,Purif.prot.deriv. 50 TU/ML Vial 0.1 ML ID (11:04)
[2021-06-09 11:21] LABS: Bedside Glucose 163 mg/dL (74-106)
[2021-06-09 14:17] VITALS: BP 120/50; PULSE 81; RESP 16; TEMP 36.1; O2SAT 92
--- NOTE | 2021-06-09 16:05 | CASEMGMT ---
Social Work Met with patient to complete initial assessment. Introduced self and role. Pt wishes to have son be primary contact and remain involved in updates/DC plans. Discussed code status and MOLST form. Pt confirmed full code. MOLST communicated to Dr. placed in chart. Explained Medicare benefit. Encouraged to contact secondary insurance to ensure copay coverage. The goal is for pt to return home at [facility]. SANDRA MitchellW
[2021-06-09 16:15] LABS: Bedside Glucose 119 mg/dL (74-106)
[2021-06-09] MEDS: Ciprofloxacin 250 MG Tablet PO (16:45)
[2021-06-09] MEDS: Atorvastatin Calcium 40 MG Tablet PO (20:57)
[2021-06-09 22:21] LABS: Bedside Glucose 136 mg/dL (74-106)
[2021-06-10] MEDS: 0.9% Saline Lock 10 ML Syringe IV (05:46)
[2021-06-10] MEDS: Ciprofloxacin 250 MG Tablet PO ×2 (05:47→17:53)
[2021-06-10] MEDS: Polyethylene Glycol 3350 17 GM PACKET PO (05:47)
[2021-06-10] MEDS: Losartan Potassium 100 MG Tablet PO (05:47)
[2021-06-10] MEDS: Isosorbide Mononitrate 60 MG Tablet PO ×2 (05:47→17:10)
[2021-06-10] MEDS: amLODIPine 10 MG Tablet PO (05:47)
[2021-06-10] MEDS: Senna/Docusate Sodium 1 Tablet PO ×2 (05:47→17:10)
[2021-06-10 05:50] VITALS: BP 135/68; PULSE 77
[2021-06-10] MEDS: Timolol 0.25% 5ML OPTH.BTL 1 DRP LEFT EYE ×2 (05:50→17:52)
[2021-06-10] MEDS: BRIMONIDINE 0.2% 5ML BOTTLE 1 DRP LEFT EYE ×2 (05:51→17:10)
[2021-06-10] MEDS: Insulin Glargine-YFGN 100 UNIT/ML Pen 18 UNIT SC (06:54)
[2021-06-10 07:05] LABS: Bedside Glucose 122 mg/dL (74-106)
[2021-06-10] MEDS: Ferrous Sulfate 325 MG Tablet PO (07:38)
[2021-06-10] MEDS: Calcium Carbonate 500 MG Tablet PO ×2 (07:38→17:09)
[2021-06-10] MEDS: Aspirin 81 MG TAB.CHEW PO (07:38)
[2021-06-10 11:56] LABS: Bedside Glucose 117 mg/dL (74-106)
[2021-06-10 13:44] VITALS: BP 133/56; PULSE 82; RESP 16; TEMP 36.2; O2SAT 93
--- NOTE | 2021-06-10 13:55 | NURSING ---
PER ANDER/THERAPY PT IS UP AB PAMELA IN ROOM WITH WALKER.
[2021-06-10] MEDS: DIFLUPREDNATE 5 ML DROPS 1 DRP OPHTHALMIC (17:13)
[2021-06-10 20:00] VITALS: O2SAT 92
[2021-06-10] MEDS: Atorvastatin Calcium 40 MG Tablet PO (20:05)
[2021-06-11] MEDS: Polyethylene Glycol 3350 17 GM PACKET PO (05:28)
[2021-06-11] MEDS: Ciprofloxacin 250 MG Tablet PO ×2 (05:28→17:40)
[2021-06-11] MEDS: Losartan Potassium 100 MG Tablet PO (05:28)
[2021-06-11] MEDS: amLODIPine 10 MG Tablet PO (05:28)
[2021-06-11] MEDS: Senna/Docusate Sodium 1 Tablet PO ×2 (05:28→17:40)
[2021-06-11] MEDS: Isosorbide Mononitrate 60 MG Tablet PO ×2 (05:28→17:40)
[2021-06-11] MEDS: Timolol 0.25% 5ML OPTH.BTL 1 DRP LEFT EYE ×2 (05:30→17:43)
[2021-06-11] MEDS: DIFLUPREDNATE 5 ML DROPS 1 DRP OPHTHALMIC ×2 (05:31→17:42)
[2021-06-11] MEDS: BRIMONIDINE 0.2% 5ML BOTTLE 1 DRP LEFT EYE ×2 (05:34→17:41)
[2021-06-11 06:26] LABS: Bedside Glucose 128 mg/dL (74-106)
[2021-06-11] MEDS: Insulin Glargine-YFGN 100 UNIT/ML Pen 18 UNIT SC (06:36)
[2021-06-11] MEDS: Aspirin 81 MG TAB.CHEW PO (07:35)
[2021-06-11] MEDS: Ferrous Sulfate 325 MG Tablet PO (07:35)
[2021-06-11] MEDS: Calcium Carbonate 500 MG Tablet PO ×2 (07:35→16:41)
[2021-06-11 16:00] VITALS: BP 140/65; PULSE 57; RESP 16; TEMP 36.4; O2SAT 90
[2021-06-11] MEDS: Atorvastatin Calcium 40 MG Tablet PO (19:51)
[2021-06-12 05:05] VITALS: BP 150/71; PULSE 87
[2021-06-12] MEDS: DIFLUPREDNATE 5 ML DROPS 1 DRP OPHTHALMIC ×2 (05:07→16:42)
[2021-06-12] MEDS: Timolol 0.25% 5ML OPTH.BTL 1 DRP LEFT EYE ×2 (05:07→16:44)
[2021-06-12] MEDS: amLODIPine 10 MG Tablet PO (05:07)
[2021-06-12] MEDS: Losartan Potassium 100 MG Tablet PO (05:07)
[2021-06-12] MEDS: BRIMONIDINE 0.2% 5ML BOTTLE 1 DRP LEFT EYE ×2 (05:07→16:43)
[2021-06-12] MEDS: Senna/Docusate Sodium 1 Tablet PO ×2 (05:07→16:41)
[2021-06-12] MEDS: Isosorbide Mononitrate 60 MG Tablet PO ×2 (05:07→16:41)
[2021-06-12] MEDS: Polyethylene Glycol 3350 17 GM PACKET PO (05:07)
[2021-06-12] MEDS: Ciprofloxacin 250 MG Tablet PO ×2 (05:07→16:41)
[2021-06-12 06:26] LABS: Bedside Glucose 118 mg/dL (74-106)
[2021-06-12] MEDS: Insulin Glargine-YFGN 100 UNIT/ML Pen 18 UNIT SC (06:35)
[2021-06-12] MEDS: Ferrous Sulfate 325 MG Tablet PO (08:43)
[2021-06-12] MEDS: Calcium Carbonate 500 MG Tablet PO ×2 (08:43→16:40)
[2021-06-12] MEDS: Aspirin 81 MG TAB.CHEW PO (08:43)
[2021-06-12 14:31] VITALS: BP 130/57; PULSE 87; RESP 18; TEMP 36.6; O2SAT 94
[2021-06-12] MEDS: Atorvastatin Calcium 40 MG Tablet PO (20:00)
[2021-06-13] MEDS: Ciprofloxacin 250 MG Tablet PO ×2 (06:04→18:12)
[2021-06-13] MEDS: Isosorbide Mononitrate 60 MG Tablet PO ×2 (06:04→17:22)
[2021-06-13] MEDS: amLODIPine 10 MG Tablet PO (06:04)
[2021-06-13] MEDS: Senna/Docusate Sodium 1 Tablet PO ×2 (06:04→17:18)
[2021-06-13] MEDS: Losartan Potassium 100 MG Tablet PO (06:04)
[2021-06-13] MEDS: BRIMONIDINE 0.2% 5ML BOTTLE 1 DRP LEFT EYE ×2 (06:06→17:19)
[2021-06-13] MEDS: DIFLUPREDNATE 5 ML DROPS 1 DRP OPHTHALMIC ×2 (06:06→17:21)
[2021-06-13] MEDS: Timolol 0.25% 5ML OPTH.BTL 1 DRP LEFT EYE ×2 (06:06→17:23)
[2021-06-13 06:20] LABS: Bedside Glucose 99 mg/dL (74-106)
[2021-06-13] MEDS: Insulin Glargine-YFGN 100 UNIT/ML Pen 18 UNIT SC (08:03)
[2021-06-13] MEDS: Calcium Carbonate 500 MG Tablet PO ×2 (08:05→17:17)
[2021-06-13] MEDS: Ferrous Sulfate 325 MG Tablet PO (08:05)
[2021-06-13] MEDS: Aspirin 81 MG TAB.CHEW PO (08:05)
--- NOTE | 2021-06-13 09:52 | CASEMGMT ---
Social Work Met with pt to follow on request for DC. IDT agrees to setting DC date as pt is adlib in room. Pt requests SW contact son to set DC date as it depends on his work schedule. Pt denies need for continued therapy or DME. Pt will continue with HEP. Spoke with son - son requesting DC 06/16 in the afternoon. IDT agreeable. Son to transport. Plan: DC home alone 06/16 with no needs SANDRA Mitchell ADULT DAYCARE COORDINATOR
[2021-06-13 10:30] VITALS: PULSE 86; RESP 18; O2SAT 93
[2021-06-13] MEDS: COVID-19 VACC, MRNA(PFIZER)/PF 30 MCG/0.3 ML SYRINGE IM (13:04)
--- NOTE | 2021-06-13 13:10 | NURSING ---
PFIZER BOOSTER GIVEN TO PT IN LEFT DELT. PT TOLERATED WELL.
[2021-06-13 13:53] VITALS: BP 132/54; PULSE 82; RESP 16; TEMP 36.5; O2SAT 96
--- NOTE | 2021-06-13 14:34 | NURSING ---
Addendum entered by Veto Soler 06/13/21 14:42: PT MUST USE WALKER IN ROOM AT NIGHT PER THERAPY. Original Note: PER ANDER/JUSTINE,PT CAN BE UP AB PAMELA IN ROOM WITH OUT A DEVISE AND OUT IN THE TAYLOR WITH A WALKER. RN AWARE
--- NOTE | 2021-06-13 19:53 | DS.PCM_ITS ---
Providers Date of Admission: 06/08/21 Primary Care Physician: Dr. Rosalino Del Valle DO Reason For Visit: SYNCOPE,NAUSEA Diagnosis Discharge Diagnosis (1) Debility: Status: Acute Code(s): R53.81 - Other malaise (2) Dizziness: Status: Acute Code(s): R42 - Dizziness and giddiness (3) Acute kidney injury: Status: Acute Code(s): N17.9 - Acute kidney failure, unspecified (4) Dehydration: Status: Acute Code(s): E86.0 - Dehydration (5) Urinary tract infection: Status: Acute Code(s): N39.0 - Urinary tract infection, site not specified (6) Alzheimer disease: Status: Acute Code(s): G30.9 - Alzheimer's disease, unspecified; F02.80 - Dementia in other diseases classified elsewhere without behavioral disturbance (7) Coronary artery disease: Status: Acute Code(s): I25.10 - Atherosclerotic heart disease of [place] coronary artery without angina pectoris (8) Sick sinus syndrome: Status: Acute Code(s): I49.5 - Sick sinus syndrome (9) Diabetes mellitus: Status: Acute Code(s): E11.9 - Type 2 diabetes mellitus without complications (10) Hypertension: Status: Chronic Code(s): I10 - Essential (primary) hypertension (11) Hyperlipidemia: Status: Acute Code(s): E78.5 - Hyperlipidemia, unspecified (12) Iron deficiency anemia: Status: Acute Code(s): D50.9 - Iron deficiency anemia, unspecified (13) Glaucoma: Status: Acute Code(s): H40.9 - Unspecified glaucoma (14) Vitamin D deficiency: Status: Acute Code(s): E55.9 - Vitamin D deficiency, unspecified Medications at Discharge Home Medications cholecalciferol (vitamin D3) 50 mcg (2,000 unit) capsule 50 mcg PO DAILY 07/25/20 rdejenja-qqc-jrmnb acid 0.4 mg-lycopene 300 mcg-lutein 250 mcg tablet 1 tab PO DAILY 07/25/20 amlodipine 10 mg PO DAILY 06/08/21 aspirin 81 mg PO DAILYCM 06/08/21 atorvastatin 40 mg PO QHS 06/08/21 brimonidine 1 drp LEFT EYE BID 06/08/21 calcium carbonate 500 mg PO BIDCM 06/08/21 ferrous sulfate [FeroSul] 325 mg PO DAILYCM 06/08/21 insulin glargine-yfgn 18 unit SUBCUT DAILY 06/08/21 isosorbide mononitrate 60 mg PO BID 06/08/21 losartan 100 mg PO DAILY 06/08/21 timolol maleate 1 drp LEFT EYE BID 06/08/21 Hospital Course Operations None Procedures None Summary of Care Provided Minutes Spent on Discharge: 35 Hospital Course: 81 year old female with below past medical history hospitalized for dizziness secondary to dehydration, complicated by acute kidney injury, urinary tract infection, admitted to TCU with debility, here for rehabilitation, strengthening, prior to discharge home alone. Discharge home alone 06/16/2021, no needs. Physical Exam Const alert General Appearance: cooperative HEENT normocephalic Eyes PERRL and EOMs intact bilaterally Neck supple, no JVD and no carotid bruits Resp normal respiratory effort, normal air movement and clear to auscultation bilat erally Cardio regular rate and regular rhythm GI normal to inspection, nondistended, normoactive bowel sounds, non-tender and non-distended Extremity normal capillary refill General Extremity: Negative for edema Skin no rashes or lesions noted General Skin Exam: no breakdown Psych affect normal Appearance: appropriate Weight / BMI Weight Weight: 68.663 kg Body Mass Index (BMI) 23.8 ABG / Lab / Microbiology Data Result Diagrams: 06/09/21 05:06 06/09/21 05:06 Laboratory: Laboratory Results - last 24 hr 06/13/21 06:03: POC Glucose 99 D/C Instructions Discharge Diet: No restrictions Discharge Activity: Return to Normal Activity, May Shower and Use Walker Weight Bearing Status: Weight bearing as tolerated Call your doctor if you observe: Fever of 101 or Higher, Inability to urinate, Inability to have a bowel movement, Shortness of breath, Dizziness, Fainting spells, Swelling in the ankles, Chest pain and Uncontrolled pain Additional Instructions: Discharge home alone 06/16/2021, no needs. Meaningful Use Info Meaningful Use Diagnoses (Choose all that apply): None applicable Discharge Plan Admission Admit Date/Time: 06/08/21 18:34 Primary Reason for Your Visit: Debility. Attending Provider: Mc Neri Chi Primary Care Provider: Rosalino Del Valle Instructions Additional Instructions / Restrictions: Discharge home alone 06/16/2021, no needs. Discharge Orders/Prescriptions Prescriptions: Continued cholecalciferol (vitamin D3) 50 mcg (2,000 unit) capsule 50 mcg PO DAILY RF: 0 Centrum Silver 0.4-300-250 mg-mcg-mcg tablet 1 tab PO DAILY RF: 0 atorvastatin 40 mg tablet 40 mg PO QHS RF: 0 isosorbide mononitrate 60 mg tablet extended release 24 hr 60 mg PO BID RF: 0 amlodipine 10 mg tablet 10 mg PO DAILY RF: 0 timolol maleate 0.25 % drops 1 drp LEFT EYE BID RF: 0 ferrous sulfate [FeroSul] 325 mg (65 mg iron) tablet 325 mg PO DAILYCM RF: 0 calcium carbonate 200 mg calcium (500 mg) tablet,chewable 500 mg PO BIDCM RF: 0 brimonidine 0.2 % drops 1 drp LEFT EYE BID RF: 0 aspirin 81 mg tablet,chewable 81 mg PO DAILYCM RF: 0 losartan 100 mg tablet 100 mg PO DAILY RF: 0 insulin glargine-yfgn 100 unit/mL (3 mL) insulin pen 18 unit subcut DAILY RF: 0 Discontinued cephalexin 500 mg capsule 500 mg PO BID RF: 0 Referrals / Follow Up: Rosalino Del Valle DO [Primary Care Provider] - Disposition Disposition (needs filled in before D/C Order can be placed): Home, Self Care
[2021-06-13] MEDS: Atorvastatin Calcium 40 MG Tablet PO (20:03)
[2021-06-14] MEDS: Isosorbide Mononitrate 60 MG Tablet PO ×2 (06:12→16:56)
[2021-06-14] MEDS: DIFLUPREDNATE 5 ML DROPS 1 DRP OPHTHALMIC ×2 (06:12→16:58)
[2021-06-14] MEDS: Timolol 0.25% 5ML OPTH.BTL 1 DRP LEFT EYE ×2 (06:12→16:56)
[2021-06-14] MEDS: amLODIPine 10 MG Tablet PO (06:12)
[2021-06-14] MEDS: Losartan Potassium 100 MG Tablet PO (06:12)
[2021-06-14] MEDS: Senna/Docusate Sodium 1 Tablet PO (06:12)
[2021-06-14] MEDS: Ciprofloxacin 250 MG Tablet PO ×2 (06:12→16:57)
[2021-06-14] MEDS: BRIMONIDINE 0.2% 5ML BOTTLE 1 DRP LEFT EYE ×2 (06:13→16:55)
[2021-06-14 06:46] LABS: Bedside Glucose 112 mg/dL (74-106)
--- NOTE | 2021-06-14 07:36 | NS ---
Completed Dietary MD assessment for JOSELYN 06/15/21 today.
[2021-06-14] MEDS: Insulin Glargine-YFGN 100 UNIT/ML Pen 18 UNIT SC (07:45)
[2021-06-14] MEDS: Aspirin 81 MG TAB.CHEW PO (07:47)
[2021-06-14] MEDS: Calcium Carbonate 500 MG Tablet PO ×2 (07:47→16:55)
[2021-06-14] MEDS: Ferrous Sulfate 325 MG Tablet PO (07:47)
--- NOTE | 2021-06-14 09:55 | CASEMGMT ---
Social Work IDT met with patient and son for care plan meeting. Discussed patient's progress in PT/OT and nursing. Pt is adlib in facility, not using an AD. Pt to DC home alone 06/16 and denies any continued therapy or DME. Son to transport. Emerald Adler, NEGATIVE NOTCHER HAT BRUSHER MACHINE
--- NOTE | 2021-06-14 13:35 | NURSING ---
Pt to discharge saturday, pt states she usually gets her toe nails clipped by her family doctor and her son has set up an appointment already. Podiatry consult d/c
[2021-06-14 16:00] VITALS: BP 141/66; PULSE 99; RESP 21; TEMP 36.5; O2SAT 90
[2021-06-14] MEDS: Atorvastatin Calcium 40 MG Tablet PO (19:49)
[2021-06-15] MEDS: BRIMONIDINE 0.2% 5ML BOTTLE 1 DRP LEFT EYE ×2 (04:53→17:40)
[2021-06-15] MEDS: Isosorbide Mononitrate 60 MG Tablet PO ×2 (04:53→17:37)
[2021-06-15] MEDS: amLODIPine 10 MG Tablet PO (04:53)
[2021-06-15] MEDS: Losartan Potassium 100 MG Tablet PO (04:53)
[2021-06-15] MEDS: Ciprofloxacin 250 MG Tablet PO ×2 (04:53→18:47)
[2021-06-15] MEDS: Timolol 0.25% 5ML OPTH.BTL 1 DRP LEFT EYE ×2 (04:54→17:38)
[2021-06-15] MEDS: DIFLUPREDNATE 5 ML DROPS 1 DRP OPHTHALMIC ×2 (04:54→17:39)
[2021-06-15 04:56] VITALS: BP 122/71; PULSE 72; RESP 15; TEMP 36.7; O2SAT 94
[2021-06-15 06:36] LABS: Bedside Glucose 93 mg/dL (74-106)
[2021-06-15] MEDS: Insulin Glargine-YFGN 100 UNIT/ML Pen 18 UNIT SC (08:14)
[2021-06-15] MEDS: Aspirin 81 MG TAB.CHEW PO (08:16)
[2021-06-15] MEDS: Ferrous Sulfate 325 MG Tablet PO (08:16)
[2021-06-15] MEDS: Calcium Carbonate 500 MG Tablet PO ×2 (08:16→17:36)
--- NOTE | 2021-06-15 10:21 | CASEMGMT ---
Social Work BIMS and PHQ-9 completed for MDS assessment. Emerald Adler, OFFSET LITHOGRAPHIC PRESS SETTER IT QUALITY ASSURANCE ANALYST
[2021-06-15 10:50] VITALS: PULSE 93; RESP 18; O2SAT 91
--- NOTE | 2021-06-15 11:42 | NURSING ---
M1A1 Tank Crewman Note: Interview for Section F of MDS complete and information entered.
[2021-06-15 13:17] VITALS: BP 117/60; PULSE 86; RESP 18; TEMP 36.6; O2SAT 98
[2021-06-15] MEDS: Atorvastatin Calcium 40 MG Tablet PO (19:52)
[2021-06-16] MEDS: Isosorbide Mononitrate 60 MG Tablet PO (05:07)
[2021-06-16] MEDS: Losartan Potassium 100 MG Tablet PO (05:07)
[2021-06-16] MEDS: Ciprofloxacin 250 MG Tablet PO (05:07)
[2021-06-16] MEDS: DIFLUPREDNATE 5 ML DROPS 1 DRP OPHTHALMIC (05:07)
[2021-06-16] MEDS: Timolol 0.25% 5ML OPTH.BTL 1 DRP LEFT EYE (05:07)
[2021-06-16] MEDS: amLODIPine 10 MG Tablet PO (05:07)
[2021-06-16] MEDS: BRIMONIDINE 0.2% 5ML BOTTLE 1 DRP LEFT EYE (05:09)
[2021-06-16 05:48] LABS: Absolute Lymphocyte Count 1.78 X10^3/uL (0.83-4.51); Basophil# 0.04 X10^3/uL; Basophil% 0.5 % (0-1); Eosinophil# 0.61 X10^3/uL; Eosinophils% 7.3 % (0-5); Hemoglobin 10.9 g/dL (12.0-15.0); Lymphocyte # 1.78 X10^3/ul (0.83-4.51); Lymphocyte % 21.3 % (19-41); Mean Corpuscular Hgb 32.5 pg (27.0-32.0); Mean Corpuscular Volume 98.5 fL (81-99); Mean Platelet Vol. 10.3 fl (6.2-12.0); Monocyte# 0.89 X10^3/uL; Monocyte% 10.6 % (0-10); NRBC Flagged by Analyzer 0 % (0-5); Neutrophil # 5.03 X10^3/uL (2.7-7.7); Neutrophil % 60.1 % (47-70); Platelet Count 259 K/mm3 (150-450); RBC Distribution Width CV 12.7 % (11.6-14.6); RBC Distribution Width SD 45.5 fl (35.1-43.9); Red Blood Count 3.35 M/mm3 (4.2-5.4); White Blood Count 8.4 K/mm3 (4.4-11.0)
[2021-06-16 06:13] LABS: Anion Gap 2 (5-15); BUN 31 mg/dL (7-18); BUN/Creat Ratio 22.6 RATIO (10-20); Calcium,Total 8.3 mg/dL (8.5-10.1); Chloride 109 mmol/L (98-107); Creatinine, Serum 1.37 mg/dL (0.55-1.02); EST Glomerular Filtration Rate 40 mL/min (>60); Est Glom Filt Rate - Afr Amer 48 mL/min (>60); Estimated Creatinine Clearance 26.34 ml/min; Glucose 93 mg/dL (74-106); Potassium 4.2 mmol/L (3.5-5.1); Sodium Level 140 mmol/L (136-145)
[2021-06-16 06:36] LABS: Bedside Glucose 106 mg/dL (74-106)
[2021-06-16] MEDS: Aspirin 81 MG TAB.CHEW PO (08:05)
[2021-06-16] MEDS: Ferrous Sulfate 325 MG Tablet PO (08:05)
[2021-06-16] MEDS: Insulin Glargine-YFGN 100 UNIT/ML Pen 18 UNIT SC (08:05)
[2021-06-16] MEDS: Calcium Carbonate 500 MG Tablet PO (08:06)
[2021-06-16 14:16] VITALS: BP 142/75; PULSE 79; RESP 16; TEMP 36.4; O2SAT 94
--- NOTE | 2021-06-20 15:08 | MDS.RN ---
Information for the mds was obtained from review of the clinical record, interview of resident, staff, and direct observation of resident's care.
== END 2021-06-16 14:15 | disposition home or self-care (01) | DRG 690 ==
PROVIDERS: Admitting Provider Family Medicine Geriatric Medicine; PCP Student in an Organized Health Care Education/Training Program; Visit Provider Family Medicine Geriatric Medicine
DX: N39.0 Urinary tract infection, site not specified (principal); I27.20 Pulmonary hypertension, unspecified; E11.39 Type 2 diabetes mellitus with other diabetic ophthalmic complication; F02.80 Dementia in other diseases classified elsewhere, unspecified severity, without behavioral disturbance, psychotic disturbance, mood disturbance, and anxiety; D50.9 Iron deficiency anemia, unspecified; E55.9 Vitamin D deficiency, unspecified; E78.5 Hyperlipidemia, unspecified; G30.9 Alzheimer's disease, unspecified; I25.10 Atherosclerotic heart disease of native coronary artery without angina pectoris; I10 Essential (primary) hypertension; K21.9 Gastro-esophageal reflux disease without esophagitis; H40.9 Unspecified glaucoma; Z95.0 Presence of cardiac pacemaker; Z79.899 Other long term (current) drug therapy; Z79.82 Long term (current) use of aspirin; Z23 Encounter for immunization
CPT/HCPCS: 0004A; 36415; 80048; 82962; 85025; 87426; 91300; 97110; 97116; 97162; 97166; 97530; 97535; 97802; A4216

== ENCOUNTER → 2021-06-23 | Outpatient (CLI) | payer MEDICARE, OTHER, SELFPAY ==
[2021-06-23 11:25] LABS: Color, Urine Yellow (Yellow); Glucose, Dipstick Normal (Normal); Ketone-Dipstick Negative (Negative); Leukocyte Esterase-Dipstick 25 /ul (Negative); Nitrite-Dipstick Negative (Negative); Occult Blood-Urine Negative /ul (Negative); Protein-Dipstick Negative (Negative); Urine Bilirubin Dipstick Negative (Negative); Urine Clarity Sl. Cloudy (Clear); Urine Urobilinogen Normal (Normal)
== END | disposition home or self-care (01) ==
LOC: LAB 11:06
PROVIDERS: PCP Student in an Organized Health Care Education/Training Program; Referring Provider Student in an Organized Health Care Education/Training Program; Visit Provider Student in an Organized Health Care Education/Training Program
DX: N39.0 Urinary tract infection, site not specified (principal)
CPT/HCPCS: 81002; 87086; 87088

== ENCOUNTER → 2021-09-25 | Outpatient (CLI) | payer MEDICARE, OTHER, SELFPAY ==
[2021-09-25 09:26] LABS: Hematocrit 37.6 % (37-47); Hemoglobin 12.2 g/dL (12.0-15.0); Mean Corp Hgb Conc 32.4 g/dL (32-36); Mean Corpuscular Hgb 31.9 pg (27.0-32.0); Mean Corpuscular Volume 98.4 fL (81-99); Mean Platelet Vol. 10.5 fl (6.2-12.0); Platelet Count 285 K/mm3 (150-450); RBC Distribution Width CV 13.4 % (11.6-14.6); Red Blood Count 3.82 M/mm3 (4.2-5.4); White Blood Count 10.7 K/mm3 (4.4-11.0)
[2021-09-25 10:07] LABS: ALB/GLOB Ratio 0.8 RATIO (0.9-2.4); AST(SGOT) 14 U/L (15-37); Alanine Aminotransfer ALT/SGPT 23 U/L (13-56); Albumin, Serum 3.2 g/dL (3.2-5.0); Alkaline Phosphatase 88 U/L (45-117); Anion Gap 9 (5-15); BUN 22 mg/dL (7-18); BUN/Creat Ratio 19.3 RATIO (10-20); Bilirubin, Direct 0.12 mg/dL (0.00-0.30); Calcium,Total 8.6 mg/dL (8.5-10.1); Chloride 107 mmol/L (98-107); Creatinine, Serum 1.14 mg/dL (0.55-1.02); EST Glomerular Filtration Rate 49 mL/min (>60); Est Glom Filt Rate - Afr Amer 59 mL/min (>60); Ferritin 71 ng/mL (8-252); Globulin 4.2 g/dL (2.2-4.2); Glucose 107 mg/dL (74-106); Magnesium 3.1 mg/dL (1.6-2.6); Phosphorus 2.7 mg/dL (2.5-4.9); Potassium 4.7 mmol/L (3.5-5.1); Protein, Total 7.4 g/dL (6.4-8.2); Sodium Level 140 mmol/L (136-145); Thyroid Stim Hormone (TSH) 1.68 uIU/mL (0.358-3.74)
[2021-09-25 10:09] LABS: PTHIN 241.8 pg/mL (18.4-80.1)
== END | disposition home or self-care (01) ==
LOC: LAB 08:22
PROVIDERS: PCP Student in an Organized Health Care Education/Training Program; Referring Provider Student in an Organized Health Care Education/Training Program; Visit Provider Student in an Organized Health Care Education/Training Program
DX: M81.0 Age-related osteoporosis without current pathological fracture (principal); E11.22 Type 2 diabetes mellitus with diabetic chronic kidney disease; N25.81 Secondary hyperparathyroidism of renal origin; N18.30 Chronic kidney disease, stage 3 unspecified; D63.8 Anemia in other chronic diseases classified elsewhere
CPT/HCPCS: 36415; 80053; 82248; 82306; 82728; 83735; 83970; 84100; 84443; 85027

== ENCOUNTER → 2022-02-07 | Outpatient (CLI) | payer MEDICARE, OTHER, SELFPAY ==
[2022-02-07 09:03] LABS: Hematocrit 32.4 % (37-47); Hemoglobin 10.3 g/dL (12.0-15.0); Mean Corp Hgb Conc 31.8 g/dL (32-36); Mean Corpuscular Hgb 30.5 pg (27.0-32.0); Mean Corpuscular Volume 95.9 fL (81-99); Mean Platelet Vol. 9.9 fl (6.2-12.0); Platelet Count 369 K/mm3 (150-450); RBC Distribution Width CV 13.2 % (11.6-14.6); RBC Distribution Width SD 46.1 fl (35.1-43.9); Red Blood Count 3.38 M/mm3 (4.2-5.4); White Blood Count 12.3 K/mm3 (4.4-11.0)
[2022-02-07 09:30] LABS: PTHIN 53.7 pg/mL (18.4-80.1)
[2022-02-07 10:09] LABS: ALB/GLOB Ratio 0.7 RATIO (0.9-2.4); AST(SGOT) 12 U/L (15-37); Alanine Aminotransfer ALT/SGPT 20 U/L (13-56); Albumin, Serum 2.8 g/dL (3.2-5.0); Alkaline Phosphatase 76 U/L (45-117); Anion Gap 5 (5-15); BUN 21 mg/dL (7-18); BUN/Creat Ratio 16.5 RATIO (10-20); Chloride 107 mmol/L (98-107); Cholesterol 138 mg/dL (200); Creatinine, Serum 1.27 mg/dL (0.55-1.02); EST Glomerular Filtration Rate 43 mL/min (>60); Est Glom Filt Rate - Afr Amer 52 mL/min (>60); Globulin 4.3 g/dL (2.2-4.2); Glucose 127 mg/dL (74-106); Hepatitis C Antibody Non-Reactive (Nonreactive); High Density Lipoprotein 47 mg/dL; Potassium 4.6 mmol/L (3.5-5.1); Protein, Total 7.1 g/dL (6.4-8.2); Sodium Level 139 mmol/L (136-145); Thyroid Stim Hormone (TSH) 2.19 uIU/mL (0.358-3.74); Triglycerides 186 mg/dL; Very Low Density Lipoprotein 37 mg/dL (5-40); Vitamin B12 1036 pg/mL (211-911); Vitamin D,25 Hydroxy 55.6 ng/mL
[2022-02-07 10:55] LABS: Hemoglobin A1c 6.3 % (3.8-5.6)
== END | disposition home or self-care (01) ==
LOC: LAB 08:23
PROVIDERS: PCP Student in an Organized Health Care Education/Training Program; Referring Provider Student in an Organized Health Care Education/Training Program; Visit Provider Student in an Organized Health Care Education/Training Program
DX: N18.30 Chronic kidney disease, stage 3 unspecified (principal); E11.22 Type 2 diabetes mellitus with diabetic chronic kidney disease; R79.89 Other specified abnormal findings of blood chemistry; R41.3 Other amnesia; Z11.59 Encounter for screening for other viral diseases
CPT/HCPCS: 36415; 80053; 80061; 82306; 82607; 82746; 83036; 83970; 84439; 84443; 85027; 86803

== ENCOUNTER → 2022-09-12 | Outpatient (CLI) | payer MEDICARE, OTHER, SELFPAY ==
[2022-09-12 10:05] LABS: Hematocrit 29.8 % (37-47); Hemoglobin 8.9 g/dL (12.0-15.0); Mean Corp Hgb Conc 29.9 g/dL (32-36); Mean Corpuscular Hgb 24.6 pg (27.0-32.0); Mean Corpuscular Volume 82.3 fL (81-99); Mean Platelet Vol. 9.4 fl (6.2-12.0); Platelet Count 528 K/mm3 (150-450); RBC Distribution Width CV 19.4 % (11.6-14.6); RBC Distribution Width SD 57.1 fl (35.1-43.9); Red Blood Count 3.62 M/mm3 (4.2-5.4); White Blood Count 17.2 K/mm3 (4.4-11.0)
[2022-09-12 10:49] LABS: Hemoglobin A1c 5.6 % (3.8-5.6)
[2022-09-12 10:56] LABS: ALB/GLOB Ratio 0.5 RATIO (0.9-2.4); AST(SGOT) 19 U/L (15-37); Alanine Aminotransfer ALT/SGPT 15 U/L (13-56); Albumin, Serum 2.3 g/dL (3.2-5.0); Alkaline Phosphatase 99 U/L (45-117); Anion Gap 8 (5-15); BUN 17 mg/dL (7-18); BUN/Creat Ratio 13.5 RATIO (10-20); Calcium,Total 8.8 mg/dL (8.5-10.1); Chloride 107 mmol/L (98-107); Cholesterol 114 mg/dL (200); Creatinine, Serum 1.26 mg/dL (0.55-1.02); EST Glomerular Filtration Rate 43 mL/min (>60); Est Glom Filt Rate - Afr Amer 53 mL/min (>60); Ferritin 93 ng/mL (8-252); Globulin 4.5 g/dL (2.2-4.2); Glucose 86 mg/dL (74-106); High Density Lipoprotein 47 mg/dL; Potassium 4.4 mmol/L (3.5-5.1); Protein, Total 6.8 g/dL (6.4-8.2); Sodium Level 138 mmol/L (136-145); Thyroid Stim Hormone (TSH) 1.08 uIU/mL (0.358-3.74); Triglycerides 111 mg/dL; Very Low Density Lipoprotein 22 mg/dL (5-40)
[2022-09-12 11:14] LABS: Hepatitis C Antibody Non-Reactive (Nonreactive); Vitamin D,25 Hydroxy 66.3 ng/mL
== END | disposition home or self-care (01) ==
LOC: LAB 09:31
PROVIDERS: PCP Student in an Organized Health Care Education/Training Program; Referring Provider Student in an Organized Health Care Education/Training Program; Visit Provider Student in an Organized Health Care Education/Training Program
DX: E11.22 Type 2 diabetes mellitus with diabetic chronic kidney disease (principal); N18.30 Chronic kidney disease, stage 3 unspecified; E61.1 Iron deficiency; Z11.59 Encounter for screening for other viral diseases
CPT/HCPCS: 36415; 80053; 80061; 82306; 82728; 83036; 84443; 85027; 86803

== ENCOUNTER 2022-09-21 18:29 | Emergency (ER) | payer MEDICARE, OTHER, SELFPAY ==
[2022-09-21 18:31] VITALS: BP 139/75; PULSE 101; RESP 18; TEMP 36.6; O2SAT 98; BMI 19.8
--- NOTE | 2022-09-21 18:57 | EDS_ITS ---
HPI History of Present Illness Chief Complaint: Hypoglycemia Informant: patient and family Narrative Narrative: Patient presents via EMS with altered mental status with low blood sugar. Apparently family came to check on her and found her sitting on the sofa with decreased mental status. Her blood sugar was found to be 33. EMS gave D10 in route and on arrival patient is alert and appropriate. She has no complaints. Family at bedside states that she had blood work done last week that revealed an elevated white blood cell count. She was seen by her PCP yesterday and had a urinalysis that did not show overt infection. It is being sent for culture. Patient denies cough or congestion. She takes insulin once a day and that dose has not recently changed. She does state that she ate breakfast this morning but does not believe she had lunch or dinner. Family does state that the patient has lost 30 pounds over the past 6 months. She does not routinely check her blood sugars or keep track of them. [facility] Medical History Atherosclerotic heart disease of [place] coronary artery without angina pectoris Dehydration Diabetes mellitus Essential hypertension History of left heart catheterization (04/03/13) Hyperlipidemia PVC (premature ventricular contraction) Sick sinus syndrome Sinus tachycardia Home Medications [id number] acid 0.4 mg-lycopene 300 mcg-lutein 250 mcg tablet (Centrum Silver) 1 tab PO DAILY Supplement 07/25/20 [History Last Taken Unknown] amlodipine 10 mg tablet 10 mg PO DAILY BP 06/08/21 [History Last Taken Unknown] aspirin 81 mg chewable tablet 81 mg PO DAILYCM Heart 06/08/21 [History Last Taken Unknown] brimonidine 0.2 % eye drops 1 drp LEFT EYE BID Check with primary doctor 06/08/21 [History Last Taken Unknown] calcium carbonate 200 mg calcium (500 mg) chewable tablet 500 mg PO BIDCM Supplement 06/08/21 [History Last Taken Unknown] ferrous sulfate 325 mg (65 mg iron) tablet (FeroSul) 325 mg PO DAILYCM Supplement 06/08/21 [History Last Taken Unknown] insulin glargine-yfgn 100 unit/mL (3 mL) subcutaneous pen 18 unit subcut DAILY Diabetes 06/08/21 [History Last Taken Unknown] losartan 100 mg tablet 100 mg PO DAILY BP 06/08/21 [History Last Taken Unknown] timolol maleate 0.25 % eye drops 1 drp LEFT EYE BID Check with primary doctor 06/08/21 [History Last Taken Unknown] difluprednate 0.05 % eye drops 1 drp ophthalmic (eye) .COMPLEX 09/20/21 [History Last Taken Unknown] isosorbide mononitrate 60 mg tablet,extended release 24 hr 60 mg PO BID Heart #180 tabs 03/22/22 [Rx Last Taken Unknown] rosuvastatin 20 mg tablet 20 mg PO DAILY #90 tabs 09/17/22 [Rx Last Taken Unknown] Allergy/AdvReac Type Severity Reaction Status Date / Time Sulfa (Sulfonamide Allergy Unknown Verified 03/22/22 08:47 Antibiotics) Family History Father CAD (coronary artery disease) Mother Diabetes Brother Lung cancer Brother Lung cancer Surgical History 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) H/O endarterectomy History of coronary artery bypass surgery (~06/13/13) History of tubal ligation 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) Social History household members: none Smoking Status: Never smoker alcohol intake: never substance use type: does not use ROS ROS ED Constitutional Constitutional ED: Denies chills or fever(s) Eyes Eyes: Denies change in vision ENT ENT ED: Denies rhinorrhea or sore throat Cardiovascular Cardiovascular: Denies chest pain or palpitations Respiratory/Chest Respiratory/Chest: Denies cough or dyspnea Gastrointestinal Gastrointestinal: Denies abdominal pain, diarrhea or vomiting Genitourinary Genitourinary ED: Denies dysuria Neurologic Neurologic: Reports weakness Psychiatric Psychiatric: Denies anxiety or depression Allergic/Immunologic Allergic/Immunologic ED: Denies mouth swelling or tongue swelling EXAM Physical Exam Const Vital Signs: 09/21/22 18:31 Temperature 97.8 F Temperature Source Oral Pulse Rate 101 H Respiratory Rate 18 Blood Pressure 139/75 H Blood Pressure Mean 96 Pulse Ox 98 Oxygen Delivery Method Room Air Positive well nourished and well developed General Appearance ED: well developed HEENT Reports moist mucous membranes Eyes EOMs intact bilaterally Chest Wall inspection of chest normal and palpation of chest normal Resp normal respiratory effort and clear to auscultation bilaterally Cardio regular rate and regular rhythm GI non-tender Palpation: soft Extremity normal to inspection Neuro Neuro Narrative: No focal neurologic deficit. Sensorium / Orientation: alert Skin no rashes or lesions noted MDM MDM MDM Narrative Medical decision making narrative: Given the patient's recent elevated white count repeat labs were obtained. Patient was given p.o. diet here and repeat blood sugar obtained. Lab Data Attestation: I reviewed the patient's lab results. Labs: Laboratory Results - last 24 hr 09/21/22 09/21/22 09/21/22 18:39 18:45 18:45 WBC Cancelled Corrected WBC Cancelled RBC Cancelled Hgb Cancelled Hct Cancelled MCV Cancelled MCH Cancelled MCHC Cancelled RDW Std Deviation Cancelled RDW Coeff of Vicki Cancelled Plt Count Cancelled MPV Cancelled Immature Gran % (Auto) Cancelled Neut % (Auto) Cancelled Lymph % (Auto) Cancelled Crosby % (Auto) Cancelled Eos % (Auto) Cancelled Baso % (Auto) Cancelled Absolute Neuts (auto) Cancelled Absolute Lymphs (auto) Cancelled Total Counted Cancelled Neutrophils % (Manual) Cancelled Band Neutrophils % Cancelled Lymphocytes % (Manual) Cancelled Monocytes % (Manual) Cancelled Eosinophils % (Manual) Cancelled Basophils % (Manual) Cancelled Metamyelocytes % Cancelled Myelocytes % Cancelled Promyelocytes % Cancelled Blast Cells % Cancelled Plasma Cell % (Manual) Cancelled Other Cells % Cancelled Nucleated RBC % Cancelled Nucleated RBCs/100 WBC Cancelled Differential Comment Cancelled Diff Path Review Cancelled Hypersegmented Neuts Cancelled Atypical Lymphocytes Cancelled Reactive Lymphocytes Cancelled Smudge Cells Cancelled Toxic Granulation Cancelled Toxic Vacuolation Cancelled Dohle Bodies Cancelled Sampson Rods Cancelled Platelet Estimate Cancelled Plt Morphology Comment Cancelled RBC Morphology Cancelled Cancelled Polychromasia Cancelled Hypochromasia Cancelled Poikilocytosis Cancelled Basophilic Stippling Cancelled Anisocytosis Cancelled Microcytosis Cancelled Macrocytosis Cancelled Spherocytes Cancelled Sickle Cells Cancelled Target Cells Cancelled Tear Drop Cells Cancelled Ovalocytes Cancelled Stomatocytes Cancelled Blanchard-Kaaawa Bodies Cancelled [place] Cells Cancelled Bite Cells Cancelled Crenated Cell Cancelled Acanthocytes (Spur) Cancelled Rouleaux Cancelled Schistocytes Cancelled Sodium 137 Potassium 3.9 Chloride 110 H Carbon Dioxide 19.0 L Anion Gap 8 BUN 13 Creatinine 0.95 Estim Creat Clear Calc 39.00 Est GFR (MDRD) Af Amer 73 Est GFR (MDRD) Non-Af 60 BUN/Creatinine Ratio 13.7 Glucose 162 H Hemoglobin A1c Cancelled Calcium 8.0 L POC Glucose 157 H 09/21/22 09/21/22 20:07 20:10 WBC 15.5 H Corrected WBC RBC 3.96 L Hgb 9.9 L Hct 32.6 L MCV 82.3 MCH 25.0 L MCHC 30.4 L RDW Std Deviation 58.4 H RDW Coeff of Vicki 19.8 H Plt Count 349 MPV 10.3 Immature Gran % (Auto) 0.500 Neut % (Auto) 86.2 H Lymph % (Auto) 7.7 L Crosby % (Auto) 5.0 Eos % (Auto) 0.3 Baso % (Auto) 0.3 Absolute Neuts (auto) 13.4 H Absolute Lymphs (auto) 1.20 Total Counted Neutrophils % (Manual) Band Neutrophils % Lymphocytes % (Manual) Monocytes % (Manual) Eosinophils % (Manual) Basophils % (Manual) Metamyelocytes % Myelocytes % Promyelocytes % Blast Cells % Plasma Cell % (Manual) Other Cells % Nucleated RBC % 0 Nucleated RBCs/100 WBC Differential Comment Diff Path Review Hypersegmented Neuts Atypical Lymphocytes Reactive Lymphocytes Smudge Cells Toxic Granulation Toxic Vacuolation Dohle Bodies Sampson Rods Platelet Estimate Plt Morphology Comment RBC Morphology Polychromasia Hypochromasia Poikilocytosis Basophilic Stippling Anisocytosis Microcytosis Macrocytosis Spherocytes Sickle Cells Target Cells Tear Drop Cells Ovalocytes Stomatocytes Blanchard-Kaaawa Bodies Rukhsana Cells Bite Cells Crenated Cell Acanthocytes (Spur) Rouleaux Schistocytes Sodium Potassium Chloride Carbon Dioxide Anion Gap BUN Creatinine Estim Creat Clear Calc Est GFR (MDRD) Af Amer Est GFR (MDRD) Non-Af BUN/Creatinine Ratio Glucose Hemoglobin A1c 5.7 H Calcium POC Glucose 117 H Treatment and Re-Evaluation :: CBC was a white count of 15.5 compared to recent white count of 17.2. Hemoglobin is 9.9, up from 8.9 last week. She does have 86% neutrophils. She does have a urinalysis checked yesterday that was unremarkable. Her hemoglobin A1c is 5.7. After taking p.o. diet her blood sugar is currently 117. I discussed with her the importance of monitoring her blood sugars and keeping a journal to take to her next doctor's appointment. Given that she has lost 30 pounds in the last 6 months she may need to have her insulin adjusted. Family is comfortable with the plan. Discharge Plan Triage Chief Complaint: Hypoglycemia ED Provider: Amelia Espinosa Dx/Rx/DC Orders Clinical Impression: Hypoglycemia Instructions: Hypoglycemia (Low Blood Sugar), ED Diabetic Insulin Reaction Prescriptions: No Action Centrum Silver 0.4-300-250 mg-mcg-mcg tablet 1 tab PO DAILY isosorbide mononitrate 60 mg tablet extended release 24 hr 60 mg PO BID Qty: 180 3RF amlodipine 10 mg tablet 10 mg PO DAILY timolol maleate 0.25 % drops 1 drp LEFT EYE BID ferrous sulfate [FeroSul] 325 mg (65 mg iron) tablet 325 mg PO DAILYCM calcium carbonate 200 mg calcium (500 mg) tablet,chewable 500 mg PO BIDCM brimonidine 0.2 % drops 1 drp LEFT EYE BID aspirin 81 mg tablet,chewable 81 mg PO DAILYCM losartan 100 mg tablet 100 mg PO DAILY insulin glargine-yfgn 100 unit/mL (3 mL) insulin pen 18 unit subcut DAILY difluprednate 0.05 % drops 1 drp ophthalmic (eye) .COMPLEX Rx Instructions: 1 drp into the eye(s) daily times 1 week then stop.; left eye rosuvastatin 20 mg tablet 20 mg PO DAILY Qty: 90 3RF Primary Care Provider: Rosalino Del Valle Referrals: Rosalino Del Valle DO [Primary Care Provider] - 1-2 Weeks Disposition Disposition: Home, Self Care
[2022-09-21 18:58] LABS: Bedside Glucose 157 mg/dL (74-106)
--- NOTE | 2022-09-21 19:25 | ED.RN ---
pt given peanut butter, crackers, yogurt & cheese stick.
[2022-09-21 19:33] LABS: Anion Gap 8 (5-15); BUN 13 mg/dL (7-18); BUN/Creat Ratio 13.7 RATIO (10-20); Chloride 110 mmol/L (98-107); Creatinine, Serum 0.95 mg/dL (0.55-1.02); EST Glomerular Filtration Rate 60 mL/min (>60); Est Glom Filt Rate - Afr Amer 73 mL/min (>60); Glucose 162 mg/dL (74-106); Potassium 3.9 mmol/L (3.5-5.1); Sodium Level 137 mmol/L (136-145)
[2022-09-21 20:18] LABS: Absolute Neutrophil Count 13.4 X10^3/uL (2.0-7.7); Basophil# 0.05 X10^3/uL; Basophil% 0.3 % (0-1); Eosinophil# 0.05 X10^3/uL; Eosinophils% 0.3 % (0-5); Hematocrit 32.6 % (37-47); Hemoglobin 9.9 g/dL (12.0-15.0); Lymphocyte % 7.7 % (19-41); Mean Corp Hgb Conc 30.4 g/dL (32-36); Mean Corpuscular Volume 82.3 fL (81-99); Mean Platelet Vol. 10.3 fl (6.2-12.0); Monocyte# 0.77 X10^3/uL; NRBC Flagged by Analyzer 0 % (0-5); Neutrophil # 13.36 X10^3/uL (2.7-7.7); Neutrophil % 86.2 % (47-70); Platelet Count 349 K/mm3 (150-450); RBC Distribution Width CV 19.8 % (11.6-14.6); RBC Distribution Width SD 58.4 fl (35.1-43.9); Red Blood Count 3.96 M/mm3 (4.2-5.4); White Blood Count 15.5 K/mm3 (4.4-11.0)
[2022-09-21 20:27] LABS: Bedside Glucose 117 mg/dL (74-106)
[2022-09-21 20:36] LABS: Hemoglobin A1c 5.7 % (3.8-5.6)
[2022-09-21 21:15] VITALS: BP 120/86; PULSE 76; RESP 16; O2SAT 98
== END 2022-09-21 21:15 | disposition home or self-care (01) ==
PROVIDERS: Emergency Provider Emergency Medicine; PCP Student in an Organized Health Care Education/Training Program; Visit Provider Emergency Medicine
DX: E11.649 Type 2 diabetes mellitus with hypoglycemia without coma (principal); I25.10 Atherosclerotic heart disease of native coronary artery without angina pectoris; R41.82 Altered mental status, unspecified; Z95.1 Presence of aortocoronary bypass graft; Z95.0 Presence of cardiac pacemaker
CPT/HCPCS: 80048; 82962; 83036; 85025; 99285; A4216